=== PATIENT | male | born 1955 | race African-American/Black ===

== ENCOUNTER 2016-09-10 12:56 | Inpatient (IN) | payer OTHER ==
[2016-09-10 15:49] VITALS: BMI 24.3
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
[2016-09-10] MEDS ORDERED: MAGNESIUM HYDROX 2400MG/30ML ORAL SUSPENSION 30 ML CUP PO PRN (17:31)
[2016-09-10] MEDS ORDERED: P-EPHED 60MG/TRIPROLIDI 2.5MG TABLET PO PRN (17:31)
[2016-09-10] MEDS ORDERED: MAGNESIUM CITRATE 300 ML BOTTLE PO PRN (17:31)
[2016-09-10] MEDS ORDERED: NICOTINE POLACRILEX 2 MG GUM BC PRN (17:31)
[2016-09-10] MEDS ORDERED: guaiFENesin/D-METHORPHAN HB 10 ML UNIT-DOSE CUPS PO PRN (17:31)
[2016-09-10] MEDS ORDERED: chlordiazePOXIDE HCL 25 MG CAPSULE PO PRN (17:31)
[2016-09-10] MEDS ORDERED: ACETAMINOPHEN 325 MG TABLET (FP) PO PRN (17:31)
[2016-09-10] MEDS ORDERED: MAG HYDROX/AL HYDROX/SIMETH 30 ML UNIT-DOSE CUP PO PRN (17:31)
[2016-09-10] MEDS ORDERED: IBUPROFEN 400 MG TABLET (FP) PO PRN (17:31)
[2016-09-10] MEDS ORDERED: LOPERAMIDE HCL 2 MG CAPSULE PO PRN (17:31)
[2016-09-10] MEDS ORDERED: MENTHOL/PHENOL 1 EACH UD MM PRN (17:31)
[2016-09-10] MEDS ORDERED: hydrOXYzine PAMOATE 50 MG CAPSULE (FP) PO PRN (17:31)
[2016-09-10 21:16] LABS: URINE APPEARANCE CLEAR; URINE BILIRUBIN NEGATIVE (NEGATIVE); URINE BLOOD NEGATIVE (NEGATIVE); URINE COLOR LTYELLOW; URINE GLUCOSE (UA) NEGATIVE (NEGATIVE); URINE KETONE TRACE (NEGATIVE); URINE LEUK ESTERASE NEGATIVE (NEGATIVE); URINE NITRITE NEGATIVE (NEGATIVE); URINE PROTEIN NEGATIVE (NEGATIVE); URINE UROBILINOGEN NEGATIVE E.U./dl (0.2-1.0)
[2016-09-10] MEDS: diphenhydrAMINE HCL 50 MG CAPSULE PO PRN (22:41)
[2016-09-10] MEDS: LATANOPROST 0.005% OPHTH SOLN 2.5ML BOTTLE OD SCH (22:41)
[2016-09-10] MEDS: BRIMONIDINE TARTRATE 0.15% OPHTHALMIC 5 ML BOTTLE OD SCH (22:41)
[2016-09-10] MEDS: THIAMINE HCL 100 MG TABLET (FP) PO SCH (22:41)
[2016-09-10] MEDS: chlordiazePOXIDE HCL 25 MG CAPSULE PO SCH (22:41)
[2016-09-11] MEDS: chlordiazePOXIDE HCL 25 MG CAPSULE PO SCH ×4 (06:11→22:29)
[2016-09-11 10:09] LABS: MCHC 33.2 g/dl (32.0-35.9); MEAN CELL VOLUME 87.5 fl (80-96); MEAN PLT VOLUME 9.5 fl (7.5-11.1); PLATELET COUNT 185 K/MM3 (134-434); RDW 14.2 % (11.9-15.9)
--- NOTE | 2016-09-11 10:34 | CONSULT ---
[facility] Psychiatric Consult - Data Date of interview: 09/11/16 Admission source: [facility] Identifying data: Patient is approached at bedside,for psychiatric interview.He refuses." I have nothing to say to psychiatrists." Resting in bed.Back turned towards technical publications writer.Totally uncooperative and hostile.Staff is made aware.
[2016-09-11] MEDS: PRENATAL VITAMINS W/ FOLIC ACID TABLET (FP) PO SCH (10:41)
[2016-09-11] MEDS: NICOTINE 14 MG/24 HOURS TOPICAL PATCH TD SCH (10:42)
[2016-09-11] MEDS: BRIMONIDINE TARTRATE 0.15% OPHTHALMIC 5 ML BOTTLE OD SCH ×2 (10:42→22:29)
[2016-09-11 10:57] LABS: ALBUMIN 3.5 g/dl (3.4-5.0); ANION GAP 11 (8-16); CALCIUM 8.6 mg/dL (8.5-10.1); CO2 22 mmol/L (21-32); COCKROFT - GAULT 67.56; CREATININE 1.2 mg/dL (0.7-1.3); GLUCOSE,RANDOM 108 mg/dL (74-106); TOT PROT 7.5 g/dl (6.4-8.2)
[2016-09-11 10:58] LABS: ALK PHOS 71 U/L (45-117); BILIRUBIN,TOTAL 0.5 mg/dL (0.2-1.0); SGOT/AST 30 U/L (15-37); SGPT/ALT 20 U/L (12-78)
--- NOTE | 2016-09-11 11:45 | EKG ---
Test Reason : Blood Pressure : / mmHG Vent. Rate : 062 BPM Atrial Rate : 062 BPM P-R Int : 166 ms QRS Dur : 084 ms QT Int : 440 ms P-R-T Axes : 060 015 033 degrees QTc Int : 446 ms NORMAL SINUS RHYTHM NORMAL ECG NO PREVIOUS ECGS AVAILABLE Confirmed by SANDY ZARATE MD ([id number]) on 09/11/2016 11:44:57 AM Referred By: Confirmed By:SANDY ZARATE MD
--- NOTE | 2016-09-11 15:38 | PN ---
[facility] CIWA - CIWA Score Nausea/Vomitin-No Nausea/No Vomiting Muscle Tremors: 3 Anxiety: 4-Mod. Anxious/Guarded Agitation: 3 Paroxysmal Sweats: 3 Orientation: 0-Oriented Tacttile Disturbances: 1-Very Mild Itch/Numbness Auditory Disturbances: 0-None Visual Disturbances: 0-None Headache: 0-None Present CIWA-Ar Total Score: 14 BHS Progress Note (SOAP) Subjective: Anxiety,tremors,sweating,interrupted sleep,restless. Objective: 09/11/16 15:37 Vital Signs - 8 hr 09/11/16 09/11/16 09:38 13:40 Temperature 98.5 F 98.5 F Pulse Rate 64 69 Respiratory 18 18 Rate Blood Pressure 124/85 122/77 Laboratory Last Values WBC 4.0 K/mm3 (4.0-10.0) 09/11/16 06:00 RBC 4.60 M/mm3 (4.00-5.60) 09/11/16 06:00 Hgb 13.3 GM/dL (11.7-16.9) 09/11/16 06:00 Hct 40.2 % (35.4-49) 09/11/16 06:00 MCV 87.5 fl (80-96) 09/11/16 06:00 MCHC 33.2 g/dl (32.0-35.9) 09/11/16 06:00 RDW 14.2 % (11.9-15.9) 09/11/16 06:00 Plt Count 185 K/MM3 (134-434) D 09/11/16 06:00 MPV 9.5 fl (7.5-11.1) 09/11/16 06:00 Sodium 142 mmol/L (136-145) 09/11/16 06:00 Potassium 4.4 mmol/L (3.5-5.1) 09/11/16 06:00 Chloride 109 mmol/L (98-107) H 09/11/16 06:00 Carbon Dioxide 22 mmol/L (21-32) D 09/11/16 06:00 Anion Gap 11 (8-16) 09/11/16 06:00 BUN 18 mg/dL (7-18) 09/11/16 06:00 Creatinine 1.2 mg/dL (0.7-1.3) 09/11/16 06:00 Creat Clearance w eGFR > 60 (>60) 09/11/16 06:00 Random Glucose 108 mg/dL (74-106) H 09/11/16 06:00 Calcium 8.6 mg/dL (8.5-10.1) 09/11/16 06:00 Total Bilirubin 0.5 mg/dL (0.2-1.0) D 09/11/16 06:00 AST 30 U/L (15-37) D 09/11/16 06:00 ALT 20 U/L (12-78) 09/11/16 06:00 Alkaline Phosphatase 71 U/L (45-117) 09/11/16 06:00 Total Protein 7.5 g/dl (6.4-8.2) 09/11/16 06:00 Albumin 3.5 g/dl (3.4-5.0) 09/11/16 06:00 Urine Color Ltyellow 09/10/16 20:52 Urine Appearance Clear 09/10/16 20:52 Urine pH 5.0 (5.0-8.0) D 09/10/16 20:52 Ur Specific [place] 1.020 (1.005-1.025) 09/10/16 20:52 Urine Protein Negative (NEGATIVE) 09/10/16 20:52 Urine Glucose (UA) Negative (NEGATIVE) 09/10/16 20:52 Urine Ketones Trace (NEGATIVE) H 09/10/16 20:52 Urine Blood Negative (NEGATIVE) 09/10/16 20:52 Urine Nitrite Negative (NEGATIVE) 09/10/16 20:52 Urine Bilirubin Negative (NEGATIVE) 09/10/16 20:52 Urine Urobilinogen Negative E.U./dl (0.2-1.0) 09/10/16 20:52 Ur Leukocyte Esterase Negative (NEGATIVE) 09/10/16 20:52 RPR Titer Nonreactive (NONREACTIVE) 09/11/16 06:00 labs noted Assessment: 09/11/16 15:37 Withdrawal sx. Plan: Continue detox
[2016-09-11] MEDS: LATANOPROST 0.005% OPHTH SOLN 2.5ML BOTTLE OD SCH (22:28)
[2016-09-11] MEDS: THIAMINE HCL 100 MG TABLET (FP) PO SCH (22:28)
[2016-09-11] MEDS: diphenhydrAMINE HCL 50 MG CAPSULE PO PRN (22:29)
[2016-09-12] MEDS: chlordiazePOXIDE HCL 25 MG CAPSULE PO SCH ×3 (06:00→16:50)
[2016-09-12] MEDS: NICOTINE 14 MG/24 HOURS TOPICAL PATCH TD SCH (10:50)
[2016-09-12] MEDS: PRENATAL VITAMINS W/ FOLIC ACID TABLET (FP) PO SCH (10:50)
[2016-09-12] MEDS: BRIMONIDINE TARTRATE 0.15% OPHTHALMIC 5 ML BOTTLE OD SCH ×2 (10:50→22:12)
--- NOTE | 2016-09-12 11:37 | PN ---
[facility] CIWA - CIWA Score Nausea/Vomitin-No Nausea/No Vomiting Muscle Tremors: 4-Moderate,w/Arms Extend Anxiety: 4-Mod. Anxious/Guarded Agitation: 4-Moderately Restless Paroxysmal Sweats: 1-Minimal Palms Moist Orientation: 0-Oriented Tacttile Disturbances: 3-Moderate Itch/Numb/Burn Auditory Disturbances: 0-None Visual Disturbances: 0-None Headache: 0-None Present CIWA-Ar Total Score: 16 BHS Progress Note (SOAP) Subjective: SLIGHT ANXIETY,TREMORS,SWEATS. Objective: 09/12/16 11:37 Vital Signs Temperature 98.3 F 09/12/16 09:37 Pulse Rate 59 L 09/12/16 09:37 Respiratory Rate 18 09/12/16 09:37 Blood Pressure 137/88 09/12/16 09:37 O2 Sat by Pulse Oximetry (%) Laboratory Last Values WBC 4.0 K/mm3 (4.0-10.0) 09/11/16 06:00 RBC 4.60 M/mm3 (4.00-5.60) 09/11/16 06:00 Hgb 13.3 GM/dL (11.7-16.9) 09/11/16 06:00 Hct 40.2 % (35.4-49) 09/11/16 06:00 MCV 87.5 fl (80-96) 09/11/16 06:00 MCHC 33.2 g/dl (32.0-35.9) 09/11/16 06:00 RDW 14.2 % (11.9-15.9) 09/11/16 06:00 Plt Count 185 K/MM3 (134-434) D 09/11/16 06:00 MPV 9.5 fl (7.5-11.1) 09/11/16 06:00 Sodium 142 mmol/L (136-145) 09/11/16 06:00 Potassium 4.4 mmol/L (3.5-5.1) 09/11/16 06:00 Chloride 109 mmol/L (98-107) H 09/11/16 06:00 Carbon Dioxide 22 mmol/L (21-32) D 09/11/16 06:00 Anion Gap 11 (8-16) 09/11/16 06:00 BUN 18 mg/dL (7-18) 09/11/16 06:00 Creatinine 1.2 mg/dL (0.7-1.3) 09/11/16 06:00 Creat Clearance w eGFR > 60 (>60) 09/11/16 06:00 Random Glucose 108 mg/dL (74-106) H 09/11/16 06:00 Calcium 8.6 mg/dL (8.5-10.1) 09/11/16 06:00 Total Bilirubin 0.5 mg/dL (0.2-1.0) D 09/11/16 06:00 AST 30 U/L (15-37) D 09/11/16 06:00 ALT 20 U/L (12-78) 09/11/16 06:00 Alkaline Phosphatase 71 U/L (45-117) 09/11/16 06:00 Total Protein 7.5 g/dl (6.4-8.2) 09/11/16 06:00 Albumin 3.5 g/dl (3.4-5.0) 09/11/16 06:00 Urine Color Ltyellow 09/10/16 20:52 Urine Appearance Clear 09/10/16 20:52 Urine pH 5.0 (5.0-8.0) D 09/10/16 20:52 Ur Specific [place] 1.020 (1.005-1.025) 09/10/16 20:52 Urine Protein Negative (NEGATIVE) 09/10/16 20:52 Urine Glucose (UA) Negative (NEGATIVE) 09/10/16 20:52 Urine Ketones Trace (NEGATIVE) H 09/10/16 20:52 Urine Blood Negative (NEGATIVE) 09/10/16 20:52 Urine Nitrite Negative (NEGATIVE) 09/10/16 20:52 Urine Bilirubin Negative (NEGATIVE) 09/10/16 20:52 Urine Urobilinogen Negative E.U./dl (0.2-1.0) 09/10/16 20:52 Ur Leukocyte Esterase Negative (NEGATIVE) 09/10/16 20:52 RPR Titer Nonreactive (NONREACTIVE) 09/11/16 06:00 Assessment: 09/12/16 11:38 WITHDRAWAL SX Plan: CONTINUE DETOX
[2016-09-12] MEDS: chlordiazePOXIDE 5 MG CAPSULE PO SCH (22:12)
[2016-09-12] MEDS: THIAMINE HCL 100 MG TABLET (FP) PO SCH (22:12)
[2016-09-12] MEDS: LATANOPROST 0.005% OPHTH SOLN 2.5ML BOTTLE OD SCH (22:13)
[2016-09-12] MEDS: diphenhydrAMINE HCL 50 MG CAPSULE PO PRN (22:14)
[2016-09-13] MEDS: chlordiazePOXIDE 5 MG CAPSULE PO SCH ×3 (06:00→17:11)
[2016-09-13] MEDS: BRIMONIDINE TARTRATE 0.15% OPHTHALMIC 5 ML BOTTLE OD SCH ×2 (10:28→22:39)
[2016-09-13] MEDS: NICOTINE 14 MG/24 HOURS TOPICAL PATCH TD SCH (10:28)
[2016-09-13] MEDS: PRENATAL VITAMINS W/ FOLIC ACID TABLET (FP) PO SCH (10:28)
--- NOTE | 2016-09-13 11:05 | PN ---
BHS Progress Note (SOAP) Subjective: DECREASED ANXIETY. FATIGUE. Objective: 09/13/16 11:04 Vital Signs Temperature 97.2 F L 09/13/16 09:14 Pulse Rate 60 09/13/16 09:14 Respiratory Rate 18 09/13/16 09:14 Blood Pressure 124/81 09/13/16 09:14 O2 Sat by Pulse Oximetry (%) Assessment: 09/13/16 11:04 WITHDRAWAL SX Plan: CONTINUE DETOX
[2016-09-13] MEDS: THIAMINE HCL 100 MG TABLET (FP) PO SCH (22:38)
[2016-09-13] MEDS: diphenhydrAMINE HCL 50 MG CAPSULE PO PRN (22:39)
[2016-09-13] MEDS: chlordiazePOXIDE HCL 10 MG CAPSULE PO SCH (22:39)
[2016-09-13] MEDS: LATANOPROST 0.005% OPHTH SOLN 2.5ML BOTTLE OD SCH (22:40)
[2016-09-14] MEDS: chlordiazePOXIDE HCL 10 MG CAPSULE PO SCH (06:06)
[2016-09-14 08:57] VITALS: BP 112/76; PULSE 66; TEMP 99.8
--- NOTE | 2016-09-14 09:01 | DS ---
[facility] Detox Discharge Summary Admission Date: 09/10/16 Discharge Date: 09/14/16 - History Present History: Alcohol Dependence, Cocaine Dependence Additional Comments: DETOX COMPLETED.ALERT O X 3. NAD. Pertinent Past History: HX LEFT EYEBALL ENUCLEATION LEFT EYE BLINDNESS HEP C AIDS GLAUCOMA - Physical Exam Results Vital Signs: Vital Signs Temperature 99.8 F H 09/14/16 08:56 Pulse Rate 66 09/14/16 08:56 Respiratory Rate 18 09/14/16 08:56 Blood Pressure 112/76 09/14/16 08:56 O2 Sat by Pulse Oximetry (%) Pertinent Admission Physical Exam Findings: WITHDRAWAL SX - Treatment Hospital Course: Detox Protocol Followed, Detoxed Safely, Responded well, Discharged Condition Good - Medication Discharge Medications: Ambulatory Orders Brimonidine Tartrate [Alphagan 0.15% -] 1 drop OD TID #1 drops 09/15/14 Latanoprost 0.005% Eye Drops [Xalatan 0.005% Eye Drops -] 1 drop OD HS #1 drops 09/15/14 Quetiapine Fumarate [Seroquel -] 50 mg PO HS 09/10/16 Trazodone HCl [Desyrel -] 200 mg PO HS 09/10/16 - Diagnosis (1) Alcohol dependence with uncomplicated withdrawal Current Visit: Yes Status: Acute (2) Acquired immune deficiency syndrome (AIDS) Current Visit: Yes Status: Chronic (3) Blind left eye Current Visit: Yes Status: Chronic (4) Glaucoma Current Visit: Yes Status: Chronic Qualifiers: Glaucoma type: other Laterality: right Qualified Code(s): H40.89 - Other specified glaucoma (5) HEP-C Current Visit: Yes Status: Chronic (6) Nicotine dependence Current Visit: Yes Status: Acute Qualifiers: Nicotine product type: cigarettes Substance use status: in withdrawal Qualified Code(s): F17.213 - Nicotine dependence, cigarettes, with withdrawal - AMA Did Patient Leave Against Medical Advice: No
== END 2016-09-14 09:00 | disposition home or self-care (01) | DRG 775 ==
LOC: YASAS 12:56 → Y3N 19:06
PROVIDERS: ADMIT Internal Medicine; ATTEND Internal Medicine
PROC: HZ2ZZZZ Detoxification Services for Substance Abuse Treatment (ICD-10-PCS; principal; 2016-09-10)
DX: F10.230 Alcohol dependence with withdrawal, uncomplicated (principal); F17.213 Nicotine dependence, cigarettes, with withdrawal; F31.81 Bipolar II disorder; B20 Human immunodeficiency virus [HIV] disease; H54.42 Blindness, left eye, normal vision right eye; Z90.01 Acquired absence of eye; H40.89 Other specified glaucoma; B18.2 Chronic viral hepatitis C; Z87.898 Personal history of other specified conditions
CPT/HCPCS: 36415; 80053; 81003; 85027; 86593; 93005; 93010

== ENCOUNTER 2017-03-24 11:08 | Inpatient (IN) | payer OTHER ==
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
[2017-03-24] MEDS ORDERED: guaiFENesin/D-METHORPHAN HB 10 ML UNIT-DOSE CUPS PO PRN (14:17)
[2017-03-24] MEDS ORDERED: chlordiazePOXIDE HCL 25 MG CAPSULE PO ONE (14:17)
[2017-03-24] MEDS ORDERED: MAGNESIUM CITRATE 300 ML BOTTLE PO PRN (14:17)
[2017-03-24] MEDS ORDERED: MAG HYDROX/AL HYDROX/SIMETH 30 ML UNIT-DOSE CUP PO PRN (14:17)
[2017-03-24] MEDS ORDERED: chlordiazePOXIDE HCL 25 MG CAPSULE PO PRN (14:17)
[2017-03-24] MEDS ORDERED: NICOTINE POLACRILEX 2 MG GUM BC PRN (14:17)
[2017-03-24] MEDS ORDERED: MAGNESIUM HYDROX 2400MG/30ML ORAL SUSPENSION 30 ML CUP PO PRN (14:17)
[2017-03-24] MEDS ORDERED: MENTHOL/PHENOL 1 EACH UD MM PRN (14:17)
[2017-03-24] MEDS ORDERED: IBUPROFEN 400 MG TABLET (FP) PO PRN (14:17)
[2017-03-24] MEDS ORDERED: P-EPHED 60MG/TRIPROLIDI 2.5MG TABLET PO PRN (14:17)
[2017-03-24] MEDS ORDERED: ACETAMINOPHEN 325 MG TABLET (FP) PO PRN (14:17)
[2017-03-24] MEDS ORDERED: LOPERAMIDE HCL 2 MG CAPSULE PO PRN (14:17)
[2017-03-24] MEDS: NICOTINE 21 MG/24 HOURS TOPICAL PATCH TD SCH (15:07)
[2017-03-24 15:28] VITALS: BMI 25.1
[2017-03-24] MEDS: chlordiazePOXIDE HCL 25 MG CAPSULE PO SCH ×2 (16:58→22:28)
[2017-03-24] MEDS ORDERED: hydrOXYzine PAMOATE 50 MG CAPSULE (FP) PO PRN (18:06)
[2017-03-24 20:55] LABS: URINE APPEARANCE SLCLOUDY; URINE BILIRUBIN NEGATIVE (NEGATIVE); URINE BLOOD NEGATIVE (NEGATIVE); URINE COLOR YELLOW; URINE GLUCOSE (UA) NEGATIVE (NEGATIVE); URINE KETONE NEGATIVE (NEGATIVE); URINE NITRITE NEGATIVE (NEGATIVE); URINE PROTEIN NEGATIVE (NEGATIVE); URINE UROBILINOGEN NEGATIVE mg/dL (0.2-1.0)
[2017-03-24] MEDS: THIAMINE HCL 100 MG TABLET (FP) PO SCH (22:27)
[2017-03-24] MEDS: diphenhydrAMINE HCL 25 MG CAPSULE (FP) PO PRN (22:29)
[2017-03-24] MEDS: LATANOPROST 0.005% OPHTH SOLN 2.5ML BOTTLE OD SCH (22:30)
[2017-03-24] MEDS: BRIMONIDINE TARTRATE 0.15% OPHTHALMIC 5 ML BOTTLE OD SCH (22:30)
[2017-03-24 23:20] LABS: URINE LEUK ESTERASE Negative (NEGATIVE)
[2017-03-25] MEDS: BRIMONIDINE TARTRATE 0.15% OPHTHALMIC 5 ML BOTTLE OD SCH ×3 (05:43→22:12)
[2017-03-25] MEDS: chlordiazePOXIDE HCL 25 MG CAPSULE PO SCH ×4 (05:43→22:12)
--- NOTE | 2017-03-25 09:32 | PN ---
S CIWA - CIWA Score Nausea/Vomitin Muscle Tremors: 3 Anxiety: 3 Agitation: 3 Paroxysmal Sweats: 3 Orientation: 0-Oriented Tacttile Disturbances: 1-Very Mild Itch/Numbness Auditory Disturbances: 0-None Visual Disturbances: 0-None Headache: 1-Very Mild CIWA-Ar Total Score: 17 S Progress Note (SOAP) Subjective: nausea, sweats, interrupted sleep, anxiety, trmeors Objective: 03/25/17 09:31 Vital Signs - 8 hr 03/25/17 03/25/17 04:13 06:30 Temperature 97.4 F L Pulse Rate 48 L Respiratory 18 18 Rate Blood Pressure 115/75 Laboratory Tests 03/24/17 15:33 Urine Color Yellow Urine Appearance Slcloudy Urine pH 6.0 Ur Specific [place] 1.025 Urine Protein Negative Urine Glucose (UA) Negative Urine Ketones Negative Urine Blood Negative Urine Nitrite Negative Urine Bilirubin Negative Urine Urobilinogen Negative Ur Leukocyte Esterase Negative labs still pending Assessment: 03/25/17 09:31 withdrawal sx, cont detox, fluids, encourage ambulation
[2017-03-25 10:00] LABS: MCHC 32.8 g/dl (32.0-35.9); MEAN CELL VOLUME 88.3 fl (80-96); MEAN PLT VOLUME 8.9 fl (7.5-11.1); PLATELET COUNT 143 K/MM3 (134-434); RDW 14.6 % (11.9-15.9); WHITE BLOOD COUNT 3.4 K/mm3 (4.0-10.0)
[2017-03-25 10:22] LABS: ALBUMIN 3.1 g/dl (3.4-5.0); ANION GAP 3 (8-16); CALCIUM 8.5 mg/dL (8.5-10.1); CO2 32 mmol/L (21-32); CREATININE 1.1 mg/dL (0.7-1.3); GLUCOSE,RANDOM 91 mg/dL (74-106); SGOT/AST 25 U/L (15-37); SGPT/ALT 18 U/L (12-78)
[2017-03-25 10:24] LABS: ALK PHOS 84 U/L (45-117); BILIRUBIN,TOTAL 0.7 mg/dL (0.2-1.0)
[2017-03-25] MEDS: NICOTINE 21 MG/24 HOURS TOPICAL PATCH TD SCH (10:32)
[2017-03-25] MEDS: PRENATAL VITAMINS W/ FOLIC ACID TABLET (FP) PO SCH (10:32)
--- NOTE | 2017-03-25 11:10 | CONSULT ---
[facility] Psychiatric Consult - Data Date of interview: 03/25/17 Admission source: [facility] Identifying data: Readmission to [facility] for this 61 y/o AA male seeking detox treatment on for alcohol and cocaine (crack) dependence.Patient is single,a father of two,domiciled,unemployed and supported on welfare. Substance Abuse History: Confirmed by patient in this interview.See current [facility] report for details : Smoking Cessation. Smoking history: Current every day smoker. Have you smoked in the past 12 months: Yes. Aproximately how many cigarettes per day: 10. Cigars Per Day: 0. Hx Chewing Tobacco Use: No. Initiated information on smoking cessation: Yes. 'Breaking Loose' booklet given : 03/24/17. - Substance & Tx. History. Hx Alcohol Use: Yes. Hx Substance Use : Yes. Substance Use Type: Alcohol. Hx Substance Use Treatment: Yes (Detox 2015 [facility]). - Substances Abused. Alcohol. Route: Oral. Frequency: Daily. Amount used: Vodka 1 pint, beer- 2 six pack. Age of first use: 13. Date of Last Use: 03/23/17. Crack. Route: Smoking. Frequency: Daily. Amount used : 3 bags. Age of first use: 23. Date of Last Use: 03/23/17 Medical History: HIV infection since 1989,glaucoma (right eye),hepatitis C, history of enucleation of left eye (prosthesis since 1970) and right inguinal herniorraphy (2012). Psychiatric History: Patient is a marginally cooperative and unreliable historian.In this interview,he denies history of previous contacts with mental healthcare providers.A more accurate longitudinal history is extracted from previous records and summarized as follows : early onset of psychiatric disturbances.[facility] and institutionalized for many years.Suspicion of ADHD at the time.Involuntary committment to [facility] (1970) for serious suicidal ideation with intent to jump [place] of the [facility].Noted history of multiple psychiatric hospitalizations.Diagnosed with Schizoaffective Disorder at [place].Mr Crane used to be prescribed sertraline,risperidone,trazodone and he has been known for chronic non-adherence to OPD care + medications.Denies history of suicide attempts in this session. Physical/Sexual Abuse/Trauma History: Patient denies. Additional Comment: Urine Drug Screen Results: RADHAMES-Cocaine, BZO-Benzodiazepines , TCA-Tricyclic Antidepressant.Noted. Mental Status Exam - Mental Status Exam Alert and Oriented to: Time, Place, Person Cognitive Function: Good Patient Appearance: Disheveled Mood: Withdrawn, Irritable Affect: Mood Congruent Patient Behavior: Fatigued, Guarded, Cooperative (superficially cooperative) Speech Pattern: Clear Voice Loudness: Normal Thought Process: Goal Oriented Thought Disorder: Not Present Hallucinations: Denies Suicidal Ideation: Denies Homicidal Ideation: Denies Insight/Judgement: Poor Sleep: Well Appetite: Good Gait/Station: Normal Psychiatric Findings - Problem List ([place] 1, 2,3) (1) Alcohol dependence with uncomplicated withdrawal Current Visit: Yes Status: Acute (2) Cocaine dependence, uncomplicated Current Visit: Yes Status: Acute (3) Nicotine dependence Current Visit: Yes Status: Acute Qualifiers: Nicotine product type: cigarettes Substance use status: in withdrawal Qualified Code(s): F17.213 - Nicotine dependence, cigarettes, with withdrawal (4) Substance induced mood disorder Current Visit: Yes Status: Acute - Initial Treatment Plan Initial Treatment Plan: Psychoeducation.Detoxification.Patient denies psychiatric issues and declines to be on any psychotropic drugs other than medications necessary for detoxification purposes.Observation.
--- NOTE | 2017-03-25 13:33 | EKG ---
Test Reason : Blood Pressure : / mmHG Vent. Rate : 063 BPM Atrial Rate : 063 BPM P-R Int : 166 ms QRS Dur : 090 ms QT Int : 458 ms P-R-T Axes : 058 008 023 degrees QTc Int : 468 ms SINUS RHYTHM WITH PREMATURE ATRIAL COMPLEXES OTHERWISE NORMAL ECG WHEN COMPARED WITH ECG OF 10-SEP-2016 19:21, PREMATURE ATRIAL COMPLEXES ARE NOW PRESENT Confirmed by SANDY ZARATE MD ([id number]) on 03/25/2017 1:32:48 PM Referred By: Confirmed By:SANDY ZARATE MD
[2017-03-25] MEDS: diphenhydrAMINE HCL 25 MG CAPSULE (FP) PO PRN ×2 (17:08→22:31)
[2017-03-25] MEDS: LATANOPROST 0.005% OPHTH SOLN 2.5ML BOTTLE OD SCH (22:12)
[2017-03-25] MEDS: THIAMINE HCL 100 MG TABLET (FP) PO SCH (22:12)
[2017-03-26] MEDS: chlordiazePOXIDE HCL 25 MG CAPSULE PO SCH ×2 (05:29→10:21)
[2017-03-26] MEDS: BRIMONIDINE TARTRATE 0.15% OPHTHALMIC 5 ML BOTTLE OD SCH ×3 (05:30→22:17)
[2017-03-26] MEDS: PRENATAL VITAMINS W/ FOLIC ACID TABLET (FP) PO SCH (10:21)
[2017-03-26] MEDS: NICOTINE 21 MG/24 HOURS TOPICAL PATCH TD SCH (10:21)
--- NOTE | 2017-03-26 15:20 | PN ---
[facility] CIWA - CIWA Score Nausea/Vomitin-No Nausea/No Vomiting Muscle Tremors: 3 Anxiety: 5 Agitation: 3 Paroxysmal Sweats: 3 Orientation: 2-Disoriented Date<2 days Tacttile Disturbances: 1-Very Mild Itch/Numbness Auditory Disturbances: 0-None Visual Disturbances: 2-Mild Sensitivity Headache: 0-None Present CIWA-Ar Total Score: 19 BHS Progress Note (SOAP) Subjective: Sweating, Tremors, Fatigue, Anxious. Objective: PT. A & O X 2 (UNCERTAIN ABOUT DAY/ DATE). PT. OBSERVED AMBULATING ON UNIT. NO ACUTE DISTRESS. 03/26/17 15:20 Vital Signs Temperature 97.5 F L 03/26/17 13:43 Pulse Rate 80 03/26/17 13:43 Respiratory Rate 16 03/26/17 13:43 Blood Pressure 133/78 03/26/17 13:43 O2 Sat by Pulse Oximetry (%) Laboratory Tests 03/24/17 03/25/17 03/25/17 15:33 07:00 07:00 WBC 3.4 L RBC 4.67 Hgb 13.5 Hct 41.3 MCV 88.3 MCH 29.0 MCHC 32.8 RDW 14.6 Plt Count 143 D MPV 8.9 Sodium 142 Potassium 4.6 Chloride 107 Carbon Dioxide 32 D Anion Gap 3 L BUN 14 D Creatinine 1.1 Creat Clearance w eGFR > 60 Random Glucose 91 Calcium 8.5 Total Bilirubin 0.7 D AST 25 ALT 18 Alkaline Phosphatase 84 Total Protein 7.0 Albumin 3.1 L Urine Color Yellow Urine Appearance Slcloudy Urine pH 6.0 Ur Specific [place] 1.025 Urine Protein Negative Urine Glucose (UA) Negative Urine Ketones Negative Urine Blood Negative Urine Nitrite Negative Urine Bilirubin Negative Urine Urobilinogen Negative Ur Leukocyte Esterase Negative RPR Titer 03/25/17 07:00 WBC RBC Hgb Hct MCV MCH MCHC RDW Plt Count MPV Sodium Potassium Chloride Carbon Dioxide Anion Gap BUN Creatinine Creat Clearance w eGFR Random Glucose Calcium Total Bilirubin AST ALT Alkaline Phosphatase Total Protein Albumin Urine Color Urine Appearance Urine pH Ur Specific [place] Urine Protein Urine Glucose (UA) Urine Ketones Urine Blood Urine Nitrite Urine Bilirubin Urine Urobilinogen Ur Leukocyte Esterase RPR Titer Nonreactive LABS NOTED. Assessment: 03/26/17 15:21 WITHDRAWAL SYMPTOMS. Plan: CONTINUE DETOX. INCREASE DAILY PO FLUID INTAKE. ENCOURAGE AMBULATION.
[2017-03-26] MEDS: chlordiazePOXIDE 5 MG CAPSULE PO SCH ×2 (17:07→22:17)
[2017-03-26] MEDS: THIAMINE HCL 100 MG TABLET (FP) PO SCH (22:17)
[2017-03-26] MEDS: LATANOPROST 0.005% OPHTH SOLN 2.5ML BOTTLE OD SCH (22:17)
[2017-03-26] MEDS: diphenhydrAMINE HCL 25 MG CAPSULE (FP) PO PRN (22:18)
[2017-03-27] MEDS: BRIMONIDINE TARTRATE 0.15% OPHTHALMIC 5 ML BOTTLE OD SCH ×3 (05:36→22:15)
[2017-03-27] MEDS: chlordiazePOXIDE 5 MG CAPSULE PO SCH ×2 (05:36→10:32)
[2017-03-27] MEDS: PRENATAL VITAMINS W/ FOLIC ACID TABLET (FP) PO SCH (10:32)
[2017-03-27] MEDS: NICOTINE 21 MG/24 HOURS TOPICAL PATCH TD SCH (10:32)
--- NOTE | 2017-03-27 14:47 | PN ---
BHS Progress Note (SOAP) Subjective: Sweating, Anxious. Objective: PT. A 7O X 2 (UNCERTAIN ABOUT DAY/ DATE). PT. OBSERVED AMBULATING ON UNIT. NO ACUTE DISTRESS. 03/27/17 14:46 Vital Signs Temperature 98.9 F 03/27/17 13:07 Pulse Rate 69 03/27/17 13:07 Respiratory Rate 18 03/27/17 13:07 Blood Pressure 119/79 03/27/17 13:07 O2 Sat by Pulse Oximetry (%) Laboratory Tests 03/24/17 03/25/17 03/25/17 15:33 07:00 07:00 WBC 3.4 L RBC 4.67 Hgb 13.5 Hct 41.3 MCV 88.3 MCH 29.0 MCHC 32.8 RDW 14.6 Plt Count 143 D MPV 8.9 Sodium 142 Potassium 4.6 Chloride 107 Carbon Dioxide 32 D Anion Gap 3 L BUN 14 D Creatinine 1.1 Creat Clearance w eGFR > 60 Random Glucose 91 Calcium 8.5 Total Bilirubin 0.7 D AST 25 ALT 18 Alkaline Phosphatase 84 Total Protein 7.0 Albumin 3.1 L Urine Color Yellow Urine Appearance Slcloudy Urine pH 6.0 Ur Specific [place] 1.025 Urine Protein Negative Urine Glucose (UA) Negative Urine Ketones Negative Urine Blood Negative Urine Nitrite Negative Urine Bilirubin Negative Urine Urobilinogen Negative Ur Leukocyte Esterase Negative RPR Titer 03/25/17 07:00 WBC RBC Hgb Hct MCV MCH MCHC RDW Plt Count MPV Sodium Potassium Chloride Carbon Dioxide Anion Gap BUN Creatinine Creat Clearance w eGFR Random Glucose Calcium Total Bilirubin AST ALT Alkaline Phosphatase Total Protein Albumin Urine Color Urine Appearance Urine pH Ur Specific [place] Urine Protein Urine Glucose (UA) Urine Ketones Urine Blood Urine Nitrite Urine Bilirubin Urine Urobilinogen Ur Leukocyte Esterase RPR Titer Nonreactive LABS NOTED. Assessment: 03/27/17 14:47 WITHDRAWAL SYMPTOMS. Plan: CONTINUE DETOX.
[2017-03-27] MEDS: chlordiazePOXIDE HCL 10 MG CAPSULE PO SCH ×2 (17:33→22:14)
[2017-03-27] MEDS: THIAMINE HCL 100 MG TABLET (FP) PO SCH (22:14)
[2017-03-27] MEDS: diphenhydrAMINE HCL 25 MG CAPSULE (FP) PO PRN (22:15)
[2017-03-27] MEDS: LATANOPROST 0.005% OPHTH SOLN 2.5ML BOTTLE OD SCH (22:15)
[2017-03-28] MEDS: BRIMONIDINE TARTRATE 0.15% OPHTHALMIC 5 ML BOTTLE OD SCH (05:57)
[2017-03-28] MEDS: chlordiazePOXIDE HCL 10 MG CAPSULE PO SCH (05:57)
[2017-03-28 08:56] VITALS: BP 129/76; PULSE 72; TEMP 98.8
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
== END 2017-03-28 09:08 | disposition home or self-care (01) | DRG 774 ==
LOC: YASAS 11:08 → Y3N 12:25
PROVIDERS: ADMIT Internal Medicine; ATTEND Internal Medicine
PROC: HZ2ZZZZ Detoxification Services for Substance Abuse Treatment (ICD-10-PCS; principal; 2017-03-24)
DX: F10.230 Alcohol dependence with withdrawal, uncomplicated (principal); F14.20 Cocaine dependence, uncomplicated; F17.210 Nicotine dependence, cigarettes, uncomplicated; F19.24 Other psychoactive substance dependence with psychoactive substance-induced mood disorder; F32.9 Major depressive disorder, single episode, unspecified; B20 Human immunodeficiency virus [HIV] disease; B18.2 Chronic viral hepatitis C; H54.40 Blindness, one eye, unspecified eye
CPT/HCPCS: 36415; 80053; 81003; 85027; 86593; 93005; 93010

== ENCOUNTER 2017-10-13 09:07 | Inpatient (IN) | payer OTHER ==
[2017-10-13 09:22] VITALS: BMI 24.7
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
[2017-10-13] MEDS ORDERED: MAG HYDROX/AL HYDROX/SIMETH 30 ML UNIT-DOSE CUP PO PRN (12:48)
[2017-10-13] MEDS ORDERED: guaiFENesin/D-METHORPHAN HB 10 ML UNIT-DOSE CUPS PO PRN (12:48)
[2017-10-13] MEDS ORDERED: MAGNESIUM CITRATE 300 ML BOTTLE PO PRN (12:48)
[2017-10-13] MEDS ORDERED: NICOTINE POLACRILEX 2 MG GUM BC PRN (12:48)
[2017-10-13] MEDS ORDERED: MAGNESIUM HYDROX 2400MG/30ML ORAL SUSPENSION 30 ML CUP PO PRN (12:48)
[2017-10-13] MEDS ORDERED: hydrOXYzine PAMOATE 50 MG CAPSULE (FP) PO PRN (12:48)
[2017-10-13] MEDS ORDERED: LOPERAMIDE HCL 2 MG CAPSULE PO PRN (12:48)
[2017-10-13] MEDS ORDERED: chlordiazePOXIDE HCL 25 MG CAPSULE PO PRN (12:48)
[2017-10-13] MEDS ORDERED: MENTHOL/PHENOL 1 EACH UD MM PRN (12:48)
[2017-10-13] MEDS ORDERED: IBUPROFEN 400 MG TABLET (FP) PO PRN (12:48)
[2017-10-13] MEDS ORDERED: ACETAMINOPHEN 325 MG TABLET (FP) PO PRN (12:48)
[2017-10-13] MEDS ORDERED: P-EPHED 60MG/TRIPROLIDI 2.5MG TABLET PO PRN (12:48)
[2017-10-13] MEDS: chlordiazePOXIDE HCL 25 MG CAPSULE PO SCH ×2 (16:55→22:13)
[2017-10-13 18:59] LABS: URINE APPEARANCE CLEAR; URINE BILIRUBIN NEGATIVE (<2.0 mg/dL); URINE COLOR YELLOW; URINE GLUCOSE (UA) NEGATIVE (NEGATIVE); URINE KETONE NEGATIVE (NEGATIVE); URINE LEUK ESTERASE NEGATIVE (NEGATIVE); URINE NITRITE NEGATIVE (NEGATIVE); URINE PROTEIN NEGATIVE (NEGATIVE)
[2017-10-13] MEDS ORDERED: MELATONIN 5 MG TABLETS PO PRN (22:00)
[2017-10-13] MEDS: THIAMINE HCL 100 MG TABLET (FP) PO SCH (22:14)
[2017-10-14] MEDS: chlordiazePOXIDE HCL 25 MG CAPSULE PO SCH ×4 (05:12→22:14)
[2017-10-14 10:03] LABS: HEMATOCRIT 40.6 % (35.4-49); HEMOGLOBIN 14.1 GM/dL (11.7-16.9); MCH 31.3 pg (25.7-33.7); MCHC 34.7 g/dl (32.0-35.9); MEAN CELL VOLUME 90.2 fl (80-96); PLATELET COUNT 122 K/MM3 (134-434); RDW 13.5 % (11.9-15.9); WHITE BLOOD COUNT 2.9 K/mm3 (4.0-10.0)
[2017-10-14 10:18] LABS: ALBUMIN 3.3 g/dl (3.4-5.0); ALK PHOS 79 U/L (45-117); ANION GAP 7 (8-16); BILIRUBIN,TOTAL 0.8 mg/dL (0.2-1.0); BLOOD UREA NITROGEN 14 mg/dL (7-18); CALCIUM 8.6 mg/dL (8.5-10.1); CHLORIDE 106 mmol/L (98-107); CO2 28 mmol/L (21-32); CREATININE 1.1 mg/dL (0.7-1.3); GLUCOSE,RANDOM 90 mg/dL (74-106); POTASSIUM 4.1 mmol/L (3.5-5.1); SGOT/AST 26 U/L (15-37); SGPT/ALT 21 U/L (12-78); SODIUM 141 mmol/L (136-145); TOT PROT 7.1 g/dl (6.4-8.2)
[2017-10-14] MEDS: PRENATAL VITAMINS W/ FOLIC ACID TABLET (FP) PO SCH (10:22)
[2017-10-14] MEDS: NICOTINE 14 MG/24 HOURS TOPICAL PATCH TD SCH (10:23)
--- NOTE | 2017-10-14 11:10 | CONSULT ---
[facility] Psychiatric Consult - Data Date of interview: 10/14/17 Admission source: [facility] Identifying data: Stained Glass Glazier approached patient for psychiatric consultation. Pt. refused. Pt. stated, " i don't feel well. I don't want to speak to you today." Nursing staff informed.
--- NOTE | 2017-10-14 11:23 | PN ---
S CIWA - CIWA Score Nausea/Vomitin-No Nausea/No Vomiting Muscle Tremors: 4-Moderate,w/Arms Extend Anxiety: 4-Mod. Anxious/Guarded Agitation: 4-Moderately Restless Paroxysmal Sweats: 1-Minimal Palms Moist Orientation: 0-Oriented Tacttile Disturbances: 0-None Auditory Disturbances: 0-None Visual Disturbances: 0-None Headache: 0-None Present CIWA-Ar Total Score: 13 BHS Progress Note (SOAP) Subjective: ANXIETY,SWEATS,FATIGUE. Objective: 10/14/17 11:22 Vital Signs 10/14/17 10/14/17 10/14/17 03:30 06:13 09:10 Temperature 97.4 F L 96.5 F L Pulse Rate 49 L 57 L Respiratory 18 18 18 Rate Blood Pressure 141/77 147/78 Laboratory Tests 10/13/17 10/14/17 10/14/17 18:00 07:30 07:30 WBC 2.9 L RBC 4.50 Hgb 14.1 Hct 40.6 MCV 90.2 MCH 31.3 MCHC 34.7 RDW 13.5 Plt Count 122 L MPV 9.0 Sodium 141 Potassium 4.1 Chloride 106 Carbon Dioxide 28 Anion Gap 7 L BUN 14 Creatinine 1.1 Creat Clearance w eGFR > 60 Random Glucose 90 Calcium 8.6 Total Bilirubin 0.8 AST 26 ALT 21 Alkaline Phosphatase 79 Total Protein 7.1 Albumin 3.3 L Urine Color Yellow Urine Appearance Clear Urine pH 5.0 Ur Specific [place] 1.020 Urine Protein Negative Urine Glucose (UA) Negative Urine Ketones Negative Urine Blood Negative Urine Nitrite Negative Urine Bilirubin Negative Urine Urobilinogen 2.0 Ur Leukocyte Esterase Negative Assessment: 10/14/17 11:22 WITHDRAWAL SX Plan: CONTINUE DETOX
--- NOTE | 2017-10-14 22:12 | EKG ---
Test Reason : Blood Pressure : / mmHG Vent. Rate : 065 BPM Atrial Rate : 065 BPM P-R Int : 166 ms QRS Dur : 086 ms QT Int : 430 ms P-R-T Axes : 060 -06 020 degrees QTc Int : 447 ms NORMAL SINUS RHYTHM NORMAL ECG WHEN COMPARED WITH ECG OF 24-MAR-2017 16:12, PREMATURE ATRIAL COMPLEXES ARE NO LONGER PRESENT Confirmed by SANDY ZARATE MD ([id number]) on 10/14/2017 10:12:19 PM Referred By: Matthew Valdovinos Confirmed By:SANDY ZARATE MD
[2017-10-14] MEDS: THIAMINE HCL 100 MG TABLET (FP) PO SCH (22:14)
[2017-10-15] MEDS: chlordiazePOXIDE HCL 25 MG CAPSULE PO SCH ×2 (05:20→10:30)
[2017-10-15 09:16] VITALS: BP 136/83; PULSE 60; TEMP 97
[2017-10-15] MEDS: NICOTINE 14 MG/24 HOURS TOPICAL PATCH TD SCH (10:30)
[2017-10-15] MEDS: PRENATAL VITAMINS W/ FOLIC ACID TABLET (FP) PO SCH (10:30)
--- NOTE | 2017-10-15 11:17 | PN ---
S CIWA - CIWA Score Nausea/Vomitin-No Nausea/No Vomiting Muscle Tremors: 4-Moderate,w/Arms Extend Anxiety: 4-Mod. Anxious/Guarded Agitation: 4-Moderately Restless Paroxysmal Sweats: 1-Minimal Palms Moist Orientation: 0-Oriented Tacttile Disturbances: 0-None Auditory Disturbances: 0-None Visual Disturbances: 0-None Headache: 0-None Present CIWA-Ar Total Score: 13 S Progress Note (SOAP) Subjective: IANXIETY, SWEATS,TRMORS,FATIGUE. Objective: 10/15/17 11:16 Vital Signs 10/15/17 10/15/17 10/15/17 03:30 06:10 06:30 Temperature 97.6 F Pulse Rate 51 L Respiratory 18 18 18 Rate Blood Pressure 85/53 10/15/17 10/15/17 06:48 09:16 Temperature 97.5 F L 97.0 F L Pulse Rate 46 L 60 Respiratory 18 18 Rate Blood Pressure 137/80 136/83 Laboratory Tests 10/13/17 10/14/17 10/14/17 18:00 07:30 07:30 WBC 2.9 L RBC 4.50 Hgb 14.1 Hct 40.6 MCV 90.2 MCH 31.3 MCHC 34.7 RDW 13.5 Plt Count 122 L MPV 9.0 Sodium 141 Potassium 4.1 Chloride 106 Carbon Dioxide 28 Anion Gap 7 L BUN 14 Creatinine 1.1 Creat Clearance w eGFR > 60 Random Glucose 90 Calcium 8.6 Total Bilirubin 0.8 AST 26 ALT 21 Alkaline Phosphatase 79 Total Protein 7.1 Albumin 3.3 L Urine Color Yellow Urine Appearance Clear Urine pH 5.0 Ur Specific [place] 1.020 Urine Protein Negative Urine Glucose (UA) Negative Urine Ketones Negative Urine Blood Negative Urine Nitrite Negative Urine Bilirubin Negative Urine Urobilinogen 2.0 Ur Leukocyte Esterase Negative RPR Titer 10/14/17 07:30 WBC RBC Hgb Hct MCV MCH MCHC RDW Plt Count MPV Sodium Potassium Chloride Carbon Dioxide Anion Gap BUN Creatinine Creat Clearance w eGFR Random Glucose Calcium Total Bilirubin AST ALT Alkaline Phosphatase Total Protein Albumin Urine Color Urine Appearance Urine pH Ur Specific [place] Urine Protein Urine Glucose (UA) Urine Ketones Urine Blood Urine Nitrite Urine Bilirubin Urine Urobilinogen Ur Leukocyte Esterase RPR Titer Nonreactive Assessment: 10/15/17 11:17 WITHDRAWAL SX Plan: CONTINUE DETOX
--- NOTE | 2017-10-15 13:40 | DS ---
[facility] Detox Discharge Summary Admission Date: 10/13/17 Discharge Date: 10/15/17 - History Present History: Alcohol Dependence, Cocaine Dependence Additional Comments: PT SIGNED OUT AMA. PT WILL F/U WITH PRIMARY CARE AT [facility]. Pertinent Past History: PLEASE SEE DX BELOW - Physical Exam Results Vital Signs: Vital Signs Temperature 97.0 F L 10/15/17 09:16 Pulse Rate 60 10/15/17 09:16 Respiratory Rate 18 10/15/17 09:16 Blood Pressure 136/83 10/15/17 09:16 O2 Sat by Pulse Oximetry (%) Pertinent Admission Physical Exam Findings: WITHDRAWAL SX Laboratory Tests 10/13/17 10/14/17 10/14/17 18:00 07:30 07:30 WBC 2.9 L RBC 4.50 Hgb 14.1 Hct 40.6 MCV 90.2 MCH 31.3 MCHC 34.7 RDW 13.5 Plt Count 122 L MPV 9.0 Sodium 141 Potassium 4.1 Chloride 106 Carbon Dioxide 28 Anion Gap 7 L BUN 14 Creatinine 1.1 Creat Clearance w eGFR > 60 Random Glucose 90 Calcium 8.6 Total Bilirubin 0.8 AST 26 ALT 21 Alkaline Phosphatase 79 Total Protein 7.1 Albumin 3.3 L Urine Color Yellow Urine Appearance Clear Urine pH 5.0 Ur Specific [place] 1.020 Urine Protein Negative Urine Glucose (UA) Negative Urine Ketones Negative Urine Blood Negative Urine Nitrite Negative Urine Bilirubin Negative Urine Urobilinogen 2.0 Ur Leukocyte Esterase Negative RPR Titer 10/14/17 07:30 WBC RBC Hgb Hct MCV MCH MCHC RDW Plt Count MPV Sodium Potassium Chloride Carbon Dioxide Anion Gap BUN Creatinine Creat Clearance w eGFR Random Glucose Calcium Total Bilirubin AST ALT Alkaline Phosphatase Total Protein Albumin Urine Color Urine Appearance Urine pH Ur Specific [place] Urine Protein Urine Glucose (UA) Urine Ketones Urine Blood Urine Nitrite Urine Bilirubin Urine Urobilinogen Ur Leukocyte Esterase RPR Titer Nonreactive - Treatment Hospital Course: Discharged Condition Good - Medication Discharge Medications: Ambulatory Orders Trazodone HCl 100 mg PO HS 10/13/17 - Diagnosis (1) Alcohol dependence with uncomplicated withdrawal Current Visit: Yes Status: Acute (2) Nicotine dependence Current Visit: Yes Status: Acute Qualifiers: Nicotine product type: cigarettes Substance use status: in withdrawal Qualified Code(s): F17.213 - Nicotine dependence, cigarettes, with withdrawal (3) Acquired immune deficiency syndrome (AIDS) Current Visit: Yes Status: Chronic (4) Cocaine dependence, uncomplicated Current Visit: Yes Status: Acute (5) History of enucleation of left eyeball Current Visit: Yes Status: Chronic (6) Weight decreased Current Visit: Yes Status: Active - AMA Did Patient Leave Against Medical Advice: Yes ([facility])
[2017-10-15] MEDS ORDERED: chlordiazePOXIDE 5 MG CAPSULE PO SCH (17:00)
[2017-10-16] MEDS ORDERED: chlordiazePOXIDE HCL 10 MG CAPSULE PO SCH (17:00)
== END 2017-10-15 12:30 | disposition left against medical advice (07) | DRG 770 ==
LOC: YASAS 09:07 → Y3N 12:01
PROVIDERS: ADMIT Family Medicine Addiction Medicine; ATTEND Family Medicine Addiction Medicine
PROC: HZ2ZZZZ Detoxification Services for Substance Abuse Treatment (ICD-10-PCS; principal; 2017-10-13)
DX: F10.230 Alcohol dependence with withdrawal, uncomplicated (principal); F14.20 Cocaine dependence, uncomplicated; F17.210 Nicotine dependence, cigarettes, uncomplicated; F32.9 Major depressive disorder, single episode, unspecified; B20 Human immunodeficiency virus [HIV] disease; R63.4 Abnormal weight loss; Z68.24 Body mass index [BMI] 24.0-24.9, adult; F31.9 Bipolar disorder, unspecified; B18.2 Chronic viral hepatitis C; Z88.8 Allergy status to other drugs, medicaments and biological substances; Z91.018 Allergy to other foods
CPT/HCPCS: 36415; 80053; 81003; 85027; 86593; 93005; 93010

== ENCOUNTER 2017-11-19 12:57 | Inpatient (IN) | payer OTHER ==
[2017-11-19 14:47] VITALS: BMI 24.7
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
[2017-11-19] MEDS ORDERED: LOPERAMIDE HCL 2 MG CAPSULE PO PRN (17:43)
[2017-11-19] MEDS ORDERED: P-EPHED 60MG/TRIPROLIDI 2.5MG TABLET PO PRN (17:43)
[2017-11-19] MEDS ORDERED: MAG HYDROX/AL HYDROX/SIMETH 30 ML UNIT-DOSE CUP PO PRN (17:43)
[2017-11-19] MEDS ORDERED: ACETAMINOPHEN 325 MG TABLET (FP) PO PRN (17:43)
[2017-11-19] MEDS ORDERED: guaiFENesin/D-METHORPHAN HB 10 ML UNIT-DOSE CUPS PO PRN (17:43)
[2017-11-19] MEDS ORDERED: hydrOXYzine PAMOATE 50 MG CAPSULE (FP) PO PRN (17:43)
[2017-11-19] MEDS ORDERED: chlordiazePOXIDE HCL 25 MG CAPSULE PO PRN (17:43)
[2017-11-19] MEDS ORDERED: MAGNESIUM CITRATE 300 ML BOTTLE PO PRN (17:43)
[2017-11-19] MEDS ORDERED: NICOTINE POLACRILEX 2 MG GUM BC PRN (17:43)
[2017-11-19] MEDS ORDERED: MENTHOL/PHENOL 1 EACH UD MM PRN (17:43)
[2017-11-19] MEDS ORDERED: MAGNESIUM HYDROX 2400MG/30ML ORAL SUSPENSION 30 ML CUP PO PRN (17:43)
[2017-11-19] MEDS ORDERED: IBUPROFEN 400 MG TABLET (FP) PO PRN (17:43)
[2017-11-19] MEDS ORDERED: chlordiazePOXIDE HCL 25 MG CAPSULE PO ONE (18:00)
[2017-11-19] MEDS ORDERED: MELATONIN 5 MG TABLETS PO PRN (22:00)
[2017-11-19] MEDS: chlordiazePOXIDE HCL 25 MG CAPSULE PO SCH (22:41)
[2017-11-19] MEDS: THIAMINE HCL 100 MG TABLET (FP) PO SCH (22:41)
[2017-11-20] MEDS: chlordiazePOXIDE HCL 25 MG CAPSULE PO SCH ×4 (06:20→22:04)
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
[2017-11-20 10:11] LABS: CHLORIDE 107 mmol/L (98-107); HEMATOCRIT 41.8 % (35.4-49); HEMOGLOBIN 14.6 GM/dL (11.7-16.9); MCH 31.6 pg (25.7-33.7); MCHC 34.9 g/dl (32.0-35.9); MEAN CELL VOLUME 90.7 fl (80-96); MEAN PLT VOLUME 8.6 fl (7.5-11.1); PLATELET COUNT 177 K/MM3 (134-434); POTASSIUM 4.5 mmol/L (3.5-5.1); RBC 4.61 M/mm3 (4.00-5.60); RDW 13.7 % (11.9-15.9); SODIUM 142 mmol/L (136-145); WHITE BLOOD COUNT 4.3 K/mm3 (4.0-10.0)
[2017-11-20] MEDS: NICOTINE 14 MG/24 HOURS TOPICAL PATCH TD SCH (10:26)
[2017-11-20] MEDS: PRENATAL VITAMINS W/ FOLIC ACID TABLET (FP) PO SCH (10:26)
[2017-11-20 10:28] LABS: ALBUMIN 3.3 g/dl (3.4-5.0); ALK PHOS 70 U/L (45-117); ANION GAP 7 (8-16); BILIRUBIN,TOTAL 0.6 mg/dL (0.2-1.0); BLOOD UREA NITROGEN 13 mg/dL (7-18); CALCIUM 9.2 mg/dL (8.5-10.1); CO2 28 mmol/L (21-32); CREATININE 1.2 mg/dL (0.7-1.3); GLUCOSE,RANDOM 148 mg/dL (74-106); SGOT/AST 24 U/L (15-37); SGPT/ALT 20 U/L (12-78); TOT PROT 6.9 g/dl (6.4-8.2)
--- NOTE | 2017-11-20 10:47 | EKG ---
Test Reason : Blood Pressure : / mmHG Vent. Rate : 056 BPM Atrial Rate : 056 BPM P-R Int : 166 ms QRS Dur : 082 ms QT Int : 454 ms P-R-T Axes : 070 008 024 degrees QTc Int : 438 ms SINUS BRADYCARDIA OTHERWISE NORMAL ECG WHEN COMPARED WITH ECG OF 13-OCT-2017 12:59, NO SIGNIFICANT CHANGE WAS FOUND Confirmed by JAMIE SULLIVAN MD ([id number]) on 11/20/2017 10:46:45 AM Referred By: Confirmed By:JAMIE SULLIVAN MD
--- NOTE | 2017-11-20 11:14 | PN ---
S CIWA - CIWA Score Nausea/Vomitin Muscle Tremors: 3 Anxiety: 3 Agitation: 2 Paroxysmal Sweats: 1-Minimal Palms Moist Orientation: 0-Oriented Tacttile Disturbances: 1-Very Mild Itch/Numbness Auditory Disturbances: 1-Very Mild Visual Disturbances: 0-None Headache: 2-Mild CIWA-Ar Total Score: 16 BHS Progress Note (SOAP) Subjective: alert,irritable,anxious,interrupted sleep,tremor, Objective: 11/20/17 11:10 Vital Signs Temperature 97.2 F L 11/20/17 09:18 Pulse Rate 53 L 11/20/17 09:18 Respiratory Rate 18 11/20/17 09:18 Blood Pressure 114/68 11/20/17 09:18 O2 Sat by Pulse Oximetry (%) ekg sinus bradycardia 56/min qt/qtc 454/438 no chest pain,o sob,no dizziness Laboratory Last Values WBC 4.3 K/mm3 (4.0-10.0) 11/20/17 07:30 RBC 4.61 M/mm3 (4.00-5.60) 11/20/17 07:30 Hgb 14.6 GM/dL (11.7-16.9) 11/20/17 07:30 Hct 41.8 % (35.4-49) 11/20/17 07:30 MCV 90.7 fl (80-96) 11/20/17 07:30 MCH 31.6 pg (25.7-33.7) 11/20/17 07:30 MCHC 34.9 g/dl (32.0-35.9) 11/20/17 07:30 RDW 13.7 % (11.9-15.9) 11/20/17 07:30 Plt Count 177 K/MM3 (134-434) D 11/20/17 07:30 MPV 8.6 fl (7.5-11.1) 11/20/17 07:30 Sodium 142 mmol/L (136-145) 11/20/17 07:30 Potassium 4.5 mmol/L (3.5-5.1) 11/20/17 07:30 Chloride 107 mmol/L (98-107) 11/20/17 07:30 Carbon Dioxide 28 mmol/L (21-32) 11/20/17 07:30 Anion Gap 7 (8-16) L 11/20/17 07:30 BUN 13 mg/dL (7-18) 11/20/17 07:30 Creatinine 1.2 mg/dL (0.7-1.3) 11/20/17 07:30 Creat Clearance w eGFR > 60 (>60) 11/20/17 07:30 Random Glucose 148 mg/dL (74-106) H D 11/20/17 07:30 Calcium 9.2 mg/dL (8.5-10.1) 11/20/17 07:30 Total Bilirubin 0.6 mg/dL (0.2-1.0) 11/20/17 07:30 AST 24 U/L (15-37) 11/20/17 07:30 ALT 20 U/L (12-78) 11/20/17 07:30 Alkaline Phosphatase 70 U/L (45-117) 11/20/17 07:30 Total Protein 6.9 g/dl (6.4-8.2) 11/20/17 07:30 Albumin 3.3 g/dl (3.4-5.0) L 11/20/17 07:30 Assessment: 11/20/17 11:13 withdrawal symptom 11/20/17 11:13 continue detox,bgm monitoring,fasting glucose in am
[2017-11-20 18:18] LABS: URINE APPEARANCE TURBID; URINE BILIRUBIN NEGATIVE (<2.0 mg/dL); URINE COLOR AMBER; URINE GLUCOSE (UA) NEGATIVE (NEGATIVE); URINE KETONE TRACE (NEGATIVE); URINE LEUK ESTERASE NEGATIVE (NEGATIVE); URINE NITRITE NEGATIVE (NEGATIVE); URINE PROTEIN NEGATIVE (NEGATIVE); URINE UROBILINOGEN NEGATIVE mg/dL (0.2-1.0)
[2017-11-20] MEDS: traZODone HCL 100 MG TABLET (FP) PO SCH (22:03)
[2017-11-20] MEDS: THIAMINE HCL 100 MG TABLET (FP) PO SCH (22:03)
[2017-11-21] MEDS: chlordiazePOXIDE HCL 25 MG CAPSULE PO SCH ×3 (05:31→18:47)
--- NOTE | 2017-11-21 10:20 | PN ---
S CIWA - CIWA Score Nausea/Vomitin Muscle Tremors: 3 Anxiety: 2 Agitation: 2 Paroxysmal Sweats: 1-Minimal Palms Moist Orientation: 0-Oriented Tacttile Disturbances: 1-Very Mild Itch/Numbness Auditory Disturbances: 1-Very Mild Visual Disturbances: 0-None Headache: 2-Mild CIWA-Ar Total Score: 15 BHS Progress Note (SOAP) Subjective: alert,irritable,anxious,interrupted sleep,pain in the body Objective: 11/21/17 10:16 Vital Signs Temperature 97.5 F L 11/21/17 09:14 Pulse Rate 57 L 11/21/17 09:14 Respiratory Rate 18 11/21/17 09:14 Blood Pressure 114/75 11/21/17 09:14 O2 Sat by Pulse Oximetry (%) 11/21/17 10:17 bgm 119 fasting glucose pending Assessment: 11/21/17 10:17 withdrawal symptom Plan: continue detox,bgm monitoring
[2017-11-21] MEDS: NICOTINE 14 MG/24 HOURS TOPICAL PATCH TD SCH (10:35)
[2017-11-21] MEDS: PRENATAL VITAMINS W/ FOLIC ACID TABLET (FP) PO SCH (10:35)
[2017-11-21] MEDS: THIAMINE HCL 100 MG TABLET (FP) PO SCH (22:36)
[2017-11-21] MEDS: traZODone HCL 100 MG TABLET (FP) PO SCH (22:36)
[2017-11-21] MEDS: chlordiazePOXIDE 5 MG CAPSULE PO SCH (22:36)
[2017-11-22] MEDS: chlordiazePOXIDE 5 MG CAPSULE PO SCH ×3 (05:50→18:03)
--- NOTE | 2017-11-22 10:48 | PN ---
BHS Progress Note (SOAP) Subjective: alert,interrupted sleep,pain in the body Objective: 11/22/17 10:47 Vital Signs Temperature 98.2 F 11/22/17 09:44 Pulse Rate 73 11/22/17 09:44 Respiratory Rate 20 11/22/17 09:44 Blood Pressure 101/67 11/22/17 09:44 O2 Sat by Pulse Oximetry (%) Assessment: 11/22/17 10:47 withdrawal symptom Plan: continue detox,discharge in am
[2017-11-22] MEDS: PRENATAL VITAMINS W/ FOLIC ACID TABLET (FP) PO SCH (11:06)
[2017-11-22] MEDS: NICOTINE 14 MG/24 HOURS TOPICAL PATCH TD SCH (11:07)
--- NOTE | 2017-11-22 17:02 | PN ---
[facility]IN Progress Note Note: Called received from ANNA Mendoza patient with BGM 430 6 units stat of novolog ordered increase PO fluids continue to monitor
[2017-11-22] MEDS ORDERED: INSULIN (NOVOLOG) ASPART 100 UNITS/ML 10ML VIAL SQ ONE (17:30)
[2017-11-22] MEDS: traZODone HCL 100 MG TABLET (FP) PO SCH (22:08)
[2017-11-22] MEDS: THIAMINE HCL 100 MG TABLET (FP) PO SCH (22:08)
[2017-11-22] MEDS: chlordiazePOXIDE HCL 10 MG CAPSULE PO SCH (22:09)
[2017-11-23] MEDS: chlordiazePOXIDE HCL 10 MG CAPSULE PO SCH ×2 (06:30→10:30)
[2017-11-23 07:27] VITALS: PULSE 56
[2017-11-23 09:55] VITALS: BP 103/64; TEMP 97.9
--- NOTE | 2017-11-23 10:01 | PN ---
S Progress Note (SOAP) Subjective: alert,no complaint Objective: 11/23/17 10:00 Vital Signs Temperature 97.9 F 11/23/17 09:54 Pulse Rate 56 L 11/23/17 09:54 Respiratory Rate 16 11/23/17 09:54 Blood Pressure 103/64 11/23/17 09:54 O2 Sat by Pulse Oximetry (%) Assessment: 11/23/17 10:00 detox completed,no withdrawal symptom Plan: discharge today,follow up with after care program as arrangement
--- NOTE | 2017-11-23 10:07 | DS ---
[facility] Detox Discharge Summary Admission Date: 11/19/17 Discharge Date: 11/23/17 - History Present History: Alcohol Dependence, Cocaine Dependence Additional Comments: follow up with after care program as arrangement,advise diet modification, compliance issue with medication,patient will follow up with primary care provider at [facility] for medical problem and follow up Pertinent Past History: nicotine dependence weight loss aids glaucoma history of enucleation of left eye - Physical Exam Results Vital Signs: Vital Signs Temperature 97.9 F 11/23/17 09:54 Pulse Rate 56 L 11/23/17 09:54 Respiratory Rate 16 11/23/17 09:54 Blood Pressure 103/64 11/23/17 09:54 O2 Sat by Pulse Oximetry (%) Pertinent Admission Physical Exam Findings: withdrawal signs and symptom Vital Signs Temperature 97.9 F 11/23/17 09:54 Pulse Rate 56 L 11/23/17 09:54 Respiratory Rate 16 11/23/17 09:54 Blood Pressure 103/64 11/23/17 09:54 O2 Sat by Pulse Oximetry (%) Laboratory Last Values WBC 4.3 K/mm3 (4.0-10.0) 11/20/17 07:30 RBC 4.61 M/mm3 (4.00-5.60) 11/20/17 07:30 Hgb 14.6 GM/dL (11.7-16.9) 11/20/17 07:30 Hct 41.8 % (35.4-49) 11/20/17 07:30 MCV 90.7 fl (80-96) 11/20/17 07:30 MCH 31.6 pg (25.7-33.7) 11/20/17 07:30 MCHC 34.9 g/dl (32.0-35.9) 11/20/17 07:30 RDW 13.7 % (11.9-15.9) 11/20/17 07:30 Plt Count 177 K/MM3 (134-434) D 11/20/17 07:30 MPV 8.6 fl (7.5-11.1) 11/20/17 07:30 Sodium 142 mmol/L (136-145) 11/20/17 07:30 Potassium 4.5 mmol/L (3.5-5.1) 11/20/17 07:30 Chloride 107 mmol/L (98-107) 11/20/17 07:30 Carbon Dioxide 28 mmol/L (21-32) 11/20/17 07:30 Anion Gap 7 (8-16) L 11/20/17 07:30 BUN 13 mg/dL (7-18) 11/20/17 07:30 Creatinine 1.2 mg/dL (0.7-1.3) 11/20/17 07:30 Creat Clearance w eGFR > 60 (>60) 11/20/17 07:30 POC Glucometer 104 UNITS (80-120) 11/23/17 06:40 Random Glucose 148 mg/dL (74-106) H D 11/20/17 07:30 Fasting Glucose 108 mg/dL (70-105) H 11/21/17 07:30 Calcium 9.2 mg/dL (8.5-10.1) 11/20/17 07:30 Total Bilirubin 0.6 mg/dL (0.2-1.0) 11/20/17 07:30 AST 24 U/L (15-37) 11/20/17 07:30 ALT 20 U/L (12-78) 11/20/17 07:30 Alkaline Phosphatase 70 U/L (45-117) 11/20/17 07:30 Total Protein 6.9 g/dl (6.4-8.2) 11/20/17 07:30 Albumin 3.3 g/dl (3.4-5.0) L 11/20/17 07:30 Urine Color [place] 11/20/17 17:00 Urine Appearance Turbid 11/20/17 17:00 Urine pH 5.0 (5.0-8.0) 11/20/17 17:00 Ur Specific [place] 1.025 (1.001-1.035) 11/20/17 17:00 Urine Protein Negative (NEGATIVE) 11/20/17 17:00 Urine Glucose (UA) Negative (NEGATIVE) 11/20/17 17:00 Urine Ketones Trace (NEGATIVE) H 11/20/17 17:00 Urine Blood Negative (NEGATIVE) 11/20/17 17:00 Urine Nitrite Negative (NEGATIVE) 11/20/17 17:00 Urine Bilirubin Negative (<2.0 mg/dL) 11/20/17 17:00 Urine Urobilinogen Negative mg/dL (0.2-1.0) 11/20/17 17:00 Ur Leukocyte Esterase Negative (NEGATIVE) 11/20/17 17:00 RPR Titer Nonreactive (NONREACTIVE) 11/20/17 07:30 - Treatment Hospital Course: Detox Protocol Followed, Detoxed Safely, Responded well, Discharged Condition Good Patient has Accepted a Rehab Referral to: declined - Medication Discharge Medications: Ambulatory Orders Trazodone HCl 100 mg PO HS #30 tablet 11/20/17 - Diagnosis (1) Alcohol dependence with uncomplicated withdrawal Current Visit: Yes Status: Acute (2) Cocaine dependence, uncomplicated Current Visit: Yes Status: Acute (3) Nicotine dependence Current Visit: Yes Status: Acute Qualifiers: Nicotine product type: cigarettes Substance use status: in withdrawal Qualified Code(s): F17.213 - Nicotine dependence, cigarettes, with withdrawal (4) Acquired immune deficiency syndrome (AIDS) Current Visit: Yes Status: Chronic (5) Glaucoma Current Visit: Yes Status: Chronic Qualifiers: Glaucoma type: other Laterality: right Qualified Code(s): H40.89 - Other specified glaucoma (6) History of enucleation of left eyeball Current Visit: Yes Status: Chronic - AMA Did Patient Leave Against Medical Advice: No
[2017-11-23] MEDS: PRENATAL VITAMINS W/ FOLIC ACID TABLET (FP) PO SCH (10:19)
[2017-11-23] MEDS: NICOTINE 14 MG/24 HOURS TOPICAL PATCH TD SCH (10:19)
== END 2017-11-23 11:13 | disposition home or self-care (01) | DRG 775 ==
LOC: YASAS 12:57 → Y6N 17:16
PROVIDERS: ADMIT Surgery; ATTEND Surgery
PROC: HZ2ZZZZ Detoxification Services for Substance Abuse Treatment (ICD-10-PCS; principal; 2017-11-19)
DX: F10.230 Alcohol dependence with withdrawal, uncomplicated (principal); F31.81 Bipolar II disorder; F19.24 Other psychoactive substance dependence with psychoactive substance-induced mood disorder; B20 Human immunodeficiency virus [HIV] disease; H40.89 Other specified glaucoma; R00.1 Bradycardia, unspecified; R19.7 Diarrhea, unspecified; Z91.013 Allergy to seafood; Z90.01 Acquired absence of eye; Z87.898 Personal history of other specified conditions; Z91.048 Other nonmedicinal substance allergy status
CPT/HCPCS: 36415; 80053; 81003; 82947; 82962; 85027; 86593; 93005; 93010

== ENCOUNTER 2018-02-17 10:46 | Inpatient (IN) | payer OTHER ==
[2018-02-17 12:33] VITALS: BMI 25.1
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
[2018-02-17] MEDS ORDERED: MAGNESIUM HYDROX 2400MG/30ML ORAL SUSPENSION 30 ML CUP PO PRN (14:45)
[2018-02-17] MEDS ORDERED: guaiFENesin/D-METHORPHAN HB 10 ML UNIT-DOSE CUPS PO PRN (14:45)
[2018-02-17] MEDS ORDERED: ACETAMINOPHEN 325 MG TABLET (FP) PO PRN (14:45)
[2018-02-17] MEDS ORDERED: LOPERAMIDE HCL 2 MG CAPSULE PO PRN (14:45)
[2018-02-17] MEDS ORDERED: P-EPHED 60MG/TRIPROLIDI 2.5MG TABLET PO PRN (14:45)
[2018-02-17] MEDS ORDERED: MAG HYDROX/AL HYDROX/SIMETH 30 ML UNIT-DOSE CUP PO PRN (14:45)
[2018-02-17] MEDS ORDERED: MENTHOL/PHENOL 1 EACH UD MM PRN (14:45)
[2018-02-17] MEDS ORDERED: NICOTINE POLACRILEX 2 MG GUM BUC PRN (14:45)
[2018-02-17] MEDS ORDERED: MAGNESIUM CITRATE 300 ML BOTTLE PO PRN (14:45)
[2018-02-17] MEDS ORDERED: chlordiazePOXIDE HCL 25 MG CAPSULE PO PRN (14:45)
[2018-02-17] MEDS ORDERED: IBUPROFEN 400 MG TABLET (FP) PO PRN (14:45)
[2018-02-17] MEDS: chlordiazePOXIDE HCL 25 MG CAPSULE PO SCH ×2 (17:52→22:23)
[2018-02-17 20:41] LABS: URINE APPEARANCE CLEAR; URINE BILIRUBIN NEGATIVE (<2.0 mg/dL); URINE COLOR YELLOW; URINE GLUCOSE (UA) NEGATIVE (NEGATIVE); URINE KETONE NEGATIVE (NEGATIVE); URINE LEUK ESTERASE NEGATIVE (NEGATIVE); URINE NITRITE NEGATIVE (NEGATIVE); URINE PROTEIN NEGATIVE (NEGATIVE); URINE UROBILINOGEN 4.0 E.U/dl mg/dL (0.2-1.0)
[2018-02-17] MEDS: THIAMINE HCL 100 MG TABLET (FP) PO SCH (22:24)
[2018-02-17] MEDS: MELATONIN 5 MG TABLETS PO PRN (22:24)
[2018-02-18] MEDS: chlordiazePOXIDE HCL 25 MG CAPSULE PO SCH ×4 (05:27→22:07)
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
[2018-02-18 10:12] LABS: HEMOGLOBIN 15.3 GM/dL (11.7-16.9); MCH 29.8 pg (25.7-33.7); MCHC 32.6 g/dl (32.0-35.9); MEAN CELL VOLUME 91.6 fl (80-96); MEAN PLT VOLUME 11.1 fl (7.5-11.1); PLATELET COUNT 166 K/MM3 (134-434); RBC 5.13 M/mm3 (4.00-5.60); RDW 13.8 % (11.9-15.9); WHITE BLOOD COUNT 3.5 K/mm3 (4.0-10.0)
[2018-02-18] MEDS: PRENATAL VITAMINS W/ FOLIC ACID TABLET (FP) PO SCH (10:46)
[2018-02-18 10:47] LABS: ALBUMIN 3.7 g/dl (3.4-5.0); ALK PHOS 92 U/L (45-117); ANION GAP 10 MMOL/L (8-16); BLOOD UREA NITROGEN 11 mg/dL (7-18); CALCIUM 8.9 mg/dL (8.5-10.1); CHLORIDE 109 mmol/L (98-107); CO2 24 mmol/L (21-32); CREATININE 1.2 mg/dL (0.55-1.3); GLUCOSE,RANDOM 72 mg/dL (74-106); SGOT/AST 20 U/L (15-37); SGPT/ALT 16 U/L (13-61); SODIUM 143 mmol/L (136-145); TOT PROT 7.7 g/dl (6.4-8.2)
[2018-02-18] MEDS: NICOTINE 14 MG/24 HOURS TOPICAL PATCH TD SCH (10:48)
--- NOTE | 2018-02-18 12:48 | PN ---
S CIWA - CIWA Score Nausea/Vomitin Muscle Tremors: 4-Moderate,w/Arms Extend Anxiety: 4-Mod. Anxious/Guarded Agitation: 3 Paroxysmal Sweats: 3 Orientation: 0-Oriented Tacttile Disturbances: 0-None Auditory Disturbances: 0-None Visual Disturbances: 0-None Headache: 1-Very Mild CIWA-Ar Total Score: 17 BHS Progress Note (SOAP) Subjective: Anxious, agitation Objective: 02/18/18 12:44 Last Vital Signs Temp Pulse Resp BP Pulse Ox 96.8 F L 63 16 102/64 02/18/18 09:08 02/18/18 09:08 02/18/18 09:08 02/18/18 09:08 Laboratory Tests 02/17/18 02/18/18 02/18/18 19:30 05:45 05:45 WBC 3.5 L RBC 5.13 Hgb 15.3 Hct 47.0 MCV 91.6 MCH 29.8 MCHC 32.6 RDW 13.8 Plt Count 166 MPV 11.1 D Sodium 143 Potassium 5.0 Chloride 109 H Carbon Dioxide 24 Anion Gap 10 BUN 11 Creatinine 1.2 Creat Clearance w eGFR > 60 Random Glucose 72 L Calcium 8.9 Total Bilirubin 1.0 AST 20 ALT 16 Alkaline Phosphatase 92 Total Protein 7.7 Albumin 3.7 Urine Color Yellow Urine Appearance Clear Urine pH 6.0 Ur Specific [place] 1.023 Urine Protein Negative Urine Glucose (UA) Negative Urine Ketones Negative Urine Blood Negative Urine Nitrite Negative Urine Bilirubin Negative Urine Urobilinogen 4.0 e.u/dl Ur Leukocyte Esterase Negative RPR Titer 02/18/18 05:45 WBC RBC Hgb Hct MCV MCH MCHC RDW Plt Count MPV Sodium Potassium Chloride Carbon Dioxide Anion Gap BUN Creatinine Creat Clearance w eGFR Random Glucose Calcium Total Bilirubin AST ALT Alkaline Phosphatase Total Protein Albumin Urine Color Urine Appearance Urine pH Ur Specific [place] Urine Protein Urine Glucose (UA) Urine Ketones Urine Blood Urine Nitrite Urine Bilirubin Urine Urobilinogen Ur Leukocyte Esterase RPR Titer Nonreactive Labs reviewed Assessment: 02/18/18 12:45 Withdrawal symptoms Plan: Continue detox Encouraged PO water intake
--- NOTE | 2018-02-18 16:07 | EKG ---
Test Reason : Blood Pressure : / mmHG Vent. Rate : 053 BPM Atrial Rate : 053 BPM P-R Int : 174 ms QRS Dur : 084 ms QT Int : 456 ms P-R-T Axes : 063 017 037 degrees QTc Int : 427 ms SINUS BRADYCARDIA OTHERWISE NORMAL ECG WHEN COMPARED WITH ECG OF 19-NOV-2017 18:41, NO SIGNIFICANT CHANGE WAS FOUND Confirmed by MD JUSTINO, MARGARET ([id number]) on 02/18/2018 4:07:20 PM Referred By: Confirmed By:MARGARET BADILLO MD
[2018-02-18] MEDS: MELATONIN 5 MG TABLETS PO PRN (22:07)
[2018-02-18] MEDS: THIAMINE HCL 100 MG TABLET (FP) PO SCH (22:07)
[2018-02-19] MEDS: chlordiazePOXIDE HCL 25 MG CAPSULE PO SCH ×2 (05:31→10:24)
[2018-02-19] MEDS: PRENATAL VITAMINS W/ FOLIC ACID TABLET (FP) PO SCH (10:24)
[2018-02-19] MEDS: NICOTINE 14 MG/24 HOURS TOPICAL PATCH TD SCH (10:24)
--- NOTE | 2018-02-19 14:15 | PN ---
S CIWA - CIWA Score Nausea/Vomitin Muscle Tremors: 3 Anxiety: 3 Agitation: 3 Paroxysmal Sweats: 3 Orientation: 0-Oriented Tacttile Disturbances: 0-None Auditory Disturbances: 0-None Visual Disturbances: 0-None Headache: 0-None Present CIWA-Ar Total Score: 14 BHS Progress Note (SOAP) Subjective: Sweating, interrupted sleep, tremor Objective: 02/19/18 14:14 Last Vital Signs Temp Pulse Resp BP Pulse Ox 96.8 F L 72 18 116/73 02/19/18 13:39 02/19/18 13:39 02/19/18 13:39 02/19/18 13:39 Laboratory Tests 02/17/18 02/18/18 02/18/18 19:30 05:45 05:45 WBC 3.5 L RBC 5.13 Hgb 15.3 Hct 47.0 MCV 91.6 MCH 29.8 MCHC 32.6 RDW 13.8 Plt Count 166 MPV 11.1 D Sodium 143 Potassium 5.0 Chloride 109 H Carbon Dioxide 24 Anion Gap 10 BUN 11 Creatinine 1.2 Creat Clearance w eGFR > 60 Random Glucose 72 L Calcium 8.9 Total Bilirubin 1.0 AST 20 ALT 16 Alkaline Phosphatase 92 Total Protein 7.7 Albumin 3.7 Urine Color Yellow Urine Appearance Clear Urine pH 6.0 Ur Specific [place] 1.023 Urine Protein Negative Urine Glucose (UA) Negative Urine Ketones Negative Urine Blood Negative Urine Nitrite Negative Urine Bilirubin Negative Urine Urobilinogen 4.0 e.u/dl Ur Leukocyte Esterase Negative RPR Titer 02/18/18 05:45 WBC RBC Hgb Hct MCV MCH MCHC RDW Plt Count MPV Sodium Potassium Chloride Carbon Dioxide Anion Gap BUN Creatinine Creat Clearance w eGFR Random Glucose Calcium Total Bilirubin AST ALT Alkaline Phosphatase Total Protein Albumin Urine Color Urine Appearance Urine pH Ur Specific [place] Urine Protein Urine Glucose (UA) Urine Ketones Urine Blood Urine Nitrite Urine Bilirubin Urine Urobilinogen Ur Leukocyte Esterase RPR Titer Nonreactive Labs reviewed Assessment: 02/19/18 14:15 Withdrawal symptoms Plan: Continue detox Encouraged PO water intake
[2018-02-19] MEDS: chlordiazePOXIDE 5 MG CAPSULE PO SCH ×2 (17:39→22:12)
[2018-02-19] MEDS: THIAMINE HCL 100 MG TABLET (FP) PO SCH (22:11)
[2018-02-19] MEDS: MELATONIN 5 MG TABLETS PO PRN (22:14)
[2018-02-20] MEDS: chlordiazePOXIDE 5 MG CAPSULE PO SCH ×2 (06:11→10:30)
[2018-02-20] MEDS: NICOTINE 14 MG/24 HOURS TOPICAL PATCH TD SCH (10:29)
[2018-02-20] MEDS: PRENATAL VITAMINS W/ FOLIC ACID TABLET (FP) PO SCH (10:30)
--- NOTE | 2018-02-20 12:24 | PN ---
BHS Progress Note (SOAP) Subjective: Interrupted sleep Objective: 02/20/18 12:22 Last Vital Signs Temp Pulse Resp BP Pulse Ox 96.7 F L 64 18 123/75 02/20/18 09:28 02/20/18 09:28 02/20/18 09:28 02/20/18 09:28 Laboratory Tests 02/17/18 02/18/18 02/18/18 19:30 05:45 05:45 WBC 3.5 L RBC 5.13 Hgb 15.3 Hct 47.0 MCV 91.6 MCH 29.8 MCHC 32.6 RDW 13.8 Plt Count 166 MPV 11.1 D Sodium 143 Potassium 5.0 Chloride 109 H Carbon Dioxide 24 Anion Gap 10 BUN 11 Creatinine 1.2 Creat Clearance w eGFR > 60 Random Glucose 72 L Calcium 8.9 Total Bilirubin 1.0 AST 20 ALT 16 Alkaline Phosphatase 92 Total Protein 7.7 Albumin 3.7 Urine Color Yellow Urine Appearance Clear Urine pH 6.0 Ur Specific [place] 1.023 Urine Protein Negative Urine Glucose (UA) Negative Urine Ketones Negative Urine Blood Negative Urine Nitrite Negative Urine Bilirubin Negative Urine Urobilinogen 4.0 e.u/dl Ur Leukocyte Esterase Negative RPR Titer 02/18/18 05:45 WBC RBC Hgb Hct MCV MCH MCHC RDW Plt Count MPV Sodium Potassium Chloride Carbon Dioxide Anion Gap BUN Creatinine Creat Clearance w eGFR Random Glucose Calcium Total Bilirubin AST ALT Alkaline Phosphatase Total Protein Albumin Urine Color Urine Appearance Urine pH Ur Specific [place] Urine Protein Urine Glucose (UA) Urine Ketones Urine Blood Urine Nitrite Urine Bilirubin Urine Urobilinogen Ur Leukocyte Esterase RPR Titer Nonreactive Labs reviewed Assessment: 02/20/18 12:24 Withdrawal symptoms Plan: Continue detox Encouraged PO water intake
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
[2018-02-20] MEDS: chlordiazePOXIDE HCL 10 MG CAPSULE PO SCH ×2 (17:34→22:05)
[2018-02-20] MEDS ORDERED: traZODone HCL 50 MG TABLET (FP) PO SCH (22:00)
[2018-02-20] MEDS: THIAMINE HCL 100 MG TABLET (FP) PO SCH (22:05)
[2018-02-21 06:31] VITALS: BP 105/69; PULSE 55; TEMP 96.8
[2018-02-21] MEDS: chlordiazePOXIDE HCL 10 MG CAPSULE PO SCH ×2 (06:31→06:46)
--- NOTE | 2018-02-21 15:26 | DS ---
[facility] Detox Discharge Summary Admission Date: 02/17/18 Discharge Date: 02/21/18 - History Present History: Alcohol Dependence, Cocaine Dependence Pertinent Past History: Alcohol dependence Cocaine dependence Nicotine dependence HIV Hepatitis C - Physical Exam Results Vital Signs: Vital Signs Temperature 96.8 F L 02/21/18 06:31 Pulse Rate 55 L 02/21/18 06:31 Respiratory Rate 18 02/21/18 06:31 Blood Pressure 105/69 02/21/18 06:31 O2 Sat by Pulse Oximetry (%) Pertinent Admission Physical Exam Findings: Withdrawal symptoms Laboratory Tests 02/17/18 02/18/18 02/18/18 19:30 05:45 05:45 WBC 3.5 L RBC 5.13 Hgb 15.3 Hct 47.0 MCV 91.6 MCH 29.8 MCHC 32.6 RDW 13.8 Plt Count 166 MPV 11.1 D Sodium 143 Potassium 5.0 Chloride 109 H Carbon Dioxide 24 Anion Gap 10 BUN 11 Creatinine 1.2 Creat Clearance w eGFR > 60 Random Glucose 72 L Calcium 8.9 Total Bilirubin 1.0 AST 20 ALT 16 Alkaline Phosphatase 92 Total Protein 7.7 Albumin 3.7 Urine Color Yellow Urine Appearance Clear Urine pH 6.0 Ur Specific [place] 1.023 Urine Protein Negative Urine Glucose (UA) Negative Urine Ketones Negative Urine Blood Negative Urine Nitrite Negative Urine Bilirubin Negative Urine Urobilinogen 4.0 e.u/dl Ur Leukocyte Esterase Negative RPR Titer 02/18/18 05:45 WBC RBC Hgb Hct MCV MCH MCHC RDW Plt Count MPV Sodium Potassium Chloride Carbon Dioxide Anion Gap BUN Creatinine Creat Clearance w eGFR Random Glucose Calcium Total Bilirubin AST ALT Alkaline Phosphatase Total Protein Albumin Urine Color Urine Appearance Urine pH Ur Specific [place] Urine Protein Urine Glucose (UA) Urine Ketones Urine Blood Urine Nitrite Urine Bilirubin Urine Urobilinogen Ur Leukocyte Esterase RPR Titer Nonreactive Labs reviewed - Treatment Hospital Course: Detox Protocol Followed, Detoxed Safely, Responded well, Discharged Condition Good - Medication Discharge Medications: Ambulatory Orders traZODone HCL [Trazodone HCl] 100 mg PO HS #30 tablet 11/20/17 - Diagnosis (1) Alcohol dependence with uncomplicated withdrawal Status: Acute (2) Cocaine dependence, uncomplicated Status: Chronic (3) Nicotine dependence Status: Chronic Qualifiers: Nicotine product type: cigarettes Substance use status: in withdrawal Qualified Code(s): F17.213 - Nicotine dependence, cigarettes, with withdrawal (4) Substance induced mood disorder Status: Acute (5) Acquired immune deficiency syndrome (AIDS) Status: Chronic (6) HEP-C Status: Chronic - AMA Did Patient Leave Against Medical Advice: No (F/U with your PCP within 1-2 weeks )
== END 2018-02-21 09:29 | disposition home or self-care (01) | DRG 774 ==
LOC: YASAS 10:46 → Y3N 15:14
PROC: HZ2ZZZZ Detoxification Services for Substance Abuse Treatment (ICD-10-PCS; principal; 2018-02-17)
DX: F10.230 Alcohol dependence with withdrawal, uncomplicated (principal); F14.20 Cocaine dependence, uncomplicated; F17.213 Nicotine dependence, cigarettes, with withdrawal; F19.24 Other psychoactive substance dependence with psychoactive substance-induced mood disorder; F19.282 Other psychoactive substance dependence with psychoactive substance-induced sleep disorder; F31.9 Bipolar disorder, unspecified; F32.9 Major depressive disorder, single episode, unspecified; B20 Human immunodeficiency virus [HIV] disease; R19.8 Other specified symptoms and signs involving the digestive system and abdomen; Z90.01 Acquired absence of eye
CPT/HCPCS: 36415; 80053; 81003; 85027; 86593; 93005; 93010

== ENCOUNTER 2018-04-04 08:36 | Inpatient (IN) | payer OTHER ==
[2018-04-04 08:45] VITALS: BMI 26.2
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
[2018-04-04] MEDS ORDERED: guaiFENesin/D-METHORPHAN HB 10 ML UNIT-DOSE CUPS PO PRN (09:18)
[2018-04-04] MEDS ORDERED: IBUPROFEN 400 MG TABLET (FP) PO PRN (09:18)
[2018-04-04] MEDS ORDERED: chlordiazePOXIDE HCL 25 MG CAPSULE PO PRN (09:18)
[2018-04-04] MEDS ORDERED: P-EPHED 60MG/TRIPROLIDI 2.5MG TABLET PO PRN (09:18)
[2018-04-04] MEDS ORDERED: MAGNESIUM HYDROX 2400MG/30ML ORAL SUSPENSION 30 ML CUP PO PRN (09:18)
[2018-04-04] MEDS ORDERED: MAG HYDROX/AL HYDROX/SIMETH 30 ML UNIT-DOSE CUP PO PRN (09:18)
[2018-04-04] MEDS ORDERED: MAGNESIUM CITRATE 300 ML BOTTLE PO PRN (09:18)
[2018-04-04] MEDS ORDERED: ACETAMINOPHEN 325 MG TABLET (FP) PO PRN (09:18)
[2018-04-04] MEDS ORDERED: MENTHOL/PHENOL 1 EACH UD MM PRN (09:18)
[2018-04-04] MEDS: PRENATAL VITAMINS W/ FOLIC ACID TABLET (FP) PO SCH (13:44)
[2018-04-04] MEDS: chlordiazePOXIDE HCL 25 MG CAPSULE PO SCH ×2 (21:14→22:28)
[2018-04-04] MEDS ORDERED: MELATONIN 5 MG TABLETS PO PRN (22:00)
[2018-04-04] MEDS: THIAMINE HCL 100 MG TABLET (FP) PO SCH (22:27)
[2018-04-04] MEDS: traZODone HCL 50 MG TABLET (FP) PO SCH (22:28)
[2018-04-05] MEDS: chlordiazePOXIDE HCL 25 MG CAPSULE PO SCH ×4 (06:33→22:32)
[2018-04-05] MEDS: PRENATAL VITAMINS W/ FOLIC ACID TABLET (FP) PO SCH (10:29)
[2018-04-05 10:47] LABS: MCH 29.6 pg (25.7-33.7); WHITE BLOOD COUNT 3.1 K/mm3 (4.0-10.0)
[2018-04-05 10:53] LABS: HEMATOCRIT 45.3 % (35.4-49); HEMOGLOBIN 14.6 GM/dL (11.7-16.9); MCHC 32.3 g/dl (32.0-35.9); MEAN CELL VOLUME 91.9 fl (80-96); MEAN PLT VOLUME 11.2 fl (7.5-11.1); PLATELET COUNT 148 K/MM3 (134-434); RBC 4.93 M/mm3 (4.00-5.60); RDW 14.5 % (11.9-15.9)
[2018-04-05 10:58] LABS: ALBUMIN 3.7 g/dl (3.4-5.0); ALK PHOS 95 U/L (45-117); ANION GAP 6 MMOL/L (8-16); BILIRUBIN,TOTAL 0.8 mg/dL (0.2-1); BLOOD UREA NITROGEN 19 mg/dL (7-18); CALCIUM 8.8 mg/dL (8.5-10.1); CHLORIDE 106 mmol/L (98-107); CO2 28 mmol/L (21-32); CREATININE 1.2 mg/dL (0.55-1.3); GLUCOSE,RANDOM 82 mg/dL (74-106); SGOT/AST 81 U/L (15-37); SGPT/ALT 54 U/L (13-61); SODIUM 140 mmol/L (136-145); TOT PROT 7.7 g/dl (6.4-8.2)
--- NOTE | 2018-04-05 14:42 | PN ---
BHS CIWA - CIWA Score Nausea/Vomitin-Mild Nausea/No Vomiting Muscle Tremors: 1-None Visible, but [place] Anxiety: 1-Mildly Anxious Agitation: 1-Slight > Activity Paroxysmal Sweats: No Perspiration Orientation: 0-Oriented Tacttile Disturbances: 0-None Auditory Disturbances: 0-None Visual Disturbances: 0-None Headache: 0-None Present CIWA-Ar Total Score: 4 BHS Progress Note (SOAP) Subjective: Pt here for detox from alcohol- says he is feeling fine today on Librium O Vital Signs - 24 hr 04/04/18 04/04/18 04/05/18 18:40 22:14 00:30 Temperature 98.2 F 98.2 F Pulse Rate 83 85 Respiratory 18 18 18 Rate Blood Pressure 142/89 137/84 04/05/18 04/05/18 04/05/18 03:30 06:57 09:48 Temperature 97.9 F Pulse Rate 60 56 L Respiratory 18 18 18 Rate Blood Pressure 136/89 136/75 04/05/18 14:22 Temperature 98.4 F Pulse Rate 64 Respiratory 18 Rate Blood Pressure 140/77 Laboratory Tests 04/05/18 04/05/18 05:30 05:30 WBC 3.1 L RBC 4.93 Hgb 14.6 Hct 45.3 MCV 91.9 MCH 29.6 MCHC 32.3 RDW 14.5 Plt Count 148 MPV 11.2 H Sodium 140 Potassium 5.0 Chloride 106 Carbon Dioxide 28 Anion Gap 6 L BUN 19 H Creatinine 1.2 Creat Clearance w eGFR > 60 Random Glucose 82 Calcium 8.8 Total Bilirubin 0.8 AST 81 H ALT 54 Alkaline Phosphatase 95 Total Protein 7.7 Albumin 3.7 a/p: AUD- continue detox protocol, pt stable
[2018-04-05] MEDS: traZODone HCL 50 MG TABLET (FP) PO SCH (22:32)
[2018-04-05] MEDS: THIAMINE HCL 100 MG TABLET (FP) PO SCH (22:32)
[2018-04-06] MEDS: chlordiazePOXIDE HCL 25 MG CAPSULE PO SCH ×2 (06:10→10:20)
--- NOTE | 2018-04-06 10:00 | PN ---
S CIWA - CIWA Score Nausea/Vomitin-No Nausea/No Vomiting Muscle Tremors: 2 Anxiety: 1-Mildly Anxious Agitation: 1-Slight > Activity Paroxysmal Sweats: 1-Minimal Palms Moist Orientation: 0-Oriented Tacttile Disturbances: 0-None Auditory Disturbances: 0-None Visual Disturbances: 0-None Headache: 1-Very Mild CIWA-Ar Total Score: 6 BHS Progress Note (SOAP) Subjective: feeling ok felt tremor little sweat doing well in alcohol detox Objective: 04/06/18 10:02 Vital Signs Temperature 97.3 F L 04/06/18 04:00 Pulse Rate 53 L 04/06/18 04:00 Respiratory Rate 18 04/06/18 04:00 Blood Pressure 125/65 04/06/18 04:00 O2 Sat by Pulse Oximetry (%) Laboratory Last Values WBC 3.1 K/mm3 (4.0-10.0) L 04/05/18 05:30 RBC 4.93 M/mm3 (4.00-5.60) 04/05/18 05:30 Hgb 14.6 GM/dL (11.7-16.9) 04/05/18 05:30 Hct 45.3 % (35.4-49) 04/05/18 05:30 MCV 91.9 fl (80-96) 04/05/18 05:30 MCH 29.6 pg (25.7-33.7) 04/05/18 05:30 MCHC 32.3 g/dl (32.0-35.9) 04/05/18 05:30 RDW 14.5 % (11.9-15.9) 04/05/18 05:30 Plt Count 148 K/MM3 (134-434) 04/05/18 05:30 MPV 11.2 fl (7.5-11.1) H 04/05/18 05:30 Sodium 140 mmol/L (136-145) 04/05/18 05:30 Potassium 5.0 mmol/L (3.5-5.1) 04/05/18 05:30 Chloride 106 mmol/L (98-107) 04/05/18 05:30 Carbon Dioxide 28 mmol/L (21-32) 04/05/18 05:30 Anion Gap 6 MMOL/L (8-16) L 04/05/18 05:30 BUN 19 mg/dL (7-18) H 04/05/18 05:30 Creatinine 1.2 mg/dL (0.55-1.3) 04/05/18 05:30 Creat Clearance w eGFR > 60 (>60) 04/05/18 05:30 Random Glucose 82 mg/dL (74-106) 04/05/18 05:30 Calcium 8.8 mg/dL (8.5-10.1) 04/05/18 05:30 Total Bilirubin 0.8 mg/dL (0.2-1) 04/05/18 05:30 AST 81 U/L (15-37) H 04/05/18 05:30 ALT 54 U/L (13-61) 04/05/18 05:30 Alkaline Phosphatase 95 U/L (45-117) 04/05/18 05:30 Total Protein 7.7 g/dl (6.4-8.2) 04/05/18 05:30 Albumin 3.7 g/dl (3.4-5.0) 04/05/18 05:30 lab noted Assessment: 04/06/18 10:03 alcohol withdrawal sx HIV Plan: continue alcohol detox discuss the benefits of ART adherence
[2018-04-06] MEDS: PRENATAL VITAMINS W/ FOLIC ACID TABLET (FP) PO SCH (10:19)
[2018-04-06] MEDS: chlordiazePOXIDE 5 MG CAPSULE PO SCH ×2 (22:02→23:22)
[2018-04-06] MEDS: traZODone HCL 50 MG TABLET (FP) PO SCH (23:22)
[2018-04-06] MEDS: THIAMINE HCL 100 MG TABLET (FP) PO SCH (23:22)
[2018-04-07] MEDS: chlordiazePOXIDE 5 MG CAPSULE PO SCH ×2 (06:04→10:28)
[2018-04-07] MEDS: PRENATAL VITAMINS W/ FOLIC ACID TABLET (FP) PO SCH (10:28)
--- NOTE | 2018-04-07 10:45 | PN ---
BHS Progress Note Note: PATIENT CONTINUES WITH DETOX REGIMEN. PATIENT IRRITABLE AND C/O INTERRUPTED SLEEP. Vital Signs Temperature 98.1 F 04/07/18 09:03 Pulse Rate 61 04/07/18 09:03 Respiratory Rate 18 04/07/18 09:03 Blood Pressure 112/70 04/07/18 09:03 O2 Sat by Pulse Oximetry (%) Laboratory Tests 04/05/18 04/05/18 04/05/18 05:30 05:30 05:30 WBC 3.1 L RBC 4.93 Hgb 14.6 Hct 45.3 MCV 91.9 MCH 29.6 MCHC 32.3 RDW 14.5 Plt Count 148 MPV 11.2 H Sodium 140 Potassium 5.0 Chloride 106 Carbon Dioxide 28 Anion Gap 6 L BUN 19 H Creatinine 1.2 Creat Clearance w eGFR > 60 Random Glucose 82 Calcium 8.8 Total Bilirubin 0.8 AST 81 H ALT 54 Alkaline Phosphatase 95 Total Protein 7.7 Albumin 3.7 RPR Titer Nonreactive PE: ALERT AND ORIENTED X 3 SKIN WARM AND DRY EXT FULL ROM AMB AD BUSHRA IRRITABLE A/P WITHDRAWAL SX CONTINUE DETOX ENCOURAGE ORAL FLUIDS CONTINUE TO MONITOR
[2018-04-07] MEDS: chlordiazePOXIDE HCL 10 MG CAPSULE PO SCH ×2 (17:21→22:38)
[2018-04-07] MEDS: traZODone HCL 50 MG TABLET (FP) PO SCH (22:38)
[2018-04-07] MEDS: THIAMINE HCL 100 MG TABLET (FP) PO SCH (22:38)
[2018-04-08] MEDS: chlordiazePOXIDE HCL 10 MG CAPSULE PO SCH ×2 (05:30→10:35)
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
[2018-04-08 09:22] VITALS: BP 128/69; PULSE 71; TEMP 98.4
[2018-04-08] MEDS: PRENATAL VITAMINS W/ FOLIC ACID TABLET (FP) PO SCH (10:33)
== END 2018-04-08 12:50 | disposition other institution (70) | DRG 773 ==
LOC: YASAS 08:36 → Y6N 12:35
PROC: HZ2ZZZZ Detoxification Services for Substance Abuse Treatment (ICD-10-PCS; principal; 2018-04-04)
DX: F10.230 Alcohol dependence with withdrawal, uncomplicated (principal); F14.20 Cocaine dependence, uncomplicated; F11.11 Opioid abuse, in remission; F17.210 Nicotine dependence, cigarettes, uncomplicated; F31.81 Bipolar II disorder; F25.9 Schizoaffective disorder, unspecified; F19.24 Other psychoactive substance dependence with psychoactive substance-induced mood disorder; F19.282 Other psychoactive substance dependence with psychoactive substance-induced sleep disorder; F41.9 Anxiety disorder, unspecified; B20 Human immunodeficiency virus [HIV] disease; H54.40 Blindness, one eye, unspecified eye; H40.89 Other specified glaucoma; B18.2 Chronic viral hepatitis C; Z91.013 Allergy to seafood
CPT/HCPCS: 36415; 80053; 85027; 86593

== ENCOUNTER 2018-04-08 13:16 | Inpatient (IN) | payer OTHER ==
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
[2018-04-08] MEDS ORDERED: MAGNESIUM CITRATE 300 ML BOTTLE PO PRN (15:02)
[2018-04-08] MEDS ORDERED: LOPERAMIDE HCL 2 MG CAPSULE PO PRN (15:02)
[2018-04-08] MEDS ORDERED: IBUPROFEN 400 MG TABLET (FP) PO PRN (15:02)
[2018-04-08] MEDS ORDERED: guaiFENesin/D-METHORPHAN HB 10 ML UNIT-DOSE CUPS PO PRN (15:02)
[2018-04-08] MEDS ORDERED: MENTHOL/PHENOL 1 EACH UD MM PRN (15:02)
[2018-04-08] MEDS ORDERED: P-EPHED 60MG/TRIPROLIDI 2.5MG TABLET PO PRN (15:02)
[2018-04-08] MEDS ORDERED: MAG HYDROX/AL HYDROX/SIMETH 30 ML UNIT-DOSE CUP PO PRN (15:02)
[2018-04-08] MEDS ORDERED: MAGNESIUM HYDROX 2400MG/30ML ORAL SUSPENSION 30 ML CUP PO PRN (15:02)
[2018-04-08] MEDS ORDERED: NICOTINE POLACRILEX 4 MG GUM BUC PRN (15:02)
[2018-04-08] MEDS ORDERED: hydrOXYzine PAMOATE 50 MG CAPSULE (FP) PO PRN (15:02)
[2018-04-08] MEDS ORDERED: ACETAMINOPHEN 325 MG TABLET (FP) PO PRN (15:02)
--- NOTE | 2018-04-08 15:02 | HP ---
[facility] Rehab Assess/Revision - Admission History Admitted to Rehab from: [address] - Vital signs Vital Signs: Vital Signs Period Temp Pulse Resp BP Sys/Katz Pulse Ox Last 24 Hr 98.3 F 73 18 115/74 - Findings Detox History & Physical reviewed: Yes Concur with findings: Yes Inpatient Rehab Admission - Initial Determination Are CD services needed?: Yes Free of communicable disease: Yes Not in need of hospitalization: Yes - Rehab Admission Criteria Previous failed treatment: Yes Poor recovery environment: Yes Comorbidities: Yes
[2018-04-08] MEDS ORDERED: TUBERCULIN PPD 5 TU/0.1ML VIAL ID ONE (15:11)
[2018-04-08] MEDS: risperiDONE 1 MG TABLET (FP) PO SCH (21:58)
[2018-04-08] MEDS: MELATONIN 5 MG TABLETS PO PRN (21:58)
[2018-04-08] MEDS: THIAMINE HCL 100 MG TABLET (FP) PO SCH (21:58)
[2018-04-08] MEDS: traZODone HCL 50 MG TABLET (FP) PO SCH (21:58)
[2018-04-09] MEDS: risperiDONE 1 MG TABLET (FP) PO SCH ×2 (11:09→21:50)
[2018-04-09] MEDS: PRENATAL VITAMINS W/ FOLIC ACID TABLET (FP) PO SCH (11:09)
[2018-04-09] MEDS: NICOTINE 21 MG/24 HOURS TOPICAL PATCH TD SCH (11:09)
[2018-04-09] MEDS: traZODone HCL 50 MG TABLET (FP) PO SCH (21:50)
[2018-04-09] MEDS: THIAMINE HCL 100 MG TABLET (FP) PO SCH (21:50)
[2018-04-09] MEDS: MELATONIN 5 MG TABLETS PO PRN (21:51)
[2018-04-10] MEDS: NICOTINE 21 MG/24 HOURS TOPICAL PATCH TD SCH (10:51)
[2018-04-10] MEDS: risperiDONE 1 MG TABLET (FP) PO SCH ×2 (10:51→22:04)
[2018-04-10] MEDS: PRENATAL VITAMINS W/ FOLIC ACID TABLET (FP) PO SCH (10:51)
[2018-04-10] MEDS: THIAMINE HCL 100 MG TABLET (FP) PO SCH (22:04)
[2018-04-10] MEDS: traZODone HCL 50 MG TABLET (FP) PO SCH (22:04)
[2018-04-10] MEDS: MELATONIN 5 MG TABLETS PO PRN (22:05)
[2018-04-11] MEDS: risperiDONE 1 MG TABLET (FP) PO SCH ×2 (10:46→21:50)
[2018-04-11] MEDS: NICOTINE 21 MG/24 HOURS TOPICAL PATCH TD SCH (10:46)
[2018-04-11] MEDS: PRENATAL VITAMINS W/ FOLIC ACID TABLET (FP) PO SCH (10:46)
[2018-04-11] MEDS: THIAMINE HCL 100 MG TABLET (FP) PO SCH (21:50)
[2018-04-11] MEDS: traZODone HCL 50 MG TABLET (FP) PO SCH (21:50)
[2018-04-11] MEDS: MELATONIN 5 MG TABLETS PO PRN (21:51)
[2018-04-12] MEDS: PRENATAL VITAMINS W/ FOLIC ACID TABLET (FP) PO SCH (10:19)
[2018-04-12] MEDS: risperiDONE 1 MG TABLET (FP) PO SCH ×2 (10:19→21:41)
[2018-04-12] MEDS: NICOTINE 21 MG/24 HOURS TOPICAL PATCH TD SCH (10:19)
[2018-04-12] MEDS: traZODone HCL 50 MG TABLET (FP) PO SCH (21:41)
[2018-04-12] MEDS: THIAMINE HCL 100 MG TABLET (FP) PO SCH (21:41)
[2018-04-12] MEDS: MELATONIN 5 MG TABLETS PO PRN (21:41)
[2018-04-13] MEDS: NICOTINE 21 MG/24 HOURS TOPICAL PATCH TD SCH (10:32)
[2018-04-13] MEDS: risperiDONE 1 MG TABLET (FP) PO SCH ×2 (10:32→21:38)
[2018-04-13] MEDS: PRENATAL VITAMINS W/ FOLIC ACID TABLET (FP) PO SCH (10:32)
[2018-04-13] MEDS: MELATONIN 5 MG TABLETS PO PRN (21:38)
[2018-04-13] MEDS: THIAMINE HCL 100 MG TABLET (FP) PO SCH (21:38)
[2018-04-13] MEDS: traZODone HCL 50 MG TABLET (FP) PO SCH (21:38)
[2018-04-14] MEDS: risperiDONE 1 MG TABLET (FP) PO SCH ×2 (10:44→21:37)
[2018-04-14] MEDS: PRENATAL VITAMINS W/ FOLIC ACID TABLET (FP) PO SCH (10:44)
[2018-04-14] MEDS: NICOTINE 21 MG/24 HOURS TOPICAL PATCH TD SCH (10:45)
[2018-04-14] MEDS: MELATONIN 5 MG TABLETS PO PRN (21:37)
[2018-04-14] MEDS: THIAMINE HCL 100 MG TABLET (FP) PO SCH (21:37)
[2018-04-14] MEDS: traZODone HCL 50 MG TABLET (FP) PO SCH (21:38)
[2018-04-15] MEDS: NICOTINE 21 MG/24 HOURS TOPICAL PATCH TD SCH (10:28)
[2018-04-15] MEDS: risperiDONE 1 MG TABLET (FP) PO SCH ×2 (10:29→21:33)
[2018-04-15] MEDS: PRENATAL VITAMINS W/ FOLIC ACID TABLET (FP) PO SCH (10:29)
[2018-04-15] MEDS ORDERED: TUBERCULIN PPD 5 TU/0.1ML VIAL ID ONE (10:31)
[2018-04-15] MEDS: THIAMINE HCL 100 MG TABLET (FP) PO SCH (21:33)
[2018-04-15] MEDS: MELATONIN 5 MG TABLETS PO PRN (21:33)
[2018-04-15] MEDS: traZODone HCL 50 MG TABLET (FP) PO SCH (21:33)
[2018-04-16] MEDS: NICOTINE 21 MG/24 HOURS TOPICAL PATCH TD SCH (10:50)
[2018-04-16] MEDS: risperiDONE 1 MG TABLET (FP) PO SCH ×2 (10:50→21:46)
[2018-04-16] MEDS: PRENATAL VITAMINS W/ FOLIC ACID TABLET (FP) PO SCH (10:50)
[2018-04-16] MEDS: traZODone HCL 50 MG TABLET (FP) PO SCH (21:46)
[2018-04-16] MEDS: MELATONIN 5 MG TABLETS PO PRN (21:46)
[2018-04-16] MEDS: THIAMINE HCL 100 MG TABLET (FP) PO SCH (21:46)
[2018-04-17 06:51] VITALS: BP 122/74; PULSE 60; TEMP 98.1
[2018-04-17] MEDS: PRENATAL VITAMINS W/ FOLIC ACID TABLET (FP) PO SCH (10:38)
[2018-04-17] MEDS: risperiDONE 1 MG TABLET (FP) PO SCH (10:38)
[2018-04-17] MEDS: NICOTINE 21 MG/24 HOURS TOPICAL PATCH TD SCH (10:39)
--- NOTE | 2018-04-17 15:21 | PN ---
Psychiatric Progress Note Vital Signs: Vital Signs Period Temp Pulse Resp BP Sys/Katz Pulse Ox Last 24 Hr 98.1 F 60 18-18 122/74 Date of Session: 04/17/18 Chief Complaint:: "Discharge" HPI: Patient admitted to for alcohol and cocaine dependence co-morbid schizoaffective disorder. ROS: HIV infection since 1989,glaucoma (right eye),hepatitis C,history of enucleation of left eye (prosthesis since 1970) and right inguinal herniorraphy (2012). Current Medications: Active Medications Generic Name Dose Route Start Last Admin Trade Name Freq PRN Reason Stop Dose Admin Acetaminophen 650 mg 04/08/18 15:02 Tylenol - PO Q4H PRN FEVER Al Hydroxide/Mg Hydroxide 30 ml 04/08/18 15:02 Mylanta Oral Suspension - PO Q6H PRN DYSPEPSIA Eucalyptus/Menthol/Phenol/Sorbitol 1 each 04/08/18 15:02 Cepastat Lozenge - MM Q4H PRN SORE THROAT Guaifenesin 10 ml 04/08/18 15:02 Robitussin Dm - PO Q6H PRN COUGH Hydroxyzine Pamoate 50 mg 04/08/18 15:02 Vistaril - PO Q4H PRN AGITATION Ibuprofen 400 mg 04/08/18 15:02 04/16/18 06:13 Motrin - PO 400 mg Q6H PRN Administration Pain Level 4-6 Loperamide HCl 4 mg 04/08/18 15:02 Imodium - PO Q6H PRN DIARRHEA Magnesium Citrate 300 ml 04/08/18 15:02 Citroma - PO Q48H PRN CONSTIPATION Magnesium Hydroxide 30 ml 04/08/18 15:02 Milk Of Magnesia - PO DAILY PRN CONSTIPATION Melatonin 5 mg 04/08/18 22:00 04/16/18 21:46 Melatonin PO 5 mg HS PRN Administration INSOMNIA Nicotine 21 mg 04/09/18 10:00 04/17/18 10:39 Nicoderm Patch - TD Not Given DAILY LUZ MARIA Nicotine Polacrilex 4 mg 04/08/18 15:02 Nicorette Gum - BUC Q2H PRN NICOTINE REPLACEMENT RX Multivit/Folic Acid/Iron 1 tab 04/09/18 10:00 04/17/18 10:38 Vitamins (Sjr) - PO 1 tab DAILY LUZ MARIA Administration Pseudoephedrine/Triprolidine 1 combo 04/08/18 15:02 Actifed - PO TID PRN NASAL CONGESTION Risperidone 1 mg 04/08/18 22:00 04/17/18 10:38 Risperdal - PO 1 mg BID LUZ MARIA Administration Thiamine HCl 100 mg 04/08/18 22:00 04/16/18 21:46 Vitamin B1 - PO 100 mg HS LUZ MARIA Administration Trazodone HCl 50 mg 04/08/18 22:00 04/16/18 21:46 Desyrel - PO 50 mg HS LUZ MARIA Administration Medication(s) Change(s): No. Current Side Effect: No Lab tests ordered: No Lab tests reviewed: Yes Provider note:: Patient requesting early discharge today after spending 9 days on the inpatient rehabilitation unit. Patient currently resides at an [facility] ( single room occupancy) and states he needs to return to his residence or they will remove all of his clothing. During his short stay in rehab patient reports learning the importance making better choices and surrounding himself with individuals who are oppose to using illegal substances. Patient will continue to address additional isses at the [facility] outpatient program. A 30 day prescription of risperdal 1mg BID + trazodone 50mg HS will be electronically sent to [facility] at [address] [place] [address], [facility]. Patient is stable for discharge on 04/17/18. Total face to face time:: 35 Mental Status Exam - Mental Status Exam Alert and Oriented to: Time, Place, Person Cognitive Function: Good Patient Appearance: Well Groomed Mood: Euthymic Affect: Appropriate Patient Behavior: Appropriate, Cooperative Speech Pattern: Appropriate Voice Loudness: Normal Thought Process: Intact, Goal Oriented Thought Disorder: Not Present Hallucinations: Denies Suicidal Ideation: Denies Homicidal Ideation: Denies Insight/Judgement: Fair Sleep: Fair Appetite: Good Muscle strength/Tone: Normal Gait/Station: Normal Psychiatric Treatment Plan - Problem List (1) Alcohol dependence Current Visit: Yes (2) Cocaine dependence Current Visit: Yes (3) Schizoaffective disorder Current Visit: Yes (4) Nicotine dependence Current Visit: Yes Qualifiers: Nicotine product type: cigarettes
== END 2018-04-17 15:45 | disposition home or self-care (01) | DRG 772 ==
LOC: YASAS 13:16 → Y5N 13:17
PROVIDERS: ADMIT Psychiatry & Neurology Psychiatry; ATTEND Psychiatry & Neurology Psychiatry
PROC: HZ42ZZZ Group Counseling for Substance Abuse Treatment, Cognitive-Behavioral (ICD-10-PCS; principal; 2018-04-08)
DX: F10.20 Alcohol dependence, uncomplicated (principal); F14.20 Cocaine dependence, uncomplicated; F17.210 Nicotine dependence, cigarettes, uncomplicated; F25.9 Schizoaffective disorder, unspecified; B20 Human immunodeficiency virus [HIV] disease; B18.2 Chronic viral hepatitis C; Z91.013 Allergy to seafood
CPT/HCPCS: J2794

== ENCOUNTER 2018-06-02 16:52 | Inpatient (IN) | payer OTHER ==
[2018-06-02 17:44] VITALS: BMI 24.3
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
[2018-06-02] MEDS ORDERED: MAG HYDROX/AL HYDROX/SIMETH 30 ML UNIT-DOSE CUP PO PRN (21:42)
[2018-06-02] MEDS ORDERED: ACETAMINOPHEN 325 MG TABLET (FP) PO PRN (21:42)
[2018-06-02] MEDS ORDERED: chlordiazePOXIDE HCL 25 MG CAPSULE PO ONE (21:42)
[2018-06-02] MEDS ORDERED: hydrOXYzine PAMOATE 25 MG CAPSULE (FP) PO PRN (21:42)
[2018-06-02] MEDS ORDERED: LOPERAMIDE HCL 2 MG CAPSULE PO PRN (21:42)
[2018-06-02] MEDS ORDERED: IBUPROFEN 400 MG TABLET (FP) PO PRN (21:42)
[2018-06-02] MEDS ORDERED: guaiFENesin/D-METHORPHAN HB 10 ML UNIT-DOSE CUPS PO PRN (21:42)
[2018-06-02] MEDS ORDERED: P-EPHED 60MG/TRIPROLIDI 2.5MG TABLET PO PRN (21:42)
[2018-06-02] MEDS ORDERED: MAGNESIUM CITRATE 300 ML BOTTLE PO PRN (21:42)
[2018-06-02] MEDS ORDERED: MAGNESIUM HYDROX 2400MG/30ML ORAL SUSPENSION 30 ML CUP PO PRN (21:42)
[2018-06-02] MEDS ORDERED: MENTHOL/PHENOL 1 EACH UD MM PRN (21:42)
[2018-06-02] MEDS ORDERED: NICOTINE POLACRILEX 2 MG GUM BC PRN (21:42)
[2018-06-02] MEDS ORDERED: chlordiazePOXIDE HCL 25 MG CAPSULE PO PRN (21:42)
[2018-06-02] MEDS ORDERED: MELATONIN 5 MG TABLETS PO PRN (22:00)
[2018-06-03] MEDS ORDERED: chlordiazePOXIDE HCL 25 MG CAPSULE PO ONE (02:30)
[2018-06-03] MEDS: THIAMINE HCL 100 MG TABLET (FP) PO SCH ×2 (02:35→22:27)
[2018-06-03] MEDS: chlordiazePOXIDE HCL 25 MG CAPSULE PO SCH ×5 (02:38→22:27)
--- NOTE | 2018-06-03 09:30 | PN ---
S CIWA - CIWA Score Nausea/Vomitin-No Nausea/No Vomiting Muscle Tremors: 4-Moderate,w/Arms Extend Anxiety: 4-Mod. Anxious/Guarded Agitation: 4-Moderately Restless Paroxysmal Sweats: 3 Orientation: 0-Oriented Tacttile Disturbances: 0-None Auditory Disturbances: 0-None Visual Disturbances: 0-None Headache: 1-Very Mild CIWA-Ar Total Score: 16 BHS Progress Note (SOAP) Subjective: sweats shakes anxiety interrupted sleep body aches Objective: 06/03/18 09:30 Vital Signs Temperature 98.1 F 06/03/18 07:03 Pulse Rate 59 L 06/03/18 07:03 Respiratory Rate 18 06/03/18 07:03 Blood Pressure 133/75 06/03/18 07:03 O2 Sat by Pulse Oximetry (%) labs pending aaox3 ambulating no acute distress Assessment: 06/03/18 09:30 withdrawal sx Plan: continue detox increase fluids
[2018-06-03] MEDS: PRENATAL VITAMINS W/ FOLIC ACID TABLET (FP) PO SCH (10:07)
[2018-06-03] MEDS: NICOTINE 14 MG/24 HOURS TOPICAL PATCH TD SCH (10:07)
[2018-06-03 10:50] LABS: HEMATOCRIT 40.8 % (35.4-49); HEMOGLOBIN 14.3 GM/dL (11.7-16.9); MCH 30.6 pg (25.7-33.7); MCHC 34.9 g/dl (32.0-35.9); MEAN CELL VOLUME 87.6 fl (80-96); MEAN PLT VOLUME 9.2 fl (7.5-11.1); PLATELET COUNT 121 K/MM3 (134-434); RBC 4.66 M/mm3 (4.00-5.60); RDW 14.2 % (11.9-15.9); WHITE BLOOD COUNT 2.9 K/mm3 (4.0-10.0)
[2018-06-03 11:15] LABS: ALBUMIN 3.2 g/dl (3.4-5.0); ALK PHOS 95 U/L (45-117); ANION GAP 5 MMOL/L (8-16); BILIRUBIN,TOTAL 0.7 mg/dL (0.2-1); BLOOD UREA NITROGEN 13 mg/dL (7-18); CALCIUM 8.8 mg/dL (8.5-10.1); CHLORIDE 107 mmol/L (98-107); CO2 27 mmol/L (21-32); GLUCOSE,RANDOM 110 mg/dL (74-106); SGOT/AST 40 U/L (15-37); SGPT/ALT 26 U/L (13-61); SODIUM 138 mmol/L (136-145); TOT PROT 7.5 g/dl (6.4-8.2)
--- NOTE | 2018-06-03 11:44 | CONSULT ---
[facility] Psychiatric Consult - Data Date of interview: 06/10/18 Admission source: [facility] Identifying data: Patient is a 62 year old single male, without children, unemployed, domiciled, and is supported by [facility]. This is one of multiple admissions for patient. Patient admitted to for alcohol and cocaine. Substance Abuse History: Smoking Cessation. Smoking history: Current every day smoker. Have you smoked in the past 12 months: Yes. Aproximately how many cigarettes per day: 10. Cigars Per Day: 0. Hx Chewing Tobacco Use: No. Initiated information on smoking cessation: Yes. 'Breaking Loose' booklet given : 06/02/18. - Substance & Tx. History. Hx Alcohol Use: Yes. Hx Substance Use : Yes. Substance Use Type: Alcohol, Cocaine. Hx Substance Use Treatment: Yes. - Substances Abused. Alcohol. Route: Oral. Frequency: Daily. Amount used: VODKA. Age of first use: 13. Date of Last Use: 06/01/18. Crack. Route: Smoking. Frequency: Daily. Amount used: $10/D. Age of first use: 33. Date of Last Use: 06/01/18 Medical History: Hep C, HIV, Glaucome on right eye Psychiatric History: Patient is an unreliable historian. Patient seen by investment underwriter while he was in rehab in March of 2018. Information extracted from previous admission. Patient reports one psychiatric hospitalization in the s for "drinking to much and acting crazy." He reports receiving trazodone from [facility] outpatient clinic several months ago. States he was prescribed trazodone for depression but denies any current symptoms of depression at this time. He denies h/o suicide attempt. As per previous entries, patient's psychiatric treatment started as a child due to behavioral issues. He was instituationalized for many years and treated with thorazine and other antipsychotic medications. Patient was treated at [facility] after endorsing suicidal ideation of jumping off the [employer] many years ago. Patient with a past diagnosis of schizoaffective disorder. Patient with a h/o chronic nonadherence to medications and outpatient treatment. At present, patient reports feeling "ok". States he has not heard voices in a long time but as per previous admission he last endorsed auditory hallucinations in February-March of 2018. Patient denies current urges or thoughts to hurt himself. Physical/Sexual Abuse/Trauma History: denies. Mental Status Exam - Mental Status Exam Alert and Oriented to: Time, Place, Person Cognitive Function: Fair Patient Appearance: Unkempt Mood: Sad, Withdrawn Affect: Mood Congruent Speech Pattern: Delayed Voice Loudness: Moderately Soft/Quiet Thought Process: Goal Oriented Hallucinations: Denies Suicidal Ideation: Denies Homicidal Ideation: Denies Insight/Judgement: Poor Sleep: Fair Appetite: Fair Muscle strength/Tone: Normal Gait/Station: Normal Psychiatric Findings - Problem List (Streeter 1, 2,3) (1) Cocaine dependence Current Visit: No Status: Chronic (2) Schizoaffective disorder Current Visit: Yes Status: Suspected (3) Nicotine dependence Current Visit: No Status: Chronic Qualifiers: Nicotine product type: cigarettes (4) Alcohol dependence with uncomplicated withdrawal Current Visit: Yes Status: Acute - Initial Treatment Plan Initial Treatment Plan: Psychoeducation provided. Detoxification in progress. Will order Risperdal 1mg qhs + trazodone 50mg qhs. Benefits and side effects discussed. Verbal consent given.
[2018-06-03] MEDS: traZODone HCL 50 MG TABLET (FP) PO SCH (22:27)
[2018-06-03] MEDS: risperiDONE 1 MG TABLET (FP) PO SCH (22:27)
[2018-06-04] MEDS: chlordiazePOXIDE HCL 25 MG CAPSULE PO SCH ×3 (06:36→16:48)
[2018-06-04] MEDS: NICOTINE 14 MG/24 HOURS TOPICAL PATCH TD SCH (10:35)
[2018-06-04] MEDS: PRENATAL VITAMINS W/ FOLIC ACID TABLET (FP) PO SCH (10:35)
[2018-06-04] MEDS: chlordiazePOXIDE 5 MG CAPSULE PO SCH (22:45)
[2018-06-04] MEDS: traZODone HCL 50 MG TABLET (FP) PO SCH (22:45)
[2018-06-04] MEDS: risperiDONE 1 MG TABLET (FP) PO SCH (22:46)
[2018-06-04] MEDS: THIAMINE HCL 100 MG TABLET (FP) PO SCH (22:46)
[2018-06-05] MEDS: chlordiazePOXIDE 5 MG CAPSULE PO SCH ×3 (05:56→18:05)
--- NOTE | 2018-06-05 10:13 | PN ---
S CIWA - CIWA Score Nausea/Vomitin-No Nausea/No Vomiting Muscle Tremors: 3 Anxiety: 2 Agitation: 2 Paroxysmal Sweats: 1-Minimal Palms Moist Orientation: 0-Oriented Tacttile Disturbances: 0-None Auditory Disturbances: 0-None Visual Disturbances: 0-None Headache: 0-None Present CIWA-Ar Total Score: 8 BHS Progress Note (SOAP) Subjective: sweats tired feeling much better Objective: 06/05/18 10:12 Vital Signs Temperature 97.9 F 06/05/18 09:41 Pulse Rate 74 06/05/18 09:41 Respiratory Rate 18 06/05/18 09:41 Blood Pressure 112/84 06/05/18 09:41 O2 Sat by Pulse Oximetry (%) aaox3 ambulating no acute distress Assessment: 06/05/18 10:12 mild withdrawal sx Plan: continue detox increase fluids d/c in am
[2018-06-05] MEDS: NICOTINE 14 MG/24 HOURS TOPICAL PATCH TD SCH (11:16)
[2018-06-05] MEDS: PRENATAL VITAMINS W/ FOLIC ACID TABLET (FP) PO SCH (11:16)
[2018-06-05] MEDS: risperiDONE 1 MG TABLET (FP) PO SCH (22:06)
[2018-06-05] MEDS: THIAMINE HCL 100 MG TABLET (FP) PO SCH (22:06)
[2018-06-05] MEDS: traZODone HCL 50 MG TABLET (FP) PO SCH (22:06)
[2018-06-05] MEDS: chlordiazePOXIDE HCL 10 MG CAPSULE PO SCH (22:06)
[2018-06-06] MEDS: chlordiazePOXIDE HCL 10 MG CAPSULE PO SCH (06:09)
[2018-06-06 09:27] VITALS: BP 134/73; PULSE 73; TEMP 97.8
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
== END 2018-06-06 09:35 | disposition home or self-care (01) | DRG 773 ==
LOC: YASAS 16:52 → Y6N 23:15
PROVIDERS: ADMIT Surgery; ATTEND Surgery
PROC: HZ2ZZZZ Detoxification Services for Substance Abuse Treatment (ICD-10-PCS; principal; 2018-06-02)
DX: F11.23 Opioid dependence with withdrawal (principal); F10.230 Alcohol dependence with withdrawal, uncomplicated; F14.20 Cocaine dependence, uncomplicated; F17.210 Nicotine dependence, cigarettes, uncomplicated; F31.89 Other bipolar disorder; F31.81 Bipolar II disorder; F25.9 Schizoaffective disorder, unspecified; F19.24 Other psychoactive substance dependence with psychoactive substance-induced mood disorder; F19.282 Other psychoactive substance dependence with psychoactive substance-induced sleep disorder; B20 Human immunodeficiency virus [HIV] disease; B18.2 Chronic viral hepatitis C; H40.9 Unspecified glaucoma; H54.62 Unqualified visual loss, left eye, normal vision right eye; R63.4 Abnormal weight loss; Z68.24 Body mass index [BMI] 24.0-24.9, adult; Z91.013 Allergy to seafood
CPT/HCPCS: 36415; 80053; 85027; 86593; J2794

== ENCOUNTER 2018-06-30 08:26 | Inpatient (IN) | payer OTHER ==
[2018-06-30 08:48] VITALS: BMI 25.1
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
[2018-06-30] MEDS ORDERED: MAGNESIUM HYDROX 2400MG/30ML ORAL SUSPENSION 30 ML CUP PO PRN (09:17)
[2018-06-30] MEDS ORDERED: BISMUTH SUBSALICYLATE 524 MG/30 ML UD PO PRN (09:17)
[2018-06-30] MEDS ORDERED: MAG HYDROX/AL HYDROX/SIMETH 30 ML UNIT-DOSE CUP PO PRN (09:17)
[2018-06-30] MEDS ORDERED: MAGNESIUM CITRATE 300 ML BOTTLE PO PRN (09:17)
[2018-06-30] MEDS ORDERED: ACETAMINOPHEN 325 MG TABLET (FP) PO PRN ×2 (09:17)
[2018-06-30] MEDS ORDERED: METHOCARBAMOL 500 MG TABLET PO PRN (09:17)
[2018-06-30] MEDS ORDERED: hydrOXYzine PAMOATE 25 MG CAPSULE (FP) PO PRN (09:17)
[2018-06-30] MEDS ORDERED: chlordiazePOXIDE HCL 10 MG CAPSULE PO PRN (09:17)
[2018-06-30] MEDS ORDERED: IBUPROFEN 400 MG TABLET (FP) PO PRN (09:17)
[2018-06-30] MEDS ORDERED: MENTHOL/PHENOL 1 EACH UD MM PRN (09:17)
[2018-06-30] MEDS: NICOTINE 21 MG/24 HOURS TOPICAL PATCH TD SCH (14:05)
[2018-06-30] MEDS: chlordiazePOXIDE HCL 25 MG CAPSULE PO SCH ×3 (14:07→22:11)
[2018-06-30] MEDS: PRENATAL VITAMINS W/ FOLIC ACID TABLET (FP) PO SCH (14:08)
[2018-06-30] MEDS: THIAMINE HCL 100 MG TABLET (FP) PO SCH (22:11)
[2018-06-30] MEDS: MELATONIN 5 MG TABLETS PO PRN (22:11)
[2018-07-01] MEDS: chlordiazePOXIDE 5 MG CAPSULE PO SCH ×3 (05:29→22:09)
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
[2018-07-01] MEDS: NICOTINE 21 MG/24 HOURS TOPICAL PATCH TD SCH (10:26)
[2018-07-01] MEDS: PRENATAL VITAMINS W/ FOLIC ACID TABLET (FP) PO SCH (10:26)
[2018-07-01 10:27] LABS: HEMATOCRIT 41.2 % (35.4-49); HEMOGLOBIN 14.2 GM/dL (11.7-16.9); MCH 30.9 pg (25.7-33.7); MCHC 34.3 g/dl (32.0-35.9); MEAN PLT VOLUME 10.5 fl (7.5-11.1); PLATELET COUNT 113 K/MM3 (134-434); RBC 4.58 M/mm3 (4.00-5.60); RDW 15.1 % (11.9-15.9); WHITE BLOOD COUNT 3.7 K/mm3 (4.0-10.0)
[2018-07-01 10:34] LABS: ALBUMIN 3.5 g/dl (3.4-5.0); ALK PHOS 76 U/L (45-117); ANION GAP 3 MMOL/L (8-16); BILIRUBIN,TOTAL 0.8 mg/dL (0.2-1); BLOOD UREA NITROGEN 19 mg/dL (7-18); CALCIUM 8.4 mg/dL (8.5-10.1); CHLORIDE 108 mmol/L (98-107); CO2 28 mmol/L (21-32); CREATININE 1.2 mg/dL (0.55-1.3); GLUCOSE,RANDOM 80 mg/dL (74-106); POTASSIUM 4.8 mmol/L (3.5-5.1); SGOT/AST 54 U/L (15-37); SGPT/ALT 32 U/L (13-61); SODIUM 139 mmol/L (136-145); TOT PROT 8.7 g/dl (6.4-8.2)
--- NOTE | 2018-07-01 11:35 | PN ---
S CIWA - CIWA Score Nausea/Vomitin-No Nausea/No Vomiting Muscle Tremors: 2 Anxiety: 1-Mildly Anxious Agitation: 2 Paroxysmal Sweats: 1-Minimal Palms Moist Orientation: 2-Disoriented Date<2 days Tacttile Disturbances: 0-None Auditory Disturbances: 0-None Visual Disturbances: 0-None Headache: 2-Mild CIWA-Ar Total Score: 10 S Progress Note (SOAP) Subjective: tremor sweating sleep better last night well rested Objective: 07/01/18 11:35 Vital Signs Temperature 97.3 F L 07/01/18 09:38 Pulse Rate 78 07/01/18 09:38 Respiratory Rate 18 07/01/18 09:38 Blood Pressure 128/79 07/01/18 09:38 O2 Sat by Pulse Oximetry (%) Laboratory Last Values WBC 3.7 K/mm3 (4.0-10.0) L 07/01/18 06:00 RBC 4.58 M/mm3 (4.00-5.60) 07/01/18 06:00 Hgb 14.2 GM/dL (11.7-16.9) 07/01/18 06:00 Hct 41.2 % (35.4-49) 07/01/18 06:00 MCV 90.0 fl (80-96) 07/01/18 06:00 MCH 30.9 pg (25.7-33.7) 07/01/18 06:00 MCHC 34.3 g/dl (32.0-35.9) 07/01/18 06:00 RDW 15.1 % (11.9-15.9) 07/01/18 06:00 Plt Count 113 K/MM3 (134-434) L 07/01/18 06:00 MPV 10.5 fl (7.5-11.1) D 07/01/18 06:00 Sodium 139 mmol/L (136-145) 07/01/18 06:00 Potassium 4.8 mmol/L (3.5-5.1) 07/01/18 06:00 Chloride 108 mmol/L (98-107) H 07/01/18 06:00 Carbon Dioxide 28 mmol/L (21-32) 07/01/18 06:00 Anion Gap 3 MMOL/L (8-16) L 07/01/18 06:00 BUN 19 mg/dL (7-18) H 07/01/18 06:00 Creatinine 1.2 mg/dL (0.55-1.3) 07/01/18 06:00 Creat Clearance w eGFR > 60 (>60) 07/01/18 06:00 Random Glucose 80 mg/dL (74-106) 07/01/18 06:00 Calcium 8.4 mg/dL (8.5-10.1) L 07/01/18 06:00 Total Bilirubin 0.8 mg/dL (0.2-1) 07/01/18 06:00 AST 54 U/L (15-37) H 07/01/18 06:00 ALT 32 U/L (13-61) 07/01/18 06:00 Alkaline Phosphatase 76 U/L (45-117) 07/01/18 06:00 Total Protein 8.7 g/dl (6.4-8.2) H 07/01/18 06:00 Albumin 3.5 g/dl (3.4-5.0) 07/01/18 06:00 lab noted Assessment: 07/01/18 11:35 alcohol withdrawal sx Plan: continue detox
[2018-07-01] MEDS: traZODone HCL 100 MG TABLET (FP) PO SCH (22:09)
[2018-07-01] MEDS: THIAMINE HCL 100 MG TABLET (FP) PO SCH (22:09)
[2018-07-01] MEDS: MELATONIN 5 MG TABLETS PO PRN (22:10)
[2018-07-02] MEDS ORDERED: chlordiazePOXIDE HCL 10 MG CAPSULE PO PRN (05:00)
[2018-07-02] MEDS: chlordiazePOXIDE HCL 10 MG CAPSULE PO SCH ×3 (05:16→22:13)
[2018-07-02] MEDS: PRENATAL VITAMINS W/ FOLIC ACID TABLET (FP) PO SCH (10:18)
[2018-07-02] MEDS: NICOTINE 21 MG/24 HOURS TOPICAL PATCH TD SCH (10:18)
--- NOTE | 2018-07-02 11:06 | PN ---
[facility] CIWA - CIWA Score Nausea/Vomitin-No Nausea/No Vomiting Muscle Tremors: 1-None Visible, but [place] Anxiety: 1-Mildly Anxious Agitation: 1-Slight > Activity Paroxysmal Sweats: 1-Minimal Palms Moist Orientation: 0-Oriented Tacttile Disturbances: 0-None Auditory Disturbances: 0-None Visual Disturbances: 0-None Headache: 1-Very Mild CIWA-Ar Total Score: 5 BHS Progress Note (SOAP) Subjective: tremor sweating mild headaches today Objective: 07/02/18 11:06 Vital Signs Temperature 98.2 F 07/02/18 09:06 Pulse Rate 73 07/02/18 09:06 Respiratory Rate 16 07/02/18 09:06 Blood Pressure 123/80 07/02/18 09:06 O2 Sat by Pulse Oximetry (%) Laboratory Last Values WBC 3.7 K/mm3 (4.0-10.0) L 07/01/18 06:00 RBC 4.58 M/mm3 (4.00-5.60) 07/01/18 06:00 Hgb 14.2 GM/dL (11.7-16.9) 07/01/18 06:00 Hct 41.2 % (35.4-49) 07/01/18 06:00 MCV 90.0 fl (80-96) 07/01/18 06:00 MCH 30.9 pg (25.7-33.7) 07/01/18 06:00 MCHC 34.3 g/dl (32.0-35.9) 07/01/18 06:00 RDW 15.1 % (11.9-15.9) 07/01/18 06:00 Plt Count 113 K/MM3 (134-434) L 07/01/18 06:00 MPV 10.5 fl (7.5-11.1) D 07/01/18 06:00 Sodium 139 mmol/L (136-145) 07/01/18 06:00 Potassium 4.8 mmol/L (3.5-5.1) 07/01/18 06:00 Chloride 108 mmol/L (98-107) H 07/01/18 06:00 Carbon Dioxide 28 mmol/L (21-32) 07/01/18 06:00 Anion Gap 3 MMOL/L (8-16) L 07/01/18 06:00 BUN 19 mg/dL (7-18) H 07/01/18 06:00 Creatinine 1.2 mg/dL (0.55-1.3) 07/01/18 06:00 Creat Clearance w eGFR > 60 (>60) 07/01/18 06:00 Random Glucose 80 mg/dL (74-106) 07/01/18 06:00 Calcium 8.4 mg/dL (8.5-10.1) L 07/01/18 06:00 Total Bilirubin 0.8 mg/dL (0.2-1) 07/01/18 06:00 AST 54 U/L (15-37) H 07/01/18 06:00 ALT 32 U/L (13-61) 07/01/18 06:00 Alkaline Phosphatase 76 U/L (45-117) 07/01/18 06:00 Total Protein 8.7 g/dl (6.4-8.2) H 07/01/18 06:00 Albumin 3.5 g/dl (3.4-5.0) 07/01/18 06:00 RPR Titer Nonreactive (NONREACTIVE) 07/01/18 06:00 lab noted Assessment: 07/02/18 11:06 withdrawal sx Plan: continue detox
[2018-07-02] MEDS: THIAMINE HCL 100 MG TABLET (FP) PO SCH (22:13)
[2018-07-02] MEDS: traZODone HCL 100 MG TABLET (FP) PO SCH (22:13)
[2018-07-02] MEDS: MELATONIN 5 MG TABLETS PO PRN (22:13)
[2018-07-03] MEDS: chlordiazePOXIDE HCL 10 MG CAPSULE PO SCH (05:17)
[2018-07-03 09:44] VITALS: BP 119/73; PULSE 82; TEMP 97.6
[2018-07-03] MEDS: PRENATAL VITAMINS W/ FOLIC ACID TABLET (FP) PO SCH (10:06)
[2018-07-03] MEDS: NICOTINE 21 MG/24 HOURS TOPICAL PATCH TD SCH (10:06)
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
== END 2018-07-03 12:25 | disposition other institution (70) | DRG 774 ==
LOC: YASAS 08:26 → Y3N 11:02
PROVIDERS: ADMIT Surgery; ATTEND Surgery
PROC: HZ2ZZZZ Detoxification Services for Substance Abuse Treatment (ICD-10-PCS; principal; 2018-06-30)
DX: F10.230 Alcohol dependence with withdrawal, uncomplicated (principal); F14.20 Cocaine dependence, uncomplicated; F17.210 Nicotine dependence, cigarettes, uncomplicated; F19.24 Other psychoactive substance dependence with psychoactive substance-induced mood disorder; F19.282 Other psychoactive substance dependence with psychoactive substance-induced sleep disorder; F25.9 Schizoaffective disorder, unspecified; B20 Human immunodeficiency virus [HIV] disease; H40.9 Unspecified glaucoma; B18.2 Chronic viral hepatitis C; H54.40 Blindness, one eye, unspecified eye; Z87.828 Personal history of other (healed) physical injury and trauma; Z90.01 Acquired absence of eye; Z91.013 Allergy to seafood; R63.4 Abnormal weight loss; Z68.25 Body mass index [BMI] 25.0-25.9, adult
CPT/HCPCS: 36415; 80053; 85027; 86593

== ENCOUNTER 2018-07-03 12:32 | Inpatient (IN) | payer OTHER ==
[2018-07-03] MEDS ORDERED: IBUPROFEN 400 MG TABLET (FP) PO PRN (13:10)
[2018-07-03] MEDS ORDERED: P-EPHED 60MG/TRIPROLIDI 2.5MG TABLET PO PRN (13:10)
[2018-07-03] MEDS ORDERED: MAGNESIUM CITRATE 300 ML BOTTLE PO PRN (13:10)
[2018-07-03] MEDS ORDERED: ACETAMINOPHEN 325 MG TABLET (FP) PO PRN (13:10)
[2018-07-03] MEDS ORDERED: MAG HYDROX/AL HYDROX/SIMETH 30 ML UNIT-DOSE CUP PO PRN (13:10)
[2018-07-03] MEDS ORDERED: MENTHOL/PHENOL 1 EACH UD MM PRN (13:10)
[2018-07-03] MEDS ORDERED: guaiFENesin 200 MG/10 ML 10 ML UNIT-DOSE CUPS PO PRN (13:10)
[2018-07-03] MEDS ORDERED: MAGNESIUM HYDROX 2400MG/30ML ORAL SUSPENSION 30 ML CUP PO PRN (13:10)
[2018-07-03] MEDS ORDERED: LOPERAMIDE HCL 2 MG CAPSULE PO PRN (13:10)
--- NOTE | 2018-07-03 13:17 | HP ---
[facility] Rehab Assess/Revision - Admission History Admitted to Rehab from: [facility] Date of Admission to Rehab: 07/03/2018 - Vital signs Vital Signs: Vital Signs Period Temp Pulse Resp BP Sys/Katz Pulse Ox Last 24 Hr 98.6 F 74 18 126/81 - Findings Detox History & Physical reviewed: Yes Concur with findings: Yes Comments/Additional Findings: PATIENT'S MEDICAL / MEDICATION HISTORY REVIEWED PRIOR TO DISCHARGE FROM DETOX UNIT. PATIENT WAS DISCHARGED FROM DETOX UNIT TO BE TAKEN TO REHAB UNIT IN STABLE MEDICAL CONDITION. Inpatient Rehab Admission - Rehab Decision to Admit Inpatient rehab admission?: Yes - Initial Determination Are CD services needed?: Yes Free of communicable disease: Yes Not in need of hospitalization: Yes - Rehab Admission Criteria Previous failed treatment: Yes Poor recovery environment: Yes Comorbidities: Yes Lacks judgement: No Patient is meeting Inpatient Rehab admission criteria:: Yes
[2018-07-03] MEDS: traZODone HCL 100 MG TABLET (FP) PO SCH (21:33)
[2018-07-03] MEDS: THIAMINE HCL 100 MG TABLET (FP) PO SCH (21:33)
[2018-07-03] MEDS: MELATONIN 5 MG TABLETS PO PRN (21:34)
[2018-07-04] MEDS: NICOTINE 21 MG/24 HOURS TOPICAL PATCH TD SCH (10:52)
[2018-07-04] MEDS: PRENATAL VITAMINS W/ FOLIC ACID TABLET (FP) PO SCH (10:52)
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
[2018-07-04] MEDS: risperiDONE 1 MG TABLET (FP) PO SCH ×2 (15:08→22:13)
[2018-07-04] MEDS ORDERED: traZODone HCL 100 MG TABLET (FP) PO SCH (22:00)
[2018-07-04] MEDS: THIAMINE HCL 100 MG TABLET (FP) PO SCH (22:13)
[2018-07-04] MEDS: traZODone HCL 100 MG TABLET (FP) PO SCH (22:13)
[2018-07-04] MEDS: MELATONIN 5 MG TABLETS PO PRN (22:13)
[2018-07-04] MEDS: LATANOPROST 0.005% OPHTH SOLN 2.5ML BOTTLE OD SCH (23:09)
[2018-07-05] MEDS: risperiDONE 1 MG TABLET (FP) PO SCH ×2 (10:41→21:52)
[2018-07-05] MEDS: PRENATAL VITAMINS W/ FOLIC ACID TABLET (FP) PO SCH (10:41)
[2018-07-05] MEDS: NICOTINE 21 MG/24 HOURS TOPICAL PATCH TD SCH (10:41)
[2018-07-05] MEDS: hydrOXYzine PAMOATE 50 MG CAPSULE (FP) PO PRN ×2 (18:02→21:53)
[2018-07-05] MEDS: MELATONIN 5 MG TABLETS PO PRN (21:52)
[2018-07-05] MEDS: traZODone HCL 100 MG TABLET (FP) PO SCH (21:52)
[2018-07-05] MEDS: THIAMINE HCL 100 MG TABLET (FP) PO SCH (21:52)
[2018-07-05] MEDS: LATANOPROST 0.005% OPHTH SOLN 2.5ML BOTTLE OD SCH (21:53)
[2018-07-06 07:00] VITALS: BP 114/69; PULSE 71; TEMP 97.6
[2018-07-06] MEDS: PRENATAL VITAMINS W/ FOLIC ACID TABLET (FP) PO SCH (10:55)
[2018-07-06] MEDS: NICOTINE 21 MG/24 HOURS TOPICAL PATCH TD SCH (10:55)
[2018-07-06] MEDS: hydrOXYzine PAMOATE 50 MG CAPSULE (FP) PO PRN (10:55)
[2018-07-06] MEDS: risperiDONE 1 MG TABLET (FP) PO SCH (10:55)
--- NOTE | 2018-07-06 12:23 | PN ---
Diane Progress Note Note: patient did not want to complete treatment,all attempts to convince patient to stay with no avail,seen by counselor, risks of relapsing is high,patient understood,advise to go to nearest emergency room if any emergency problem Vital Signs Temperature 97.6 F 07/06/18 06:59 Pulse Rate 71 07/06/18 06:59 Respiratory Rate 18 07/06/18 06:59 Blood Pressure 114/69 07/06/18 06:59 O2 Sat by Pulse Oximetry (%) left the unit in stable condition
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
== END 2018-07-06 11:45 | disposition left against medical advice (07) | DRG 770 ==
LOC: YASAS 12:32 → Y5N 12:33
PROVIDERS: ADMIT Neuromusculoskeletal Medicine & OMM; ATTEND Neuromusculoskeletal Medicine & OMM
PROC: HZ42ZZZ Group Counseling for Substance Abuse Treatment, Cognitive-Behavioral (ICD-10-PCS; principal; 2018-07-03)
DX: F10.20 Alcohol dependence, uncomplicated (principal); F17.210 Nicotine dependence, cigarettes, uncomplicated; F19.282 Other psychoactive substance dependence with psychoactive substance-induced sleep disorder; F25.9 Schizoaffective disorder, unspecified; B20 Human immunodeficiency virus [HIV] disease; B18.2 Chronic viral hepatitis C; H40.9 Unspecified glaucoma; G62.9 Polyneuropathy, unspecified; Z90.01 Acquired absence of eye
CPT/HCPCS: J2794

== ENCOUNTER 2018-08-27 17:20 | Inpatient (IN) | payer OTHER ==
[2018-08-27 19:50] VITALS: BMI 23.6
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
[2018-08-27] MEDS ORDERED: MENTHOL/PHENOL 1 EACH UD MM PRN (20:34)
[2018-08-27] MEDS ORDERED: MAGNESIUM CITRATE 300 ML BOTTLE PO PRN (20:34)
[2018-08-27] MEDS ORDERED: LOPERAMIDE HCL 2 MG CAPSULE PO PRN (20:34)
[2018-08-27] MEDS ORDERED: MAGNESIUM HYDROX 2400MG/30ML ORAL SUSPENSION 30 ML CUP PO PRN (20:34)
[2018-08-27] MEDS ORDERED: P-EPHED 60MG/TRIPROLIDI 2.5MG TABLET PO PRN (20:34)
[2018-08-27] MEDS ORDERED: guaiFENesin 200 MG/10 ML 10 ML UNIT-DOSE CUPS PO PRN (20:34)
[2018-08-27] MEDS ORDERED: MAG HYDROX/AL HYDROX/SIMETH 30 ML UNIT-DOSE CUP PO PRN (20:34)
[2018-08-27] MEDS ORDERED: ACETAMINOPHEN 325 MG TABLET (FP) PO PRN (20:34)
[2018-08-27] MEDS ORDERED: NICOTINE POLACRILEX 2 MG GUM BUC PRN (20:34)
[2018-08-27] MEDS: THIAMINE HCL 100 MG TABLET (FP) PO SCH (22:55)
[2018-08-27] MEDS: LATANOPROST 0.005% OPHTH SOLN 2.5ML BOTTLE OD SCH (22:55)
[2018-08-28] MEDS: PRENATAL VITAMINS W/ FOLIC ACID TABLET (FP) PO SCH (10:24)
[2018-08-28] MEDS: NICOTINE 21 MG/24 HOURS TOPICAL PATCH TD SCH (10:24)
[2018-08-28] MEDS: THIAMINE HCL 100 MG TABLET (FP) PO SCH (21:44)
[2018-08-28] MEDS: MELATONIN 5 MG TABLETS PO PRN (21:44)
[2018-08-28] MEDS: LATANOPROST 0.005% OPHTH SOLN 2.5ML BOTTLE OD SCH (21:45)
[2018-08-29] MEDS: PRENATAL VITAMINS W/ FOLIC ACID TABLET (FP) PO SCH (10:33)
[2018-08-29] MEDS: NICOTINE 21 MG/24 HOURS TOPICAL PATCH TD SCH (10:33)
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
[2018-08-29] MEDS: THIAMINE HCL 100 MG TABLET (FP) PO SCH (22:10)
[2018-08-29] MEDS: MELATONIN 5 MG TABLETS PO PRN (22:10)
[2018-08-29] MEDS: LATANOPROST 0.005% OPHTH SOLN 2.5ML BOTTLE OD SCH (22:11)
[2018-08-30] MEDS: NICOTINE 21 MG/24 HOURS TOPICAL PATCH TD SCH (09:48)
[2018-08-30] MEDS: PRENATAL VITAMINS W/ FOLIC ACID TABLET (FP) PO SCH (09:48)
[2018-08-30] MEDS: THIAMINE HCL 100 MG TABLET (FP) PO SCH (21:31)
[2018-08-30] MEDS: LATANOPROST 0.005% OPHTH SOLN 2.5ML BOTTLE OD SCH (21:32)
[2018-08-30] MEDS: MELATONIN 5 MG TABLETS PO PRN (21:32)
[2018-08-31] MEDS: NICOTINE 21 MG/24 HOURS TOPICAL PATCH TD SCH (10:03)
[2018-08-31] MEDS: PRENATAL VITAMINS W/ FOLIC ACID TABLET (FP) PO SCH (10:03)
[2018-08-31] MEDS: LATANOPROST 0.005% OPHTH SOLN 2.5ML BOTTLE OD SCH (21:34)
[2018-08-31] MEDS: MELATONIN 5 MG TABLETS PO PRN (21:34)
[2018-08-31] MEDS: THIAMINE HCL 100 MG TABLET (FP) PO SCH (21:34)
[2018-09-01] MEDS: PRENATAL VITAMINS W/ FOLIC ACID TABLET (FP) PO SCH (10:43)
[2018-09-01] MEDS: NICOTINE 21 MG/24 HOURS TOPICAL PATCH TD SCH (10:43)
[2018-09-01] MEDS: MELATONIN 5 MG TABLETS PO PRN (21:10)
[2018-09-01] MEDS: THIAMINE HCL 100 MG TABLET (FP) PO SCH (21:10)
[2018-09-01] MEDS: LATANOPROST 0.005% OPHTH SOLN 2.5ML BOTTLE OD SCH (21:43)
[2018-09-02] MEDS: PRENATAL VITAMINS W/ FOLIC ACID TABLET (FP) PO SCH (10:41)
[2018-09-02] MEDS: NICOTINE 21 MG/24 HOURS TOPICAL PATCH TD SCH (10:42)
[2018-09-02 12:32] LABS: HEMATOCRIT 42.5 % (35.4-49); HEMOGLOBIN 14.3 GM/dL (11.7-16.9); MCH 30.8 pg (25.7-33.7); MCHC 33.8 g/dl (32.0-35.9); MEAN CELL VOLUME 91.2 fl (80-96); MEAN PLT VOLUME 9.5 fl (7.5-11.1); PLATELET COUNT 114 K/MM3 (134-434); RBC 4.66 M/mm3 (4.00-5.60); RDW 14.9 % (11.9-15.9); WHITE BLOOD COUNT 3.3 K/mm3 (4.0-10.0)
[2018-09-02 12:40] LABS: ALBUMIN 3.2 g/dl (3.4-5.0); BILIRUBIN,TOTAL 0.7 mg/dL (0.2-1); CALCIUM 8.7 mg/dL (8.5-10.1); CREATININE 1.1 mg/dL (0.55-1.3); POTASSIUM 4.4 mmol/L (3.5-5.1); TOT PROT 7.6 g/dl (6.4-8.2)
[2018-09-02 15:56] LABS: URINE APPEARANCE CLEAR; URINE BILIRUBIN NEGATIVE (NEGATIVE); URINE COLOR YELLOW; URINE GLUCOSE (UA) NEGATIVE (NEGATIVE); URINE KETONE NEGATIVE (NEGATIVE); URINE LEUK ESTERASE NEGATIVE (NEGATIVE); URINE NITRITE NEGATIVE (NEGATIVE); URINE PROTEIN NEGATIVE (NEGATIVE); URINE UROBILINOGEN 0.2 mg/dL (0.2-1.0)
[2018-09-02] MEDS: THIAMINE HCL 100 MG TABLET (FP) PO SCH (22:05)
[2018-09-02] MEDS: MELATONIN 5 MG TABLETS PO PRN (22:05)
[2018-09-02] MEDS: LATANOPROST 0.005% OPHTH SOLN 2.5ML BOTTLE OD SCH (22:54)
[2018-09-03] MEDS: PRENATAL VITAMINS W/ FOLIC ACID TABLET (FP) PO SCH (10:32)
[2018-09-03] MEDS: NICOTINE 21 MG/24 HOURS TOPICAL PATCH TD SCH (10:33)
--- NOTE | 2018-09-03 10:49 | PN ---
[facility] Progress Note Note: ADMISSION LAB RESULTS REVIEW: Vital Signs - 24 hr 09/03/18 09/03/18 09/03/18 00:30 03:30 07:05 Temperature 97.5 F L Pulse Rate 55 L Respiratory 20 18 16 Rate Blood Pressure 132/65 Laboratory Tests 09/02/18 09/02/18 09/02/18 07:30 07:30 07:30 WBC 3.3 L RBC 4.66 Hgb 14.3 Hct 42.5 MCV 91.2 MCH 30.8 MCHC 33.8 RDW 14.9 Plt Count 114 L MPV 9.5 Sodium 136 Potassium 4.4 Chloride 104 Carbon Dioxide 28 Anion Gap 4 L BUN 15 Creatinine 1.1 Est GFR (CKD-EPI)AfAm 81.79 Est GFR (CKD-EPI)NonAf 70.57 Random Glucose 149 H Calcium 8.7 Total Bilirubin 0.7 AST 25 ALT 24 Alkaline Phosphatase 79 Total Protein 7.6 Albumin 3.2 L Urine Color Urine Appearance Urine pH Ur Specific [place] Urine Protein Urine Glucose (UA) Urine Ketones Urine Blood Urine Nitrite Urine Bilirubin Urine Urobilinogen Ur Leukocyte Esterase RPR Titer Nonreactive 09/02/18 12:20 WBC RBC Hgb Hct MCV MCH MCHC RDW Plt Count MPV Sodium Potassium Chloride Carbon Dioxide Anion Gap BUN Creatinine Est GFR (CKD-EPI)AfAm Est GFR (CKD-EPI)NonAf Random Glucose Calcium Total Bilirubin AST ALT Alkaline Phosphatase Total Protein Albumin Urine Color Yellow Urine Appearance Clear Urine pH 6.0 Ur Specific [place] 1.019 Urine Protein Negative Urine Glucose (UA) Negative Urine Ketones Negative Urine Blood Negative Urine Nitrite Negative Urine Bilirubin Negative Urine Urobilinogen 0.2 Ur Leukocyte Esterase Negative RPR Titer ELEVATED GLC DENIES PAST HX OF DM BUT STATES FATHER WITH HX OF DM. PLAN:BGM X 3 DAYS R/O HYPERGLYCEMIA. D/W PT NO SWEETS AFTER 12 MIDNIGHT AND PLAN FOR BGM DIRECTED.
[2018-09-03] MEDS: THIAMINE HCL 100 MG TABLET (FP) PO SCH (21:26)
[2018-09-03] MEDS: MELATONIN 5 MG TABLETS PO PRN (21:26)
[2018-09-03] MEDS: LATANOPROST 0.005% OPHTH SOLN 2.5ML BOTTLE OD SCH (21:27)
[2018-09-04] MEDS: hydrOXYzine PAMOATE 25 MG CAPSULE (FP) PO PRN (07:03)
[2018-09-04] MEDS: IBUPROFEN 400 MG TABLET (FP) PO PRN (07:03)
[2018-09-04] MEDS: PRENATAL VITAMINS W/ FOLIC ACID TABLET (FP) PO SCH (10:41)
[2018-09-04] MEDS: NICOTINE 21 MG/24 HOURS TOPICAL PATCH TD SCH (10:41)
[2018-09-04] MEDS: LATANOPROST 0.005% OPHTH SOLN 2.5ML BOTTLE OD SCH (21:12)
[2018-09-04] MEDS: THIAMINE HCL 100 MG TABLET (FP) PO SCH (21:12)
[2018-09-04] MEDS: MELATONIN 5 MG TABLETS PO PRN (21:12)
[2018-09-05] MEDS: PRENATAL VITAMINS W/ FOLIC ACID TABLET (FP) PO SCH (10:08)
[2018-09-05] MEDS: NICOTINE 21 MG/24 HOURS TOPICAL PATCH TD SCH (10:08)
[2018-09-05] MEDS: LATANOPROST 0.005% OPHTH SOLN 2.5ML BOTTLE OD SCH (22:00)
[2018-09-05] MEDS: THIAMINE HCL 100 MG TABLET (FP) PO SCH (22:00)
[2018-09-05] MEDS: MELATONIN 5 MG TABLETS PO PRN (22:01)
[2018-09-05] MEDS: hydrOXYzine PAMOATE 25 MG CAPSULE (FP) PO PRN (22:02)
[2018-09-06] MEDS: NICOTINE 21 MG/24 HOURS TOPICAL PATCH TD SCH (10:31)
[2018-09-06] MEDS: PRENATAL VITAMINS W/ FOLIC ACID TABLET (FP) PO SCH (10:31)
[2018-09-06] MEDS: THIAMINE HCL 100 MG TABLET (FP) PO SCH (21:55)
[2018-09-06] MEDS: MELATONIN 5 MG TABLETS PO PRN (21:56)
[2018-09-06] MEDS: LATANOPROST 0.005% OPHTH SOLN 2.5ML BOTTLE OD SCH (21:56)
[2018-09-07] MEDS: NICOTINE 21 MG/24 HOURS TOPICAL PATCH TD SCH (10:32)
[2018-09-07] MEDS: PRENATAL VITAMINS W/ FOLIC ACID TABLET (FP) PO SCH (10:32)
[2018-09-07] MEDS: THIAMINE HCL 100 MG TABLET (FP) PO SCH (21:40)
[2018-09-07] MEDS: LATANOPROST 0.005% OPHTH SOLN 2.5ML BOTTLE OD SCH (21:40)
[2018-09-07] MEDS: MELATONIN 5 MG TABLETS PO PRN (21:40)
[2018-09-08] MEDS: IBUPROFEN 400 MG TABLET (FP) PO PRN (06:56)
[2018-09-08] MEDS: hydrOXYzine PAMOATE 25 MG CAPSULE (FP) PO PRN (06:57)
[2018-09-08] MEDS: NICOTINE 21 MG/24 HOURS TOPICAL PATCH TD SCH (10:58)
[2018-09-08] MEDS: PRENATAL VITAMINS W/ FOLIC ACID TABLET (FP) PO SCH (10:58)
[2018-09-08] MEDS: THIAMINE HCL 100 MG TABLET (FP) PO SCH (21:26)
[2018-09-08] MEDS: MELATONIN 5 MG TABLETS PO PRN (21:26)
[2018-09-08] MEDS: LATANOPROST 0.005% OPHTH SOLN 2.5ML BOTTLE OD SCH (21:27)
[2018-09-09] MEDS: hydrOXYzine PAMOATE 25 MG CAPSULE (FP) PO PRN (06:46)
[2018-09-09] MEDS: IBUPROFEN 400 MG TABLET (FP) PO PRN (06:46)
[2018-09-09 07:04] VITALS: BP 127/71; PULSE 70; TEMP 97.4
[2018-09-09] MEDS: NICOTINE 21 MG/24 HOURS TOPICAL PATCH TD SCH (10:02)
[2018-09-09] MEDS: PRENATAL VITAMINS W/ FOLIC ACID TABLET (FP) PO SCH (10:02)
--- NOTE | 2018-09-09 10:31 | PN ---
[facility] Progress Note Note: PT COMPLETED REHAB AND DISCHARGED TODAY. PT WAS SEEN BY HIS COUNSELOR, MS JI HORAN AND HAS BEEN REFERRED TO [facility] ON [phone] FOR CD AFTERCARE. PT REPORTS PRIMARY CARE WITH DR. NELSON AT [place], [place]. PT IS ALERT O X 3. DENIES S/H/I. Home Medications Medication Instructions Recorded Risperidone [Risperdal -] 1 mg PO BID #60 tablet 04/17/18 traZODone HCL [Trazodone HCl] 100 mg PO HS 06/03/18 Latanoprost 0.005% Eye Drops 1 drop OD HS 07/04/18 [Xalatan 0.005% Eye Drops -] Vital Signs - 24 hr 09/09/18 09/09/18 09/09/18 00:30 03:30 07:03 Temperature 97.4 F L Pulse Rate 70 Respiratory 18 18 16 Rate Blood Pressure 127/71 Laboratory Tests 09/02/18 09/02/18 09/02/18 07:30 07:30 07:30 WBC 3.3 L RBC 4.66 Hgb 14.3 Hct 42.5 MCV 91.2 MCH 30.8 MCHC 33.8 RDW 14.9 Plt Count 114 L MPV 9.5 Sodium 136 Potassium 4.4 Chloride 104 Carbon Dioxide 28 Anion Gap 4 L BUN 15 Creatinine 1.1 Est GFR (CKD-EPI)AfAm 81.79 Est GFR (CKD-EPI)NonAf 70.57 POC Glucometer Random Glucose 149 H Hemoglobin A1c % Calcium 8.7 Total Bilirubin 0.7 AST 25 ALT 24 Alkaline Phosphatase 79 Total Protein 7.6 Albumin 3.2 L Urine Color Urine Appearance Urine pH Ur Specific [place] Urine Protein Urine Glucose (UA) Urine Ketones Urine Blood Urine Nitrite Urine Bilirubin Urine Urobilinogen Ur Leukocyte Esterase RPR Titer Nonreactive 09/02/18 09/04/18 09/05/18 12:20 07:00 08:04 WBC RBC Hgb Hct MCV MCH MCHC RDW Plt Count MPV Sodium Potassium Chloride Carbon Dioxide Anion Gap BUN Creatinine Est GFR (CKD-EPI)AfAm Est GFR (CKD-EPI)NonAf POC Glucometer 128 Random Glucose Hemoglobin A1c % 5.5 Calcium Total Bilirubin AST ALT Alkaline Phosphatase Total Protein Albumin Urine Color Yellow Urine Appearance Clear Urine pH 6.0 Ur Specific [place] 1.019 Urine Protein Negative Urine Glucose (UA) Negative Urine Ketones Negative Urine Blood Negative Urine Nitrite Negative Urine Bilirubin Negative Urine Urobilinogen 0.2 Ur Leukocyte Esterase Negative RPR Titer 09/07/18 09/08/18 09/09/18 06:36 06:54 06:43 WBC RBC Hgb Hct MCV MCH MCHC RDW Plt Count MPV Sodium Potassium Chloride Carbon Dioxide Anion Gap BUN Creatinine Est GFR (CKD-EPI)AfAm Est GFR (CKD-EPI)NonAf POC Glucometer 107 120 126 Random Glucose Hemoglobin A1c % Calcium Total Bilirubin AST ALT Alkaline Phosphatase Total Protein Albumin Urine Color Urine Appearance Urine pH Ur Specific [place] Urine Protein Urine Glucose (UA) Urine Ketones Urine Blood Urine Nitrite Urine Bilirubin Urine Urobilinogen Ur Leukocyte Esterase RPR Titer NAD MEDICALLY STABLE PLAN:FOLLOW UP WITH CD AFTERCARE RECOMMENDED AT [facility] ON AT 12 P.M. FOLLOW UP WITH MEDICAL MANAGEMENT WITHIN 1-2 WEEKS AFTER DISCHARGE WITH PCP AT [facility].
== END 2018-09-09 11:25 | disposition home or self-care (01) | DRG 772 ==
LOC: YASAS 17:20 → Y5N 21:19
PROVIDERS: ADMIT Neuromusculoskeletal Medicine & OMM; ATTEND Neuromusculoskeletal Medicine & OMM
PROC: HZ42ZZZ Group Counseling for Substance Abuse Treatment, Cognitive-Behavioral (ICD-10-PCS; principal; 2018-08-27)
DX: F10.20 Alcohol dependence, uncomplicated (principal); F14.20 Cocaine dependence, uncomplicated; F17.210 Nicotine dependence, cigarettes, uncomplicated; F41.9 Anxiety disorder, unspecified; F31.81 Bipolar II disorder; B20 Human immunodeficiency virus [HIV] disease; H40.9 Unspecified glaucoma; B18.2 Chronic viral hepatitis C; R73.03 Prediabetes; H54.40 Blindness, one eye, unspecified eye; Z91.013 Allergy to seafood; Z91.19 Patient's noncompliance with other medical treatment and regimen
CPT/HCPCS: 36415; 80053; 81003; 82962; 83036; 85027; 86593

== ENCOUNTER 2018-09-25 11:39 | Inpatient (IN) | payer OTHER ==
[2018-09-25 12:49] VITALS: BMI 23.1
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
[2018-09-25] MEDS ORDERED: MENTHOL/PHENOL 1 EACH UD MM PRN (18:27)
[2018-09-25] MEDS ORDERED: LOPERAMIDE HCL 2 MG CAPSULE PO PRN (18:27)
[2018-09-25] MEDS ORDERED: MAGNESIUM HYDROX 2400MG/30ML ORAL SUSPENSION 30 ML CUP PO PRN (18:27)
[2018-09-25] MEDS ORDERED: guaiFENesin 200 MG/10 ML 10 ML UNIT-DOSE CUPS PO PRN (18:27)
[2018-09-25] MEDS ORDERED: ACETAMINOPHEN 325 MG TABLET (FP) PO PRN (18:27)
[2018-09-25] MEDS ORDERED: P-EPHED 60MG/TRIPROLIDI 2.5MG TABLET PO PRN (18:27)
[2018-09-25] MEDS ORDERED: MAGNESIUM CITRATE 300 ML BOTTLE PO PRN (18:27)
[2018-09-25] MEDS ORDERED: IBUPROFEN 400 MG TABLET (FP) PO PRN (18:27)
[2018-09-25] MEDS ORDERED: MAG HYDROX/AL HYDROX/SIMETH 30 ML UNIT-DOSE CUP PO PRN (18:27)
[2018-09-25] MEDS: THIAMINE HCL 100 MG TABLET (FP) PO SCH (21:55)
[2018-09-25] MEDS: MELATONIN 5 MG TABLETS PO PRN (21:55)
[2018-09-25] MEDS: GABAPENTIN 100 MG CAPSULE (FP) PO SCH (21:55)
[2018-09-25] MEDS: LATANOPROST 0.005% OPHTH SOLN 2.5ML BOTTLE OD SCH (21:56)
[2018-09-26 01:01] LABS: URINE APPEARANCE CLEAR; URINE BILIRUBIN NEGATIVE (NEGATIVE); URINE COLOR YELLOW; URINE GLUCOSE (UA) NEGATIVE (NEGATIVE); URINE KETONE TRACE (NEGATIVE); URINE LEUK ESTERASE NEGATIVE (NEGATIVE); URINE NITRITE NEGATIVE (NEGATIVE); URINE PROTEIN TRACE (NEGATIVE); URINE UROBILINOGEN 0.2 mg/dL (0.2-1.0)
[2018-09-26] MEDS: GABAPENTIN 100 MG CAPSULE (FP) PO SCH ×3 (06:42→21:44)
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
[2018-09-26 10:05] LABS: HEMATOCRIT 41.3 % (35.4-49); HEMOGLOBIN 14.1 GM/dL (11.7-16.9); MCH 30.6 pg (25.7-33.7); MCHC 34.1 g/dl (32.0-35.9); MEAN CELL VOLUME 89.7 fl (80-96); PLATELET COUNT 129 K/MM3 (134-434); RBC 4.61 M/mm3 (4.00-5.60); RDW 13.6 % (11.9-15.9); WHITE BLOOD COUNT 2.8 K/mm3 (4.0-10.0)
[2018-09-26] MEDS: PRENATAL VITAMINS W/ FOLIC ACID TABLET (FP) PO SCH (10:20)
[2018-09-26 10:22] LABS: ALBUMIN 3.3 g/dl (3.4-5.0); CALCIUM 8.7 mg/dL (8.5-10.1); CREATININE 1.1 mg/dL (0.55-1.3); POTASSIUM 4.2 mmol/L (3.5-5.1); TOT PROT 8.1 g/dl (6.4-8.2)
[2018-09-26] MEDS: risperiDONE 1 MG TABLET (FP) PO SCH ×2 (12:43→21:44)
[2018-09-26] MEDS: THIAMINE HCL 100 MG TABLET (FP) PO SCH (21:44)
[2018-09-26] MEDS: traZODone HCL 100 MG TABLET (FP) PO SCH (21:44)
[2018-09-26] MEDS: LATANOPROST 0.005% OPHTH SOLN 2.5ML BOTTLE OD SCH (21:45)
[2018-09-27] MEDS: GABAPENTIN 100 MG CAPSULE (FP) PO SCH ×3 (06:50→21:57)
[2018-09-27] MEDS: PRENATAL VITAMINS W/ FOLIC ACID TABLET (FP) PO SCH (10:17)
[2018-09-27] MEDS: risperiDONE 1 MG TABLET (FP) PO SCH ×2 (10:17→21:57)
[2018-09-27] MEDS: LATANOPROST 0.005% OPHTH SOLN 2.5ML BOTTLE OD SCH (21:57)
[2018-09-27] MEDS: THIAMINE HCL 100 MG TABLET (FP) PO SCH (21:57)
[2018-09-27] MEDS: traZODone HCL 100 MG TABLET (FP) PO SCH (21:57)
[2018-09-27] MEDS: MELATONIN 5 MG TABLETS PO PRN (21:57)
[2018-09-28] MEDS: GABAPENTIN 100 MG CAPSULE (FP) PO SCH ×3 (06:13→21:49)
[2018-09-28] MEDS: risperiDONE 1 MG TABLET (FP) PO SCH ×2 (10:11→21:49)
[2018-09-28] MEDS: PRENATAL VITAMINS W/ FOLIC ACID TABLET (FP) PO SCH (10:11)
[2018-09-28] MEDS: traZODone HCL 100 MG TABLET (FP) PO SCH (21:49)
[2018-09-28] MEDS: LATANOPROST 0.005% OPHTH SOLN 2.5ML BOTTLE OD SCH (21:49)
[2018-09-28] MEDS: THIAMINE HCL 100 MG TABLET (FP) PO SCH (21:49)
[2018-09-29] MEDS: GABAPENTIN 100 MG CAPSULE (FP) PO SCH ×3 (06:01→21:38)
[2018-09-29] MEDS: risperiDONE 1 MG TABLET (FP) PO SCH ×2 (10:47→21:38)
[2018-09-29] MEDS: PRENATAL VITAMINS W/ FOLIC ACID TABLET (FP) PO SCH (10:47)
[2018-09-29] MEDS: traZODone HCL 100 MG TABLET (FP) PO SCH (21:38)
[2018-09-29] MEDS: LATANOPROST 0.005% OPHTH SOLN 2.5ML BOTTLE OD SCH (21:38)
[2018-09-29] MEDS: MELATONIN 5 MG TABLETS PO PRN (21:38)
[2018-09-29] MEDS: THIAMINE HCL 100 MG TABLET (FP) PO SCH (21:38)
[2018-09-30] MEDS: GABAPENTIN 100 MG CAPSULE (FP) PO SCH ×3 (06:17→21:51)
[2018-09-30] MEDS: risperiDONE 1 MG TABLET (FP) PO SCH ×2 (10:52→21:51)
[2018-09-30] MEDS: PRENATAL VITAMINS W/ FOLIC ACID TABLET (FP) PO SCH (10:52)
[2018-09-30] MEDS: traZODone HCL 100 MG TABLET (FP) PO SCH (21:51)
[2018-09-30] MEDS: THIAMINE HCL 100 MG TABLET (FP) PO SCH (21:51)
[2018-09-30] MEDS: LATANOPROST 0.005% OPHTH SOLN 2.5ML BOTTLE OD SCH (21:52)
[2018-10-01 06:47] VITALS: BP 112/75; PULSE 80; TEMP 97.8
[2018-10-01] MEDS: GABAPENTIN 100 MG CAPSULE (FP) PO SCH ×2 (07:10→14:21)
[2018-10-01] MEDS: risperiDONE 1 MG TABLET (FP) PO SCH (10:20)
[2018-10-01] MEDS: PRENATAL VITAMINS W/ FOLIC ACID TABLET (FP) PO SCH (10:20)
--- NOTE | 2018-10-01 13:59 | PN ---
S Progress Note Note: Asked by nursing staff to electronically transmit script for 30 days supply of medicaions(Risperdal 1 mg/bid, Trazadone 100 mg/hs)to [facility] for patient leaving AMA
--- NOTE | 2018-10-01 15:37 | PN ---
[facility] Progress Note (SOAP) Subjective: PT DECLINED TO CONTINUE REHAB FOR PERSONAL REASONS. PT UNABLE TO SAY WHY HE WANTS TO LEAVE AND SAID "I JUST WANT TO LEAVE". PT WAS INSTRUCTED TO MEET WITH HIS COUNSELOR AND PT STATES HE DOES NOT NEED TO AND JUST WANTS TO LEAVE. HOWEVER , PT WAS SEEN BY HIS COUNSELOR AND REFERRAL PACKAGE TO [facility] FOR AFTERCARE GIVEN TO PT AND ENCOURAGED TO FOLLOW UP. PT REPORTS HE HAS A PCP DR LARKIN AT [facility] ON [phone] [place], [place] FOR MEDICAL MANAGEMENT. PT IS ALERT O X 3. DENIES S/H/I. Objective: 10/01/18 15:36 Vital Signs - 24 hr 10/01/18 10/01/18 10/01/18 00:30 03:30 06:45 Temperature 97.8 F Pulse Rate 80 Respiratory 18 18 16 Rate Blood Pressure 112/75 Laboratory Tests 09/25/18 09/26/18 09/26/18 21:30 07:25 07:25 WBC RBC Hgb Hct MCV MCH MCHC RDW Plt Count MPV Sodium 139 Potassium 4.2 Chloride 105 Carbon Dioxide 30 Anion Gap 5 L BUN 11 Creatinine 1.1 Est GFR (CKD-EPI)AfAm 81.79 Est GFR (CKD-EPI)NonAf 70.57 Random Glucose 137 H Calcium 8.7 Total Bilirubin 1.0 AST 45 H ALT 38 Alkaline Phosphatase 72 Total Protein 8.1 Albumin 3.3 L Urine Color Yellow Urine Appearance Clear Urine pH 5.0 Ur Specific [place] 1.029 Urine Protein Trace Urine Glucose (UA) Negative Urine Ketones Trace H Urine Blood Negative Urine Nitrite Negative Urine Bilirubin Negative Urine Urobilinogen 0.2 Ur Leukocyte Esterase Negative RPR Titer Nonreactive 09/26/18 07:40 WBC 2.8 L RBC 4.61 Hgb 14.1 Hct 41.3 MCV 89.7 MCH 30.6 MCHC 34.1 RDW 13.6 Plt Count 129 L MPV 9.0 Sodium Potassium Chloride Carbon Dioxide Anion Gap BUN Creatinine Est GFR (CKD-EPI)AfAm Est GFR (CKD-EPI)NonAf Random Glucose Calcium Total Bilirubin AST ALT Alkaline Phosphatase Total Protein Albumin Urine Color Urine Appearance Urine pH Ur Specific [place] Urine Protein Urine Glucose (UA) Urine Ketones Urine Blood Urine Nitrite Urine Bilirubin Urine Urobilinogen Ur Leukocyte Esterase RPR Titer Home Medications Medication Instructions Recorded traZODone HCL [Trazodone HCl] 100 mg PO HS 06/03/18 Latanoprost 0.005% Eye Drops 1 drop OD HS 07/04/18 [Xalatan 0.005% Eye Drops -] Risperidone [Risperdal -] 1 mg PO BID #60 tablet 10/01/18 traZODone HCL [Desyrel -] 100 mg PO HS #30 tablet 10/01/18 Assessment: 10/01/18 15:37 NAD Plan: PT SIGNED OUT AMA FOLLOW UP WITH [facility] AFTERCARE RECOMMENDATIONS. FOLLOW UP WITH PCP AT [facility] WITHIN 1 WEEK AFTER DISCHARGE.
== END 2018-10-01 13:35 | disposition left against medical advice (07) | DRG 770 ==
LOC: YASAS 11:39 → Y5N 19:10
PROVIDERS: ADMIT Neuromusculoskeletal Medicine & OMM; ATTEND Neuromusculoskeletal Medicine & OMM
PROC: HZ42ZZZ Group Counseling for Substance Abuse Treatment, Cognitive-Behavioral (ICD-10-PCS; principal; 2018-09-25)
DX: F10.20 Alcohol dependence, uncomplicated (principal); F14.20 Cocaine dependence, uncomplicated; F17.210 Nicotine dependence, cigarettes, uncomplicated; F25.9 Schizoaffective disorder, unspecified; F31.9 Bipolar disorder, unspecified; F41.9 Anxiety disorder, unspecified; B20 Human immunodeficiency virus [HIV] disease; H54.62 Unqualified visual loss, left eye, normal vision right eye; H40.9 Unspecified glaucoma; B18.2 Chronic viral hepatitis C; R63.4 Abnormal weight loss; Z68.23 Body mass index [BMI] 23.0-23.9, adult; S05.72XS Avulsion of left eye, sequela; W34.00XS Accidental discharge from unspecified firearms or gun, sequela; Z91.013 Allergy to seafood
CPT/HCPCS: 36415; 80053; 81003; 85027; 86593; J2794

== ENCOUNTER 2018-12-01 09:12 | Inpatient (IN) | payer OTHER | END 2018-12-04 12:04 | disposition home or self-care (01) | LOC: YASAS 09:12 → Y6N 13:56 ==

== ENCOUNTER 2018-12-25 08:14 | Inpatient (IN) | payer OTHER ==
[2018-12-25 08:38] VITALS: BMI 27.1
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
[2018-12-25] MEDS ORDERED: MENTHOL/PHENOL 1 EACH UD MM PRN (09:38)
[2018-12-25] MEDS ORDERED: MAGNESIUM CITRATE 300 ML BOTTLE PO PRN (09:38)
[2018-12-25] MEDS ORDERED: MAG HYDROX/AL HYDROX/SIMETH 30 ML UNIT-DOSE CUP PO PRN (09:38)
[2018-12-25] MEDS ORDERED: MAGNESIUM HYDROX 2400MG/30ML ORAL SUSPENSION 30 ML CUP PO PRN (09:38)
[2018-12-25] MEDS ORDERED: ACETAMINOPHEN 325 MG TABLET (FP) PO PRN ×2 (09:38)
[2018-12-25] MEDS ORDERED: IBUPROFEN 400 MG TABLET (FP) PO PRN (09:38)
[2018-12-25] MEDS ORDERED: BISMUTH SUBSALICYLATE 262 MG/15 ML BTL PO PRN (09:38)
[2018-12-25] MEDS ORDERED: hydrOXYzine PAMOATE 25 MG CAPSULE (FP) PO PRN (09:38)
[2018-12-25] MEDS ORDERED: METHOCARBAMOL 500 MG TABLET PO PRN (09:38)
[2018-12-25] MEDS: PRENATAL VITAMINS W/ FOLIC ACID TABLET (FP) PO SCH (11:07)
[2018-12-25] MEDS: diazePAM 5 MG TABLET PO PRN (11:07)
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
[2018-12-25] MEDS: diazePAM 5 MG TABLET PO SCH ×2 (14:56→22:21)
[2018-12-25] MEDS: THIAMINE HCL 100 MG TABLET (FP) PO SCH (22:21)
[2018-12-25] MEDS: LATANOPROST 0.005% OPHTH SOLN 2.5ML BOTTLE OD SCH (22:21)
[2018-12-25] MEDS: traZODone HCL 100 MG TABLET (FP) PO SCH (22:21)
[2018-12-25] MEDS: risperiDONE 1 MG TABLET (FP) PO SCH (22:21)
[2018-12-25] MEDS: MELATONIN 5 MG TABLETS PO PRN (22:22)
[2018-12-25] MEDS: NICOTINE POLACRILEX 2 MG GUM BUC PRN (22:23)
[2018-12-26] MEDS: diazePAM 5 MG TABLET PO SCH ×3 (05:43→21:59)
[2018-12-26] MEDS: risperiDONE 1 MG TABLET (FP) PO SCH ×2 (10:22→21:59)
[2018-12-26] MEDS: PRENATAL VITAMINS W/ FOLIC ACID TABLET (FP) PO SCH (10:22)
[2018-12-26] MEDS: NICOTINE POLACRILEX 2 MG GUM BUC PRN (10:23)
--- NOTE | 2018-12-26 13:46 | PN ---
[facility] CIWA - CIWA Score Nausea/Vomitin-No Nausea/No Vomiting Muscle Tremors: 3 Anxiety: 3 Agitation: 0-Normal Activity Paroxysmal Sweats: No Perspiration Orientation: 2-Disoriented Date<2 days Tacttile Disturbances: 1-Very Mild Itch/Numbness Auditory Disturbances: 0-None Visual Disturbances: 2-Mild Sensitivity Headache: 0-None Present CIWA-Ar Total Score: 11 [facility] Progress Note (SOAP) Subjective: Tremors, Fatigue, Anxious, Diarrhea. Objective: PATIENT A & O X 2 (UNCERTAIN ABOUT CURRENT DAY / DATE). PATIENT OBSERVED AMBULATING ON UNIT UNASSISTED. IN NO ACUTE DISTRESS. 12/26/18 13:42 Vital Signs Temperature 97.3 F L 12/26/18 13:36 Pulse Rate 55 L 12/26/18 13:36 Respiratory Rate 18 12/26/18 13:36 Blood Pressure 127/80 12/26/18 13:36 O2 Sat by Pulse Oximetry (%) RESULTS OF LABS FROM 12/01/2018 NOTED. 12/26/18 13:44 Assessment: 12/26/18 13:45 WITHDRAWAL SYMPTOMS. Plan: CONTINUE DETOX. INCREASE DAILY PO WATER INTAKE. PRN PEPTO-BISMOL PO FOR DIARRHEA.
[2018-12-26] MEDS: THIAMINE HCL 100 MG TABLET (FP) PO SCH (21:59)
[2018-12-26] MEDS: LATANOPROST 0.005% OPHTH SOLN 2.5ML BOTTLE OD SCH (21:59)
[2018-12-26] MEDS: traZODone HCL 100 MG TABLET (FP) PO SCH (21:59)
[2018-12-27] MEDS: diazePAM 5 MG TABLET PO PRN (03:47)
[2018-12-27] MEDS: diazePAM 5 MG TABLET PO SCH ×2 (05:58→18:21)
[2018-12-27] MEDS: PRENATAL VITAMINS W/ FOLIC ACID TABLET (FP) PO SCH (10:20)
[2018-12-27] MEDS: risperiDONE 1 MG TABLET (FP) PO SCH ×2 (10:20→22:12)
[2018-12-27] MEDS: NICOTINE POLACRILEX 2 MG GUM BUC PRN (10:21)
--- NOTE | 2018-12-27 14:56 | PN ---
S CIWA - CIWA Score Nausea/Vomitin-No Nausea/No Vomiting Muscle Tremors: 3 Anxiety: 3 Agitation: 2 Paroxysmal Sweats: No Perspiration Orientation: 0-Oriented Tacttile Disturbances: 0-None Auditory Disturbances: 0-None Visual Disturbances: 2-Mild Sensitivity Headache: 0-None Present CIWA-Ar Total Score: 10 S Progress Note (SOAP) Subjective: Tremors, Fatigue, Anxious. Objective: PATIENT A & O X 3, OBSERVED AMBULATING ON DETOX UNIT UNASSISTED. IN NO ACUTE DISTRESS. 12/27/18 14:55 Vital Signs Temperature 97.6 F 12/27/18 13:27 Pulse Rate 55 L 12/27/18 13:27 Respiratory Rate 18 12/27/18 13:27 Blood Pressure 142/79 12/27/18 13:27 O2 Sat by Pulse Oximetry (%) RESULTS OF LABS FROM 12/01/2018 NOTED. 12/27/18 14:56 Assessment: 12/27/18 14:56 WITHDRAWAL SYMPTOMS. Plan: CONTINUE DETOX. PATIENT SCHEDULED FOR D/C FROM DETOX UNIT TOMORROW.
[2018-12-27] MEDS: MELATONIN 5 MG TABLETS PO PRN (22:12)
[2018-12-27] MEDS: LATANOPROST 0.005% OPHTH SOLN 2.5ML BOTTLE OD SCH (22:12)
[2018-12-27] MEDS: traZODone HCL 100 MG TABLET (FP) PO SCH (22:12)
[2018-12-27] MEDS: THIAMINE HCL 100 MG TABLET (FP) PO SCH (22:12)
[2018-12-28] MEDS ORDERED: diazePAM 5 MG TABLET PO ONE (06:00)
[2018-12-28 09:51] VITALS: BP 133/82; PULSE 72; TEMP 97.5
--- NOTE | 2018-12-28 13:19 | DS ---
[facility] Detox Discharge Summary Admission Date: 12/25/18 Discharge Date: 12/28/18 - History Present History: Alcohol Dependence Additional Comments: 63 years old male multiple patient [facility], [place], operated by [facility] admission since 2013 was admitted on 12/25/18 for alcohol withdrawal sx management doing well with libirum detox regimen no complication through out the detox stay alert oriented x 3 S1S2 regular rate rhythm clear lung bilaterally on auscultation abdomen soft no rebound tenderness - Physical Exam Results Vital Signs: Vital Signs Temperature 97.5 F L 12/28/18 09:51 Pulse Rate 72 12/28/18 09:51 Respiratory Rate 18 12/28/18 09:51 Blood Pressure 133/82 12/28/18 09:51 O2 Sat by Pulse Oximetry (%) Pertinent Admission Physical Exam Findings: alcohol withdrawal sx lab see 12/01/2018 lab result - Treatment Hospital Course: Detox Protocol Followed, Detoxed Safely, Responded well, Discharged Condition Good, Rehab Referral Accepted Patient has Accepted a Rehab Referral to: [facility] - Medication Discharge Medications: Ambulatory Orders traZODone HCL [Trazodone HCl] 150 mg PO HS 06/03/18 Latanoprost 0.005% Eye Drops [Xalatan 0.005% Eye Drops -] 1 drop OD HS 07/04/18 Risperidone [Risperdal -] 1 mg PO BID #60 tablet 10/01/18 - Diagnosis (1) Alcohol dependence with uncomplicated withdrawal Status: Acute (2) Substance induced mood disorder Status: Suspected (3) Acquired immune deficiency syndrome (AIDS) Status: Chronic (4) Glaucoma, right eye Status: Chronic Qualifiers: Glaucoma type: unspecified Qualified Code(s): H40.9 - Unspecified glaucoma (5) HEP-C Status: Chronic (6) Nicotine dependence Status: Acute Qualifiers: Nicotine product type: cigarettes Substance use status: in withdrawal Qualified Code(s): F17.213 - Nicotine dependence, cigarettes, with withdrawal - AMA Did Patient Leave Against Medical Advice: No CIWA Score - CIWA Score Nausea/Vomitin-No Nausea/No Vomiting Muscle Tremors: 2 Anxiety: 2 Agitation: 1-Slight > Activity Paroxysmal Sweats: No Perspiration Orientation: 0-Oriented Tacttile Disturbances: 0-None Auditory Disturbances: 0-None Visual Disturbances: 1-Very Mild Sensitivity Headache: 0-None Present CIWA-Ar Total Score: 6
== END 2018-12-28 09:29 | disposition home or self-care (01) | DRG 774 ==
LOC: YASAS 08:14 → Y3N 10:02
PROVIDERS: ADMIT Surgery; ATTEND Surgery
PROC: HZ2ZZZZ Detoxification Services for Substance Abuse Treatment (ICD-10-PCS; principal; 2018-12-25)
DX: F10.230 Alcohol dependence with withdrawal, uncomplicated (principal); F10.220 Alcohol dependence with intoxication, uncomplicated; F14.20 Cocaine dependence, uncomplicated; F17.210 Nicotine dependence, cigarettes, uncomplicated; F19.24 Other psychoactive substance dependence with psychoactive substance-induced mood disorder; B20 Human immunodeficiency virus [HIV] disease; H40.9 Unspecified glaucoma; B18.2 Chronic viral hepatitis C; G62.9 Polyneuropathy, unspecified; Z91.013 Allergy to seafood
CPT/HCPCS: J2794

== ENCOUNTER 2019-01-12 10:06 | Inpatient (IN) | payer OTHER ==
[2019-01-12 11:02] VITALS: BMI 27.7
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
[2019-01-12] MEDS ORDERED: hydrOXYzine PAMOATE 25 MG CAPSULE (FP) PO PRN (12:39)
[2019-01-12] MEDS ORDERED: MAGNESIUM HYDROX 2400MG/30ML ORAL SUSPENSION 30 ML CUP PO PRN (12:39)
[2019-01-12] MEDS ORDERED: MAGNESIUM CITRATE 300 ML BOTTLE PO PRN (12:39)
[2019-01-12] MEDS ORDERED: MENTHOL/PHENOL 1 EACH UD MM PRN (12:39)
[2019-01-12] MEDS ORDERED: chlordiazePOXIDE HCL 25 MG CAPSULE PO PRN (12:39)
[2019-01-12] MEDS ORDERED: MELATONIN 5 MG TABLETS PO PRN (12:39)
[2019-01-12] MEDS ORDERED: IBUPROFEN 400 MG TABLET (FP) PO PRN (12:39)
[2019-01-12] MEDS ORDERED: MAG HYDROX/AL HYDROX/SIMETH 30 ML UNIT-DOSE CUP PO PRN (12:39)
[2019-01-12] MEDS ORDERED: ACETAMINOPHEN 325 MG TABLET (FP) PO PRN ×2 (12:39)
[2019-01-12] MEDS ORDERED: BISMUTH SUBSALICYLATE 262 MG/15 ML BTL PO PRN (12:39)
[2019-01-12] MEDS ORDERED: METHOCARBAMOL 500 MG TABLET PO PRN (12:39)
[2019-01-12] MEDS ORDERED: traZODone HCL 50 MG TABLET (FP) PO ONE ×2 (14:00→22:00)
[2019-01-12] MEDS ORDERED: risperiDONE 1 MG TABLET (FP) PO ONE (14:00)
[2019-01-12] MEDS ORDERED: traZODone HCL 100 MG TABLET (FP) PO ONE (14:00)
[2019-01-12 14:54] LABS: HEMOGLOBIN 14.7 GM/dL (11.7-16.9); MCH 29.6 pg (25.7-33.7); MCHC 34.1 g/dl (32.0-35.9); MEAN CELL VOLUME 86.6 fl (80-96); MEAN PLT VOLUME 8.9 fl (7.5-11.1); PLATELET COUNT 142 K/MM3 (134-434); RBC 4.96 M/mm3 (4.00-5.60); RDW 15.2 % (11.9-15.9)
[2019-01-12] MEDS: NICOTINE 14 MG/24 HOURS TOPICAL PATCH TD SCH (14:55)
[2019-01-12 15:06] LABS: ALBUMIN 3.9 g/dl (3.4-5.0); BILIRUBIN,TOTAL 1.3 mg/dL (0.2-1); CALCIUM 9.6 mg/dL (8.5-10.1); CREATININE 1.2 mg/dL (0.55-1.3); POTASSIUM 4.2 mmol/L (3.5-5.1)
[2019-01-12] MEDS: chlordiazePOXIDE HCL 25 MG CAPSULE PO SCH ×2 (18:57→23:15)
[2019-01-12] MEDS: LATANOPROST 0.005% OPHTH SOLN 2.5ML BOTTLE OD SCH (22:13)
[2019-01-12] MEDS: THIAMINE HCL 100 MG TABLET (FP) PO SCH (22:13)
[2019-01-13] MEDS: chlordiazePOXIDE HCL 25 MG CAPSULE PO SCH ×4 (07:27→22:09)
--- NOTE | 2019-01-13 09:00 | CONSULT ---
[facility] Psychiatric Consult - Data Date of interview: 01/13/19 Psychiatric History: Patient approached at bedside. He declined to be seen
[2019-01-13] MEDS: NICOTINE 14 MG/24 HOURS TOPICAL PATCH TD SCH (10:04)
[2019-01-13] MEDS: PRENATAL VITAMINS W/ FOLIC ACID TABLET (FP) PO SCH (10:04)
--- NOTE | 2019-01-13 10:26 | PN ---
[facility] CIWA - CIWA Score Nausea/Vomitin-No Nausea/No Vomiting Muscle Tremors: 3 Anxiety: 3 Agitation: 3 Paroxysmal Sweats: 2 Orientation: 0-Oriented Tacttile Disturbances: 0-None Auditory Disturbances: 0-None Visual Disturbances: 0-None Headache: 0-None Present CIWA-Ar Total Score: 11 S Progress Note (SOAP) Subjective: irritable agitation tired interrupted sleep Objective: 01/13/19 10:25 Vital Signs Temperature 97.7 F 01/13/19 09:57 Pulse Rate 69 01/13/19 09:57 Respiratory Rate 18 01/13/19 09:57 Blood Pressure 121/66 01/13/19 09:57 O2 Sat by Pulse Oximetry (%) Laboratory Tests 01/12/19 01/12/19 01/12/19 12:50 12:50 12:50 WBC 4.0 RBC 4.96 Hgb 14.7 Hct 43.0 MCV 86.6 MCH 29.6 MCHC 34.1 RDW 15.2 Plt Count 142 MPV 8.9 Sodium 134 L Potassium 4.2 Chloride 99 Carbon Dioxide 27 Anion Gap 8 BUN 27.0 H Creatinine 1.2 Est GFR (CKD-EPI)AfAm 73.11 Est GFR (CKD-EPI)NonAf 63.08 Random Glucose 109 H Calcium 9.6 Total Bilirubin 1.3 H AST 49 H ALT 35 Alkaline Phosphatase 55 Total Protein 9.0 H Albumin 3.9 RPR Titer Nonreactive labs noted aaox3 ambulating no acute distress Assessment: 01/13/19 10:25 withdrawals sx Plan: continue detox increase fluids
[2019-01-13] MEDS: THIAMINE HCL 100 MG TABLET (FP) PO SCH (22:09)
[2019-01-13] MEDS: LATANOPROST 0.005% OPHTH SOLN 2.5ML BOTTLE OD SCH (22:10)
[2019-01-14] MEDS: chlordiazePOXIDE HCL 25 MG CAPSULE PO SCH ×3 (06:10→18:05)
[2019-01-14] MEDS: PRENATAL VITAMINS W/ FOLIC ACID TABLET (FP) PO SCH (10:44)
[2019-01-14] MEDS: NICOTINE 14 MG/24 HOURS TOPICAL PATCH TD SCH (10:44)
--- NOTE | 2019-01-14 13:35 | PN ---
S CIWA - CIWA Score Nausea/Vomitin-No Nausea/No Vomiting Muscle Tremors: 3 Anxiety: 2 Agitation: 2 Paroxysmal Sweats: 1-Minimal Palms Moist Orientation: 0-Oriented Tacttile Disturbances: 0-None Auditory Disturbances: 0-None Visual Disturbances: 0-None Headache: 0-None Present CIWA-Ar Total Score: 8 S Progress Note (SOAP) Subjective: irritable tired body aches Objective: 01/14/19 13:30 Vital Signs Temperature 97.7 F 01/14/19 12:51 Pulse Rate 80 01/14/19 12:51 Respiratory Rate 18 01/14/19 12:51 Blood Pressure 124/92 01/14/19 12:51 O2 Sat by Pulse Oximetry (%) Laboratory Tests 01/12/19 01/12/19 01/12/19 12:50 12:50 12:50 WBC 4.0 RBC 4.96 Hgb 14.7 Hct 43.0 MCV 86.6 MCH 29.6 MCHC 34.1 RDW 15.2 Plt Count 142 MPV 8.9 Sodium 134 L Potassium 4.2 Chloride 99 Carbon Dioxide 27 Anion Gap 8 BUN 27.0 H Creatinine 1.2 Est GFR (CKD-EPI)AfAm 73.11 Est GFR (CKD-EPI)NonAf 63.08 Random Glucose 109 H Calcium 9.6 Total Bilirubin 1.3 H AST 49 H ALT 35 Alkaline Phosphatase 55 Total Protein 9.0 H Albumin 3.9 RPR Titer Nonreactive labs noted aaox3 ambulating no acute distress Assessment: 01/14/19 13:35 withdrawals sx Plan: continue detox increase fluids
[2019-01-14 17:24] VITALS: BP 148/95; PULSE 87; TEMP 97.6
--- NOTE | 2019-01-14 18:52 | DS ---
[facility] Detox Discharge Summary Admission Date: 01/12/19 Discharge Date: 01/14/19 - History Present History: Alcohol Dependence Additional Comments: Patient admitted w/alcohol withdrawal symptoms. 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 Laboratory Last Values WBC 4.0 K/mm3 (4.0-10.0) 01/12/19 12:50 RBC 4.96 M/mm3 (4.00-5.60) 01/12/19 12:50 Hgb 14.7 GM/dL (11.7-16.9) 01/12/19 12:50 Hct 43.0 % (35.4-49) 01/12/19 12:50 MCV 86.6 fl (80-96) 01/12/19 12:50 MCH 29.6 pg (25.7-33.7) 01/12/19 12:50 MCHC 34.1 g/dl (32.0-35.9) 01/12/19 12:50 RDW 15.2 % (11.9-15.9) 01/12/19 12:50 Plt Count 142 K/MM3 (134-434) 01/12/19 12:50 MPV 8.9 fl (7.5-11.1) 01/12/19 12:50 Sodium 134 mmol/L (136-145) L 01/12/19 12:50 Potassium 4.2 mmol/L (3.5-5.1) 01/12/19 12:50 Chloride 99 mmol/L (98-107) 01/12/19 12:50 Carbon Dioxide 27 mmol/L (21-32) 01/12/19 12:50 Anion Gap 8 MMOL/L (8-16) 01/12/19 12:50 BUN 27.0 mg/dL (7-18) H 01/12/19 12:50 Creatinine 1.2 mg/dL (0.55-1.3) 01/12/19 12:50 Est GFR (CKD-EPI)AfAm 73.11 01/12/19 12:50 Est GFR (CKD-EPI)NonAf 63.08 01/12/19 12:50 Random Glucose 109 mg/dL (74-106) H 01/12/19 12:50 Calcium 9.6 mg/dL (8.5-10.1) 01/12/19 12:50 Total Bilirubin 1.3 mg/dL (0.2-1) H 01/12/19 12:50 AST 49 U/L (15-37) H 01/12/19 12:50 ALT 35 U/L (13-61) 01/12/19 12:50 Alkaline Phosphatase 55 U/L (45-117) 01/12/19 12:50 Total Protein 9.0 g/dl (6.4-8.2) H 01/12/19 12:50 Albumin 3.9 g/dl (3.4-5.0) 01/12/19 12:50 RPR Titer Nonreactive (NONREACTIVE) 01/12/19 12:50 Labs reviewed. - Treatment Hospital Course: Detox Protocol Followed, Detoxed Safely, Responded well, Discharged Condition Good (States feeling much better. States no nausea. Tolerating diet. Alert and oriented. Gait steady. Abd S/NT/BS+. No tremors. Patient declined NRT.) - Medication Discharge Medications: Ambulatory Orders traZODone HCL [Trazodone HCl] 150 mg PO HS 06/03/18 Latanoprost 0.005% Eye Drops [Xalatan 0.005% Eye Drops -] 1 drop OD HS 07/04/18 Risperidone [Risperdal -] 1 mg PO BID #60 tablet 10/01/18 - AMA Did Patient Leave Against Medical Advice: No
--- NOTE | 2019-01-14 18:52 | PN ---
[facility] Progress Note Note: States feeling much better. States no nausea. Tolerating diet. Requesting early release. Alert and oriented. Gait steady. Abd S/NT/BS+ No tremors. Declined NRT. States not ready to stop smoking at this time.
[2019-01-15] MEDS ORDERED: chlordiazePOXIDE HCL 10 MG CAPSULE PO PRN
[2019-01-15] MEDS ORDERED: chlordiazePOXIDE HCL 10 MG CAPSULE PO SCH (05:00)
[2019-01-16] MEDS ORDERED: chlordiazePOXIDE HCL 10 MG CAPSULE PO SCH (05:00)
[2019-01-17] MEDS ORDERED: chlordiazePOXIDE HCL 10 MG CAPSULE PO ONE (05:00)
== END 2019-01-14 19:07 | disposition home or self-care (01) | DRG 775 ==
LOC: YASAS 10:06 → Y6N 13:25
PROVIDERS: ADMIT Surgery; ATTEND Surgery
PROC: HZ2ZZZZ Detoxification Services for Substance Abuse Treatment (ICD-10-PCS; principal; 2019-01-12)
DX: F10.230 Alcohol dependence with withdrawal, uncomplicated (principal); B20 Human immunodeficiency virus [HIV] disease; G62.9 Polyneuropathy, unspecified; H40.9 Unspecified glaucoma; B18.2 Chronic viral hepatitis C; Z91.013 Allergy to seafood; Z91.048 Other nonmedicinal substance allergy status
CPT/HCPCS: 36415; 80053; 85027; 86593; J2794

== ENCOUNTER 2019-01-30 14:27 | Inpatient (IN) | payer OTHER ==
[2019-01-30 18:24] VITALS: BMI 26.4
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
[2019-01-30] MEDS ORDERED: PROCHLORPERAZINE MALEATE 5 MG TABLET PO PRN (19:41)
[2019-01-30] MEDS ORDERED: chlordiazePOXIDE HCL 10 MG CAPSULE PO PRN (19:41)
[2019-01-30] MEDS ORDERED: BISMUTH SUBSALICYLATE 524 MG/30 ML UD PO PRN (19:41)
[2019-01-30] MEDS ORDERED: METHOCARBAMOL 500 MG TABLET PO PRN (19:41)
[2019-01-30] MEDS ORDERED: MENTHOL/PHENOL 1 EACH UD MM PRN (19:41)
[2019-01-30] MEDS ORDERED: ACETAMINOPHEN 325 MG TABLET (FP) PO PRN ×2 (19:41)
[2019-01-30] MEDS ORDERED: MAG HYDROX/AL HYDROX/SIMETH 30 ML UNIT-DOSE CUP PO PRN (19:41)
[2019-01-30] MEDS ORDERED: MAGNESIUM HYDROX 2400MG/30ML ORAL SUSPENSION 30 ML CUP PO PRN (19:41)
[2019-01-30] MEDS ORDERED: NICOTINE POLACRILEX 2 MG GUM BUC PRN (19:41)
[2019-01-30] MEDS ORDERED: IBUPROFEN 400 MG TABLET (FP) PO PRN (19:41)
[2019-01-30] MEDS ORDERED: MAGNESIUM CITRATE 300 ML BOTTLE PO PRN (19:41)
[2019-01-30] MEDS ORDERED: traZODone HCL 50 MG TABLET (FP) PO ONE (19:48)
[2019-01-30] MEDS: chlordiazePOXIDE HCL 25 MG CAPSULE PO SCH (21:00)
[2019-01-30] MEDS ORDERED: risperiDONE 1 MG TABLET (FP) PO ONE (22:00)
[2019-01-30] MEDS: THIAMINE HCL 100 MG TABLET (FP) PO SCH (22:32)
[2019-01-30] MEDS: LATANOPROST 0.005% OPHTH SOLN 2.5ML BOTTLE OD SCH (23:45)
[2019-01-31] MEDS: chlordiazePOXIDE HCL 25 MG CAPSULE PO SCH ×3 (06:19→21:23)
[2019-01-31 10:19] LABS: BILIRUBIN,TOTAL 0.8 mg/dL (0.2-1); BLOOD UREA NITROGEN 10.4 mg/dL (7-18); HEMATOCRIT 38.6 % (35.4-49); HEMOGLOBIN 13.2 GM/dL (11.7-16.9); MCH 29.7 pg (25.7-33.7); MCHC 34.3 g/dl (32.0-35.9); MEAN CELL VOLUME 86.8 fl (80-96); MEAN PLT VOLUME 9.3 fl (7.5-11.1); PLATELET COUNT 104 K/MM3 (134-434); POTASSIUM 3.9 mmol/L (3.5-5.1); RBC 4.45 M/mm3 (4.00-5.60); TOT PROT 7.5 g/dl (6.4-8.2)
[2019-01-31] MEDS: PRENATAL VITAMINS W/ FOLIC ACID TABLET (FP) PO SCH (10:26)
[2019-01-31] MEDS: NICOTINE 14 MG/24 HOURS TOPICAL PATCH TD SCH (10:26)
--- NOTE | 2019-01-31 12:06 | PN ---
S CIWA - CIWA Score Nausea/Vomitin-No Nausea/No Vomiting Muscle Tremors: 2 Anxiety: 1-Mildly Anxious Agitation: 1-Slight > Activity Paroxysmal Sweats: 2 Orientation: 0-Oriented Tacttile Disturbances: 0-None Auditory Disturbances: 0-None Visual Disturbances: 0-None Headache: 0-None Present CIWA-Ar Total Score: 6 [facility] Progress Note (SOAP) Subjective: tired sleepy agitation sweats Objective: 01/31/19 12:05 Vital Signs Temperature 97.9 F 01/31/19 09:03 Pulse Rate 57 L 01/31/19 09:03 Respiratory Rate 18 01/31/19 09:03 Blood Pressure 150/80 01/31/19 09:03 O2 Sat by Pulse Oximetry (%) Laboratory Tests 01/31/19 01/31/19 08:00 08:00 WBC 3.0 L RBC 4.45 Hgb 13.2 Hct 38.6 MCV 86.8 MCH 29.7 MCHC 34.3 RDW 15.0 Plt Count 104 L D MPV 9.3 Sodium 139 Potassium 3.9 Chloride 108 H Carbon Dioxide 26 Anion Gap 5 L BUN 10.4 Creatinine 1.0 Est GFR (CKD-EPI)AfAm 91.13 Est GFR (CKD-EPI)NonAf 78.63 Random Glucose 110 H Calcium 9.0 Total Bilirubin 0.8 AST 26 ALT 19 Alkaline Phosphatase 53 Total Protein 7.5 Albumin 3.0 L labs noted aaox3 ambulating no acute distress Assessment: 01/31/19 12:05 mild withdrawals Plan: continue detox increase fluids
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
[2019-01-31] MEDS: THIAMINE HCL 100 MG TABLET (FP) PO SCH (21:24)
[2019-01-31] MEDS: LATANOPROST 0.005% OPHTH SOLN 2.5ML BOTTLE OD SCH (23:22)
[2019-02-01] MEDS: chlordiazePOXIDE 5 MG CAPSULE PO SCH ×3 (05:47→22:16)
[2019-02-01] MEDS: PRENATAL VITAMINS W/ FOLIC ACID TABLET (FP) PO SCH (10:14)
[2019-02-01] MEDS: NICOTINE 14 MG/24 HOURS TOPICAL PATCH TD SCH (10:14)
[2019-02-01] MEDS ORDERED: cloNIDine HCL 0.1 MG TABLET PO PRN (13:13)
--- NOTE | 2019-02-01 13:14 | PN ---
S CIWA - CIWA Score Nausea/Vomitin-Mild Nausea/No Vomiting Muscle Tremors: 2 Anxiety: 2 Agitation: 2 Paroxysmal Sweats: 2 Orientation: 0-Oriented Tacttile Disturbances: 0-None Auditory Disturbances: 0-None Visual Disturbances: 0-None Headache: 0-None Present CIWA-Ar Total Score: 9 BHS Progress Note (SOAP) Subjective: Tremor, interrupted sleep Objective: 02/01/19 13:12 Last Vital Signs Temp Pulse Resp BP Pulse Ox 96.8 F L 63 18 142/75 02/01/19 09:13 02/01/19 09:13 02/01/19 09:13 02/01/19 09:13 Elevated b/p: denies, htn; started on clonidine prn Laboratory Tests 01/31/19 01/31/19 08:00 08:00 WBC 3.0 L RBC 4.45 Hgb 13.2 Hct 38.6 MCV 86.8 MCH 29.7 MCHC 34.3 RDW 15.0 Plt Count 104 L D MPV 9.3 Sodium 139 Potassium 3.9 Chloride 108 H Carbon Dioxide 26 Anion Gap 5 L BUN 10.4 Creatinine 1.0 Est GFR (CKD-EPI)AfAm 91.13 Est GFR (CKD-EPI)NonAf 78.63 Random Glucose 110 H Calcium 9.0 Total Bilirubin 0.8 AST 26 ALT 19 Alkaline Phosphatase 53 Total Protein 7.5 Albumin 3.0 L Labs reviewed: plt 104 Assessment: 02/01/19 13:15 Withdrawal sxs Noted with thrombocytopenia Plan: Continue detox Encouraged PO water intake Elevated B/P: secondary to withdrawal: start clonidine 0.1mg PO q8hr prn if b/p => 140/90 Thrombocytopenia: most likely r/t alcohol use, encouraged abstinence, follow up with PCP for monitoring
[2019-02-01] MEDS: THIAMINE HCL 100 MG TABLET (FP) PO SCH (22:16)
[2019-02-01] MEDS: LATANOPROST 0.005% OPHTH SOLN 2.5ML BOTTLE OD SCH (22:19)
[2019-02-02] MEDS ORDERED: chlordiazePOXIDE HCL 10 MG CAPSULE PO PRN
[2019-02-02] MEDS: MELATONIN 5 MG TABLETS PO PRN ×2 (01:13→22:12)
[2019-02-02] MEDS: chlordiazePOXIDE HCL 10 MG CAPSULE PO SCH ×3 (05:37→22:12)
[2019-02-02] MEDS: PRENATAL VITAMINS W/ FOLIC ACID TABLET (FP) PO SCH (10:46)
[2019-02-02] MEDS: NICOTINE 14 MG/24 HOURS TOPICAL PATCH TD SCH (10:47)
--- NOTE | 2019-02-02 12:36 | PN ---
S CIWA - CIWA Score Nausea/Vomitin-No Nausea/No Vomiting Muscle Tremors: 2 Anxiety: 0-No Anxiety, at Ease Agitation: 1-Slight > Activity Paroxysmal Sweats: No Perspiration Orientation: 0-Oriented Tacttile Disturbances: 0-None Auditory Disturbances: 0-None Visual Disturbances: 0-None Headache: 0-None Present CIWA-Ar Total Score: 3 BHS Progress Note (SOAP) Subjective: anxiety Objective: 02/02/19 12:35 Vital Signs Temperature 97.7 F 02/02/19 09:18 Pulse Rate 57 L 02/02/19 09:18 Respiratory Rate 18 02/02/19 09:18 Blood Pressure 130/84 02/02/19 09:18 O2 Sat by Pulse Oximetry (%) aaox3 ambulating no acute distress Assessment: 02/02/19 12:36 mild withdrawals sx Plan: d/c in am
[2019-02-02] MEDS: THIAMINE HCL 100 MG TABLET (FP) PO SCH (22:12)
[2019-02-02] MEDS: LATANOPROST 0.005% OPHTH SOLN 2.5ML BOTTLE OD SCH ×2 (22:13→22:14)
[2019-02-03] MEDS ORDERED: chlordiazePOXIDE HCL 10 MG CAPSULE PO ONE (05:00)
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
[2019-02-03 09:14] VITALS: BP 131/85; PULSE 63; TEMP 97.2
[2019-02-03] MEDS: NICOTINE 14 MG/24 HOURS TOPICAL PATCH TD SCH (09:44)
[2019-02-03] MEDS: PRENATAL VITAMINS W/ FOLIC ACID TABLET (FP) PO SCH (09:44)
== END 2019-02-03 12:21 | disposition other institution (70) | DRG 774 ==
LOC: YASAS 14:27 → Y6N 19:56
PROVIDERS: ADMIT Allergy & Immunology; ATTEND Allergy & Immunology
PROC: HZ2ZZZZ Detoxification Services for Substance Abuse Treatment (ICD-10-PCS; principal; 2019-01-30)
DX: F10.230 Alcohol dependence with withdrawal, uncomplicated (principal); F14.20 Cocaine dependence, uncomplicated; F17.210 Nicotine dependence, cigarettes, uncomplicated; F19.282 Other psychoactive substance dependence with psychoactive substance-induced sleep disorder; F19.24 Other psychoactive substance dependence with psychoactive substance-induced mood disorder; F25.9 Schizoaffective disorder, unspecified; F31.81 Bipolar II disorder; F41.9 Anxiety disorder, unspecified; B20 Human immunodeficiency virus [HIV] disease; E86.0 Dehydration; H40.9 Unspecified glaucoma; H54.62 Unqualified visual loss, left eye, normal vision right eye; B18.2 Chronic viral hepatitis C; R07.89 Other chest pain; R63.4 Abnormal weight loss; Z68.26 Body mass index [BMI] 26.0-26.9, adult; Z91.013 Allergy to seafood; Z91.19 Patient's noncompliance with other medical treatment and regimen; Z88.8 Allergy status to other drugs, medicaments and biological substances; S05.72XS Avulsion of left eye, sequela; Z87.828 Personal history of other (healed) physical injury and trauma; Z91.09 Other allergy status, other than to drugs and biological substances; W34.00XS Accidental discharge from unspecified firearms or gun, sequela
CPT/HCPCS: 36415; 80053; 85027; J2794

== ENCOUNTER 2019-02-03 12:25 | Inpatient (IN) | payer OTHER ==
[2019-02-03] MEDS ORDERED: P-EPHED 60MG/TRIPROLIDI 2.5MG TABLET PO PRN (14:53)
[2019-02-03] MEDS ORDERED: NICOTINE POLACRILEX 4 MG GUM BUC PRN (14:53)
[2019-02-03] MEDS ORDERED: hydrOXYzine PAMOATE 50 MG CAPSULE (FP) PO PRN (14:53)
[2019-02-03] MEDS ORDERED: MAGNESIUM CITRATE 300 ML BOTTLE PO PRN (14:53)
[2019-02-03] MEDS ORDERED: MAG HYDROX/AL HYDROX/SIMETH 30 ML UNIT-DOSE CUP PO PRN (14:53)
[2019-02-03] MEDS ORDERED: MAGNESIUM HYDROX 2400MG/30ML ORAL SUSPENSION 30 ML CUP PO PRN (14:53)
[2019-02-03] MEDS ORDERED: guaiFENesin 200 MG/10 ML 10 ML UNIT-DOSE CUPS PO PRN (14:53)
[2019-02-03] MEDS ORDERED: ACETAMINOPHEN 325 MG TABLET (FP) PO PRN (14:53)
[2019-02-03] MEDS ORDERED: IBUPROFEN 400 MG TABLET (FP) PO PRN (14:53)
[2019-02-03] MEDS ORDERED: LOPERAMIDE HCL 2 MG CAPSULE PO PRN (14:53)
[2019-02-03] MEDS ORDERED: MENTHOL/PHENOL 1 EACH UD MM PRN (14:53)
--- NOTE | 2019-02-03 14:53 | HP ---
[facility] Rehab Assess/Revision - Admission History Admitted to Rehab from: [address] - Vital signs Vital Signs: Vital Signs Period Temp Pulse Resp BP Sys/Katz Pulse Ox Last 24 Hr 97.7 F 63 18 137/75 - Findings Detox History & Physical reviewed: Yes Concur with findings: Yes Inpatient Rehab Admission - Rehab Decision to Admit Inpatient rehab admission?: Yes - Initial Determination Are CD services needed?: Yes Free of communicable disease: Yes Not in need of hospitalization: Yes - Rehab Admission Criteria Previous failed treatment: Yes Poor recovery environment: Yes Comorbidities: Yes Lacks judgement: Yes Patient is meeting Inpatient Rehab admission criteria:: Yes
[2019-02-03] MEDS: THIAMINE HCL 100 MG TABLET (FP) PO SCH (21:06)
[2019-02-03] MEDS: MELATONIN 5 MG TABLETS PO PRN (21:06)
[2019-02-03] MEDS: LATANOPROST 0.005% OPHTH SOLN 2.5ML BOTTLE OD SCH (21:07)
[2019-02-04] MEDS: NICOTINE 21 MG/24 HOURS TOPICAL PATCH TD SCH (10:21)
[2019-02-04] MEDS: PRENATAL VITAMINS W/ FOLIC ACID TABLET (FP) PO SCH (10:21)
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
[2019-02-04] MEDS: risperiDONE 0.5 MG TABLET (FP) PO SCH (21:29)
[2019-02-04] MEDS: THIAMINE HCL 100 MG TABLET (FP) PO SCH (21:29)
[2019-02-04] MEDS: MELATONIN 5 MG TABLETS PO PRN (21:29)
[2019-02-04] MEDS: traZODone HCL 50 MG TABLET (FP) PO SCH (21:29)
[2019-02-04] MEDS: LATANOPROST 0.005% OPHTH SOLN 2.5ML BOTTLE OD SCH (21:29)
[2019-02-05] MEDS ORDERED: PT OWN MED DRAWER 7, Y5N ONE ×2 (09:00→18:49)
[2019-02-05] MEDS: NICOTINE 21 MG/24 HOURS TOPICAL PATCH TD SCH (10:41)
[2019-02-05] MEDS: PRENATAL VITAMINS W/ FOLIC ACID TABLET (FP) PO SCH (10:41)
[2019-02-05] MEDS: risperiDONE 0.5 MG TABLET (FP) PO SCH ×2 (10:42→21:08)
[2019-02-05] MEDS: LATANOPROST 0.005% OPHTH SOLN 2.5ML BOTTLE OD SCH (21:08)
[2019-02-05] MEDS: traZODone HCL 50 MG TABLET (FP) PO SCH (21:08)
[2019-02-05] MEDS: MELATONIN 5 MG TABLETS PO PRN (21:08)
[2019-02-05] MEDS: THIAMINE HCL 100 MG TABLET (FP) PO SCH (21:08)
[2019-02-06] MEDS: PRENATAL VITAMINS W/ FOLIC ACID TABLET (FP) PO SCH (10:25)
[2019-02-06] MEDS: risperiDONE 0.5 MG TABLET (FP) PO SCH ×2 (10:25→21:44)
[2019-02-06] MEDS: NICOTINE 21 MG/24 HOURS TOPICAL PATCH TD SCH (10:25)
[2019-02-06] MEDS: LATANOPROST 0.005% OPHTH SOLN 2.5ML BOTTLE OD SCH (21:44)
[2019-02-06] MEDS: traZODone HCL 50 MG TABLET (FP) PO SCH (21:44)
[2019-02-06] MEDS: THIAMINE HCL 100 MG TABLET (FP) PO SCH (21:44)
[2019-02-06] MEDS: MELATONIN 5 MG TABLETS PO PRN (21:44)
[2019-02-07 06:45] VITALS: BP 120/83; PULSE 58; TEMP 97.8
[2019-02-07] MEDS: risperiDONE 0.5 MG TABLET (FP) PO SCH (10:03)
[2019-02-07] MEDS: PRENATAL VITAMINS W/ FOLIC ACID TABLET (FP) PO SCH (10:03)
[2019-02-07] MEDS: NICOTINE 21 MG/24 HOURS TOPICAL PATCH TD SCH (10:04)
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
== END 2019-02-07 16:45 | disposition home or self-care (01) | DRG 772 ==
LOC: YASAS 12:25 → Y3W 12:26
PROVIDERS: ADMIT Neuromusculoskeletal Medicine & OMM; ATTEND Neuromusculoskeletal Medicine & OMM
PROC: HZ42ZZZ Group Counseling for Substance Abuse Treatment, Cognitive-Behavioral (ICD-10-PCS; principal; 2019-02-03)
DX: F10.20 Alcohol dependence, uncomplicated (principal); F14.20 Cocaine dependence, uncomplicated; F12.20 Cannabis dependence, uncomplicated; F17.210 Nicotine dependence, cigarettes, uncomplicated; F25.9 Schizoaffective disorder, unspecified; F31.9 Bipolar disorder, unspecified; B20 Human immunodeficiency virus [HIV] disease; B18.2 Chronic viral hepatitis C; H40.9 Unspecified glaucoma; K74.60 Unspecified cirrhosis of liver; S05.72XS Avulsion of left eye, sequela; Z91.013 Allergy to seafood; Z91.041 Radiographic dye allergy status; Z91.19 Patient's noncompliance with other medical treatment and regimen; Z87.828 Personal history of other (healed) physical injury and trauma
CPT/HCPCS: 82140

== ENCOUNTER 2019-12-06 21:58 | Inpatient (IN) | payer OTHER ==
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
[2019-12-06 23:14] VITALS: BMI 25.8
[2019-12-06] MEDS ORDERED: METHOCARBAMOL 500 MG TABLET PO PRN (23:35)
[2019-12-06] MEDS ORDERED: BISMUTH SUBSALICYLATE 524 MG/30 ML UD PO PRN (23:35)
[2019-12-06] MEDS ORDERED: MAGNESIUM HYDROX 2400MG/30ML ORAL SUSPENSION 30 ML CUP PO PRN (23:35)
[2019-12-06] MEDS ORDERED: MENTHOL/PHENOL 1 EACH UD MM PRN (23:35)
[2019-12-06] MEDS ORDERED: LORazepam 1 MG TABLET PO PRN (23:35)
[2019-12-06] MEDS ORDERED: MAGNESIUM CITRATE 300 ML BOTTLE PO PRN (23:35)
[2019-12-06] MEDS ORDERED: IBUPROFEN 400 MG TABLET (FP) PO PRN (23:35)
[2019-12-06] MEDS ORDERED: NICOTINE POLACRILEX 2 MG GUM BUC PRN (23:35)
[2019-12-06] MEDS ORDERED: MAG HYDROX/AL HYDROX/SIMETH 30 ML UNIT-DOSE CUP PO PRN (23:35)
[2019-12-06] MEDS ORDERED: ACETAMINOPHEN 325 MG TABLET (FP) PO PRN ×2 (23:35)
[2019-12-07] MEDS: LORazepam 2 MG TABLET PO SCH ×5 (00:46→22:12)
--- NOTE | 2019-12-07 09:18 | EKG ---
Test Reason : Blood Pressure : / mmHG Vent. Rate : 059 BPM Atrial Rate : 059 BPM P-R Int : 172 ms QRS Dur : 084 ms QT Int : 436 ms P-R-T Axes : 065 011 042 degrees QTc Int : 431 ms SINUS BRADYCARDIA OTHERWISE NORMAL ECG WHEN COMPARED WITH ECG OF 16-SEP-2018 19:19, T WAVE INVERSION NO LONGER EVIDENT IN INFERIOR LEADS Confirmed by SANDY ZARATE MD ([id number]) on 12/07/2019 9:17:55 AM Referred By: Confirmed By:SANDY ZARATE MD
[2019-12-07] MEDS ORDERED: PRENATAL VITAMINS W/ FOLIC ACID TABLET (FP) PO SCH (10:00)
[2019-12-07] MEDS ORDERED: NICOTINE 21 MG/24 HOURS TOPICAL PATCH TD SCH (10:00)
--- NOTE | 2019-12-07 11:18 | PN ---
BHS CIWA - CIWA Score Nausea/Vomitin-Mild Nausea/No Vomiting Muscle Tremors: 4-Moderate,w/Arms Extend Anxiety: 3 Agitation: 1-Slight > Activity Paroxysmal Sweats: No Perspiration Orientation: 0-Oriented Tacttile Disturbances: 0-None Auditory Disturbances: 0-None Visual Disturbances: 2-Mild Sensitivity Headache: 2-Mild CIWA-Ar Total Score: 13 BHS Progress Note (SOAP) Subjective: 64 years old male admitted on 12/06/19 for alcohol withdrawal sx management treating with ativan detox regiment ate breakfast in room feeling tired prefers to stay in bed limited conversation with staff Objective: 12/07/19 11:18 Vital Signs - 24 hr 12/06/19 12/07/19 12/07/19 23:11 00:27 08:31 Temperature 97.0 F L 97.3 F L Pulse Rate 72 72 72 Respiratory 18 18 18 Rate Blood Pressure 132/85 148/92 133/82 O2 Sat by Pulse 100 Oximetry (%) 12/07/19 11:18 lab pending Assessment: 12/07/19 11:18 alcohol withdrawal Plan: ativan regiment
[2019-12-07 12:08] LABS: HEMATOCRIT 37.2 % (35.4-49); HEMOGLOBIN 12.6 GM/dL (11.7-16.9); MCH 29.7 pg (25.7-33.7); MCHC 33.8 g/dl (32.0-35.9); MEAN CELL VOLUME 88.1 fl (80-96); MEAN PLT VOLUME 8.7 fl (7.5-11.1); PLATELET COUNT 122 K/MM3 (134-434); RBC 4.23 M/mm3 (4.00-5.60); RDW 14.3 % (11.9-15.9); WHITE BLOOD COUNT 2.3 K/mm3 (4.0-10.0)
[2019-12-07 13:16] LABS: BILIRUBIN,TOTAL 0.5 mg/dL (0.2-1); CALCIUM 8.3 mg/dL (8.5-10.1); CREATININE 1.1 mg/dL (0.55-1.3); POTASSIUM 4.2 mmol/L (3.5-5.1); TOT PROT 7.1 g/dl (6.4-8.2)
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
[2019-12-07] MEDS ORDERED: MELATONIN 5 MG TABLETS PO SCH (22:00)
[2019-12-07] MEDS ORDERED: traZODone HCL 50 MG TABLET (FP) PO SCH (22:00)
[2019-12-07] MEDS ORDERED: risperiDONE 0.5 MG TABLET PO SCH (22:00)
[2019-12-07] MEDS ORDERED: THIAMINE HCL 100 MG TABLET (FP) PO SCH (22:00)
[2019-12-08] MEDS ORDERED: LORazepam 1 MG TABLET PO SCH (05:00)
[2019-12-08 09:44] VITALS: BP 100/61; PULSE 54; TEMP 96.8
--- NOTE | 2019-12-08 11:45 | DS ---
[facility] Detox Discharge Summary Admission Date: 12/06/19 Discharge Date: 12/08/19 - History Present History: Alcohol Dependence Additional Comments: 64 years old male was admitted on 12/06/19 for alcohol withdrawal sx management treated with ativan detox regiment seen by psychiatrist resume respiradol and trazodone mr banegas prefers to go to [facility] or [facility] for alcohol recover today instead of estimated discharge date of 12/10/19 General Appearance: Yes: Moderate Distress, Tremorous, Anxious HEENTM: Yes: Within Normal Limits Respiratory: Yes: Lungs Clear, Normal Breath Sounds, No Respiratory Distress Neck: Yes: Within Normal Limits Breast: Yes: Breast Exam Deferred Cardiology: Yes: Within Normal Limits Abdominal: Yes: Normal Bowel Sounds, Soft Genitourinary: Yes: Within Normal Limits Back: Yes: Normal Inspection Musculoskeletal: Yes: Back pain Extremities: Yes: Tremors Neurological: Yes: Within Normal Limits, Alert, Normal Mood/Affect Integumentary: Yes: Warm Lymphatic: Yes: Within Normal Limits Pertinent Past History: time for discharge 47 minutes treatment team met with mr banegas to discuss benefits of ativan regiment completion mr banegas insists to leave the detox unit that [facility] or [facility] can help alcohol recovery mr banegas will follow up with [facility] for resperidal and trazodone - Physical Exam Results Vital Signs: Vital Signs Temperature 96.8 F L 12/08/19 08:52 Pulse Rate 54 L 12/08/19 08:52 Respiratory Rate 18 12/08/19 08:52 Blood Pressure 100/61 12/08/19 08:52 O2 Sat by Pulse Oximetry (%) 97 12/08/19 08:52 Pertinent Admission Physical Exam Findings: alcohol withdrawal Vital Signs - 24 hr 12/07/19 12/07/19 12/08/19 16:31 20:23 06:18 Temperature 98.6 F 98.8 F 97.1 F L Pulse Rate 72 68 66 Respiratory 18 16 16 Rate Blood Pressure 122/73 139/80 129/73 O2 Sat by Pulse 100 97 Oximetry (%) 12/08/19 12/08/19 08:27 08:52 Temperature 98.2 F 96.8 F L Pulse Rate 68 54 L Respiratory 16 18 Rate Blood Pressure 109/70 100/61 O2 Sat by Pulse 97 97 Oximetry (%) Laboratory Tests 12/06/19 12/07/19 12/07/19 23:55 08:15 08:15 WBC 2.3 L RBC 4.23 Hgb 12.6 Hct 37.2 MCV 88.1 MCH 29.7 MCHC 33.8 RDW 14.3 Plt Count 122 L MPV 8.7 Sodium Potassium Chloride Carbon Dioxide Anion Gap BUN Creatinine Est GFR (CKD-EPI)AfAm Est GFR (CKD-EPI)NonAf Random Glucose Calcium Total Bilirubin AST ALT Alkaline Phosphatase Total Protein Albumin Syphilis Serology Non-reactive COVID-19 (JAY) Not detected 12/07/19 08:15 WBC RBC Hgb Hct MCV MCH MCHC RDW Plt Count MPV Sodium 142 Potassium 4.2 Chloride 106 Carbon Dioxide 27 Anion Gap 8 BUN 14.0 Creatinine 1.1 Est GFR (CKD-EPI)AfAm 80.65 Est GFR (CKD-EPI)NonAf 69.58 Random Glucose 91 Calcium 8.3 L Total Bilirubin 0.5 AST 42 H ALT 31 Alkaline Phosphatase 99 Total Protein 7.1 Albumin 3.0 L Syphilis Serology COVID-19 (JAY) mr banegas will follow up with infectious disease provider for low wbc - Treatment Hospital Course: Detox Protocol Followed, Detoxed Safely, Responded well, Discharged Condition Good, Rehab Referral Accepted Patient has Accepted a Rehab Referral to: [facility] - Medication Discharge Medications: Ambulatory Orders traZODone HCL [Trazodone HCl] 150 mg PO HS 06/03/18 Latanoprost 0.005% Eye Drops [Xalatan 0.005% Eye Drops -] 1 drop OD HS 07/04/18 Risperidone [Risperdal -] 1 mg PO BID #60 tablet 10/01/18 - Diagnosis (1) Uncomplicated alcohol dependence Status: Acute (2) Glaucoma, right eye Status: Chronic Qualifiers: Glaucoma type: unspecified Qualified Code(s): H40.9 - Unspecified glaucoma (3) History of HIV infection Status: Chronic (4) History of hepatitis C Status: Chronic (5) Cirrhosis of liver Status: Chronic Qualifiers: Hepatic cirrhosis type: alcoholic cirrhosis Ascites presence: without ascites Qualified Code(s): K70.30 - Alcoholic cirrhosis of liver without ascites (6) HEP-C Status: Chronic (7) Nicotine dependence Status: Chronic Qualifiers: Nicotine product type: cigarettes Substance use status: in withdrawal Qualified Code(s): F17.213 - Nicotine dependence, cigarettes, with withdrawal (8) Blind left eye Status: Chronic Qualifiers: Right eye visual impairment category: right - unspecified impairment Qualified Code(s): H54.40 - Blindness, one eye, unspecified eye (9) Schizoaffective disorder Status: Suspected Qualifiers: Schizoaffective disorder type: unspecified Qualified Code(s): F25.9 - Schizoaffective disorder, unspecified - AMA Did Patient Leave Against Medical Advice: No CIWA Score - CIWA Score Nausea/Vomitin-Mild Nausea/No Vomiting Muscle Tremors: 3 Anxiety: 1-Mildly Anxious Agitation: 0-Normal Activity Paroxysmal Sweats: No Perspiration Orientation: 0-Oriented Tacttile Disturbances: 0-None Auditory Disturbances: 0-None Visual Disturbances: 1-Very Mild Sensitivity Headache: 1-Very Mild CIWA-Ar Total Score: 7
[2019-12-09] MEDS ORDERED: LORazepam 0.5 MG TABLET PO PRN
[2019-12-09] MEDS ORDERED: LORazepam 0.5 MG TABLET PO SCH (05:00)
[2019-12-10] MEDS ORDERED: LORazepam 0.5 MG TABLET PO ONE (05:00)
== END 2019-12-08 11:48 | disposition home or self-care (01) | DRG 774 ==
LOC: YASAS 21:58 → Y6N 23:23 → Y3N 12-07 00:15
PROVIDERS: ADMIT Allergy & Immunology; ATTEND Allergy & Immunology
PROC: HZ2ZZZZ Detoxification Services for Substance Abuse Treatment (ICD-10-PCS; principal; 2019-12-06)
DX: F10.230 Alcohol dependence with withdrawal, uncomplicated (principal); F14.20 Cocaine dependence, uncomplicated; F17.213 Nicotine dependence, cigarettes, with withdrawal; F19.24 Other psychoactive substance dependence with psychoactive substance-induced mood disorder; F31.9 Bipolar disorder, unspecified; F25.9 Schizoaffective disorder, unspecified; B20 Human immunodeficiency virus [HIV] disease; H40.9 Unspecified glaucoma; K70.30 Alcoholic cirrhosis of liver without ascites; G62.9 Polyneuropathy, unspecified; B18.2 Chronic viral hepatitis C; H54.62 Unqualified visual loss, left eye, normal vision right eye; S05.72XD Avulsion of left eye, subsequent encounter; X95 Assault by other and unspecified firearm and gun discharge; Z91.19 Patient's noncompliance with other medical treatment and regimen; Z91.018 Allergy to other foods
CPT/HCPCS: 36415; 80053; 85027; 86780; 93005; 93010; U0003

== ENCOUNTER 2020-06-23 12:48 | Inpatient (IN) | payer OTHER ==
[2020-06-23 15:30] VITALS: BMI 24.2
[2020-06-23] MEDS ORDERED: ACETAMINOPHEN 325 MG TABLET (FP) PO PRN ×2 (15:51)
[2020-06-23] MEDS ORDERED: ONDANSETRON *ODT* 4 MG TABLET SL PRN (15:51)
[2020-06-23] MEDS ORDERED: METHOCARBAMOL 500 MG TABLET PO PRN (15:51)
[2020-06-23] MEDS ORDERED: MAG HYDROX/AL HYDROX/SIMETH 30 ML UNIT-DOSE CUP PO PRN (15:51)
[2020-06-23] MEDS ORDERED: NICOTINE POLACRILEX 2 MG GUM BUC PRN (15:51)
[2020-06-23] MEDS ORDERED: MAGNESIUM HYDROX 2400MG/30ML ORAL SUSPENSION 30 ML CUP PO PRN (15:51)
[2020-06-23] MEDS ORDERED: IBUPROFEN 400 MG TABLET (FP) PO PRN (15:51)
[2020-06-23] MEDS ORDERED: LORazepam 1 MG TABLET PO PRN (15:51)
[2020-06-23] MEDS ORDERED: BISMUTH SUBSALICYLATE 524 MG/30 ML UD PO PRN (15:51)
[2020-06-23] MEDS ORDERED: MAGNESIUM CITRATE 300 ML BOTTLE PO PRN (15:51)
[2020-06-23] MEDS ORDERED: MENTHOL/PHENOL 1 EACH UD MM PRN (15:51)
[2020-06-23] MEDS: LORazepam 2 MG TABLET PO SCH ×2 (18:17→23:46)
[2020-06-23] MEDS: hydrOXYzine PAMOATE 25 MG CAPSULE (FP) PO SCH ×2 (18:17→23:45)
[2020-06-23] MEDS: PRENATAL VITAMINS W/ FOLIC ACID TABLET (FP) PO SCH (18:18)
[2020-06-23] MEDS: NICOTINE 14 MG/24 HOURS TOPICAL PATCH TD SCH (18:21)
[2020-06-23] MEDS: MELATONIN 5 MG TABLETS PO SCH (23:45)
[2020-06-23] MEDS: THIAMINE HCL 100 MG TABLET (FP) PO SCH (23:45)
[2020-06-23] MEDS: LATANOPROST 0.005% OPHTH SOLN 2.5ML BOTTLE OD SCH (23:46)
[2020-06-24] MEDS: LORazepam 2 MG TABLET PO SCH ×4 (05:51→22:27)
[2020-06-24] MEDS: hydrOXYzine PAMOATE 25 MG CAPSULE (FP) PO SCH (05:51)
[2020-06-24] MEDS ORDERED: hydrOXYzine PAMOATE 25 MG CAPSULE (FP) PO PRN (09:35)
[2020-06-24] MEDS: risperiDONE 0.5 MG TABLET PO SCH ×2 (10:45→22:27)
[2020-06-24] MEDS: NICOTINE 14 MG/24 HOURS TOPICAL PATCH TD SCH (10:45)
[2020-06-24] MEDS: PRENATAL VITAMINS W/ FOLIC ACID TABLET (FP) PO SCH (10:45)
[2020-06-24 11:27] LABS: POTASSIUM 3.9 mmol/L (3.5-5.1)
[2020-06-24 11:32] LABS: HEMATOCRIT 38.4 % (35.4-49); HEMOGLOBIN 13.3 GM/dL (11.7-16.9); MCH 30.7 pg (25.7-33.7); MCHC 34.6 g/dl (32.0-35.9); MEAN CELL VOLUME 88.8 fl (80-96); MEAN PLT VOLUME 8.9 fl (7.5-11.1); PLATELET COUNT 120 K/MM3 (134-434); RBC 4.33 M/mm3 (4.00-5.60); RDW 15.1 % (11.9-15.9); WHITE BLOOD COUNT 2.1 K/mm3 (4.0-10.0)
[2020-06-24 11:33] LABS: CALCIUM 8.7 mg/dL (8.5-10.1)
[2020-06-24 11:34] LABS: ALBUMIN 3.2 g/dl (3.4-5.0); BLOOD UREA NITROGEN 11.4 mg/dL (7-18)
[2020-06-24 11:37] LABS: BILIRUBIN,TOTAL 0.8 mg/dL (0.2-1)
[2020-06-24 11:38] LABS: TOT PROT 6.9 g/dl (6.4-8.2)
[2020-06-24] MEDS: THIAMINE HCL 100 MG TABLET (FP) PO SCH (22:27)
[2020-06-24] MEDS: traZODone HCL 50 MG TABLET (FP) PO SCH (22:27)
[2020-06-24] MEDS: MELATONIN 5 MG TABLETS PO SCH (22:28)
[2020-06-24] MEDS: LATANOPROST 0.005% OPHTH SOLN 2.5ML BOTTLE OD SCH (22:29)
[2020-06-25] MEDS: LORazepam 1 MG TABLET PO SCH ×4 (07:47→22:08)
[2020-06-25] MEDS: PRENATAL VITAMINS W/ FOLIC ACID TABLET (FP) PO SCH (11:38)
[2020-06-25] MEDS: risperiDONE 0.5 MG TABLET PO SCH ×2 (11:40→22:07)
[2020-06-25] MEDS: NICOTINE 14 MG/24 HOURS TOPICAL PATCH TD SCH (11:40)
[2020-06-25] MEDS: traZODone HCL 50 MG TABLET (FP) PO SCH (22:07)
[2020-06-25] MEDS: THIAMINE HCL 100 MG TABLET (FP) PO SCH (22:07)
[2020-06-25] MEDS: MELATONIN 5 MG TABLETS PO SCH (22:08)
[2020-06-25] MEDS: LATANOPROST 0.005% OPHTH SOLN 2.5ML BOTTLE OD SCH (23:15)
[2020-06-26] MEDS ORDERED: LORazepam 0.5 MG TABLET PO PRN
[2020-06-26] MEDS: LORazepam 0.5 MG TABLET PO SCH ×4 (06:00→22:12)
[2020-06-26] MEDS: NICOTINE 14 MG/24 HOURS TOPICAL PATCH TD SCH (10:47)
[2020-06-26] MEDS: PRENATAL VITAMINS W/ FOLIC ACID TABLET (FP) PO SCH (10:50)
[2020-06-26] MEDS: risperiDONE 0.5 MG TABLET PO SCH ×2 (10:50→22:14)
[2020-06-26] MEDS: traZODone HCL 50 MG TABLET (FP) PO SCH (22:12)
[2020-06-26] MEDS: MELATONIN 5 MG TABLETS PO SCH (22:12)
[2020-06-26] MEDS: THIAMINE HCL 100 MG TABLET (FP) PO SCH (22:13)
[2020-06-26] MEDS: LATANOPROST 0.005% OPHTH SOLN 2.5ML BOTTLE OD SCH (22:15)
[2020-06-27] MEDS ORDERED: LORazepam 0.5 MG TABLET PO ONE (05:00)
[2020-06-27 07:17] VITALS: BP 110/66; PULSE 54; TEMP 97.3
[2020-06-27] MEDS: PRENATAL VITAMINS W/ FOLIC ACID TABLET (FP) PO SCH (10:24)
[2020-06-27] MEDS: risperiDONE 0.5 MG TABLET PO SCH (10:24)
[2020-06-27] MEDS: NICOTINE 14 MG/24 HOURS TOPICAL PATCH TD SCH (10:25)
== END 2020-06-27 11:28 | disposition other institution (70) | DRG 774 ==
LOC: YASAS 12:48 → Y3N 16:44
PROVIDERS: ADMIT Allergy & Immunology; ATTEND Allergy & Immunology
PROC: HZ2ZZZZ Detoxification Services for Substance Abuse Treatment (ICD-10-PCS; principal; 2020-06-23)
DX: F10.230 Alcohol dependence with withdrawal, uncomplicated (principal); F14.20 Cocaine dependence, uncomplicated; F17.210 Nicotine dependence, cigarettes, uncomplicated; F19.282 Other psychoactive substance dependence with psychoactive substance-induced sleep disorder; F19.24 Other psychoactive substance dependence with psychoactive substance-induced mood disorder; F25.9 Schizoaffective disorder, unspecified; F31.81 Bipolar II disorder; F41.9 Anxiety disorder, unspecified; Z21 Asymptomatic human immunodeficiency virus [HIV] infection status; D69.6 Thrombocytopenia, unspecified; D72.819 Decreased white blood cell count, unspecified; G62.9 Polyneuropathy, unspecified; H40.9 Unspecified glaucoma; H54.62 Unqualified visual loss, left eye, normal vision right eye; K70.30 Alcoholic cirrhosis of liver without ascites; B18.2 Chronic viral hepatitis C; Z86.19 Personal history of other infectious and parasitic diseases; Z91.013 Allergy to seafood; Z91.048 Other nonmedicinal substance allergy status; Z59.0 Homelessness; Z91.19 Patient's noncompliance with other medical treatment and regimen; Z87.828 Personal history of other (healed) physical injury and trauma
CPT/HCPCS: 36415; 80053; 82962; 85027; 86780; C9803; U0003

== ENCOUNTER 2020-06-27 11:48 | Inpatient (IN) | payer OTHER ==
[2020-06-27] MEDS: traZODone HCL 50 MG TABLET (FP) PO SCH (21:39)
[2020-06-27] MEDS ORDERED: risperiDONE 0.5 MG TABLET PO SCH (22:00)
[2020-06-27] MEDS: risperiDONE 1 MG TABLET PO SCH (22:15)
[2020-06-28] MEDS ORDERED: MENTHOL/PHENOL 1 EACH UD MM PRN (07:26)
[2020-06-28] MEDS ORDERED: MAG HYDROX/AL HYDROX/SIMETH 30 ML UNIT-DOSE CUP PO PRN (07:26)
[2020-06-28] MEDS ORDERED: ACETAMINOPHEN 325 MG TABLET (FP) PO PRN (07:26)
[2020-06-28] MEDS ORDERED: MAGNESIUM HYDROX 2400MG/30ML ORAL SUSPENSION 30 ML CUP PO PRN (07:26)
[2020-06-28] MEDS ORDERED: P-EPHED 60MG/TRIPROLIDI 2.5MG TABLET PO PRN (07:26)
[2020-06-28] MEDS ORDERED: MAGNESIUM CITRATE 300 ML BOTTLE PO PRN (07:26)
[2020-06-28] MEDS ORDERED: LOPERAMIDE HCL 2 MG CAPSULE PO PRN (07:26)
[2020-06-28] MEDS ORDERED: guaiFENesin 200 MG/10 ML 10 ML UNIT-DOSE CUPS PO PRN (07:26)
[2020-06-28] MEDS: PRENATAL VITAMINS W/ FOLIC ACID TABLET (FP) PO SCH (09:57)
[2020-06-28] MEDS: risperiDONE 1 MG TABLET PO SCH ×2 (09:58→21:09)
[2020-06-28] MEDS: THIAMINE HCL 100 MG TABLET (FP) PO SCH (21:09)
[2020-06-28] MEDS: traZODone HCL 50 MG TABLET (FP) PO SCH (21:09)
[2020-06-29] MEDS: PRENATAL VITAMINS W/ FOLIC ACID TABLET (FP) PO SCH (09:45)
[2020-06-29] MEDS: risperiDONE 1 MG TABLET PO SCH ×2 (09:45→21:29)
[2020-06-29] MEDS: MELATONIN 5 MG TABLETS PO PRN (21:29)
[2020-06-29] MEDS: traZODone HCL 50 MG TABLET (FP) PO SCH (21:29)
[2020-06-29] MEDS: THIAMINE HCL 100 MG TABLET (FP) PO SCH (21:29)
[2020-06-30] MEDS: PRENATAL VITAMINS W/ FOLIC ACID TABLET (FP) PO SCH (09:41)
[2020-06-30] MEDS: risperiDONE 1 MG TABLET PO SCH ×2 (09:41→21:49)
[2020-06-30] MEDS: traZODone HCL 50 MG TABLET (FP) PO SCH (21:49)
[2020-06-30] MEDS: THIAMINE HCL 100 MG TABLET (FP) PO SCH (21:49)
[2020-06-30] MEDS: MELATONIN 5 MG TABLETS PO PRN (21:56)
[2020-07-01] MEDS: PRENATAL VITAMINS W/ FOLIC ACID TABLET (FP) PO SCH (11:00)
[2020-07-01] MEDS: risperiDONE 1 MG TABLET PO SCH ×2 (11:00→22:17)
[2020-07-01] MEDS: IBUPROFEN 400 MG TABLET (FP) PO PRN (17:39)
[2020-07-01] MEDS ORDERED: hydrOXYzine PAMOATE 25 MG CAPSULE (FP) PO PRN (18:00)
[2020-07-01] MEDS: traZODone HCL 50 MG TABLET (FP) PO SCH (22:17)
[2020-07-01] MEDS: MELATONIN 5 MG TABLETS PO PRN (22:17)
[2020-07-01] MEDS: THIAMINE HCL 100 MG TABLET (FP) PO SCH (22:17)
[2020-07-02] MEDS: PRENATAL VITAMINS W/ FOLIC ACID TABLET (FP) PO SCH (10:38)
[2020-07-02] MEDS: risperiDONE 1 MG TABLET PO SCH ×2 (10:38→21:54)
[2020-07-02] MEDS: IBUPROFEN 400 MG TABLET (FP) PO PRN (14:52)
[2020-07-02] MEDS: traZODone HCL 50 MG TABLET (FP) PO SCH (21:54)
[2020-07-02] MEDS: THIAMINE HCL 100 MG TABLET (FP) PO SCH (21:54)
[2020-07-02] MEDS: MELATONIN 5 MG TABLETS PO PRN (21:54)
[2020-07-03 08:00] VITALS: TEMP 97.7
[2020-07-03] MEDS: PRENATAL VITAMINS W/ FOLIC ACID TABLET (FP) PO SCH (09:41)
[2020-07-03] MEDS: risperiDONE 1 MG TABLET PO SCH ×2 (09:41→21:55)
[2020-07-03] MEDS: traZODone HCL 50 MG TABLET (FP) PO SCH (21:55)
[2020-07-03] MEDS: THIAMINE HCL 100 MG TABLET (FP) PO SCH (21:56)
[2020-07-04] MEDS: PRENATAL VITAMINS W/ FOLIC ACID TABLET (FP) PO SCH (09:46)
[2020-07-04] MEDS: risperiDONE 1 MG TABLET PO SCH (09:46)
[2020-07-04 14:15] VITALS: BP 135/81; PULSE 65
== END 2020-07-04 15:52 | disposition home or self-care (01) | DRG 772 ==
LOC: YASAS 11:48 → Y3W 11:50
PROVIDERS: ADMIT Allergy & Immunology; ATTEND Allergy & Immunology
PROC: HZ42ZZZ Group Counseling for Substance Abuse Treatment, Cognitive-Behavioral (ICD-10-PCS; principal; 2020-06-27)
DX: F10.20 Alcohol dependence, uncomplicated (principal); F14.20 Cocaine dependence, uncomplicated; U07.1 COVID-19; Z21 Asymptomatic human immunodeficiency virus [HIV] infection status; B18.2 Chronic viral hepatitis C; Z59.0 Homelessness; Z91.013 Allergy to seafood; Z91.018 Allergy to other foods
CPT/HCPCS: 83036; C9803; J2794; U0003

== ENCOUNTER 2020-08-06 19:48 | Inpatient (IN) | payer OTHER ==
[2020-08-06 22:40] VITALS: BMI 24.0
[2020-08-06] MEDS ORDERED: P-EPHED 60MG/TRIPROLIDI 2.5MG TABLET PO PRN (23:04)
[2020-08-06] MEDS ORDERED: ACETAMINOPHEN 325 MG TABLET (FP) PO PRN ×2 (23:04)
[2020-08-06] MEDS ORDERED: MENTHOL/PHENOL 1 EACH UD MM PRN (23:04)
[2020-08-06] MEDS ORDERED: MAGNESIUM HYDROX 2400MG/30ML ORAL SUSPENSION 30 ML CUP PO PRN (23:04)
[2020-08-06] MEDS ORDERED: ONDANSETRON *ODT* 4 MG TABLET SL PRN (23:04)
[2020-08-06] MEDS ORDERED: MAGNESIUM CITRATE 300 ML BOTTLE PO PRN (23:04)
[2020-08-06] MEDS ORDERED: guaiFENesin 200 MG/10 ML 10 ML UNIT-DOSE CUPS PO PRN (23:04)
[2020-08-06] MEDS ORDERED: MAG HYDROX/AL HYDROX/SIMETH 30 ML UNIT-DOSE CUP PO PRN (23:04)
[2020-08-06] MEDS ORDERED: NICOTINE POLACRILEX 2 MG GUM BUC PRN (23:04)
[2020-08-06] MEDS ORDERED: IBUPROFEN 400 MG TABLET (FP) PO PRN (23:04)
[2020-08-06] MEDS ORDERED: hydrOXYzine PAMOATE 25 MG CAPSULE (FP) PO PRN (23:04)
[2020-08-06] MEDS ORDERED: METHOCARBAMOL 500 MG TABLET PO PRN (23:04)
[2020-08-06] MEDS ORDERED: BISMUTH SUBSALICYLATE 524 MG/30 ML UD PO PRN (23:04)
[2020-08-06] MEDS ORDERED: DICYCLOMINE HCL 10 MG CAPSULE PO PRN (23:04)
[2020-08-07] MEDS: PRENATAL VITAMINS W/ FOLIC ACID TABLET (FP) PO SCH (10:15)
[2020-08-07] MEDS: NICOTINE 14 MG/24 HOURS TOPICAL PATCH TD SCH (10:15)
[2020-08-07 10:39] LABS: HEMATOCRIT 38.2 % (35.4-49); MCH 30.4 pg (25.7-33.7); MCHC 34.1 g/dl (32.0-35.9); MEAN CELL VOLUME 89.3 fl (80-96); PLATELET COUNT 79 K/MM3 (134-434); RBC 4.28 M/mm3 (4.00-5.60); WHITE BLOOD COUNT 3.3 K/mm3 (4.0-10.0)
[2020-08-07 10:41] LABS: ALBUMIN 3.4 g/dl (3.4-5.0); BLOOD UREA NITROGEN 12.7 mg/dL (7-18)
[2020-08-07 10:46] LABS: BILIRUBIN,TOTAL 1.2 mg/dL (0.2-1)
[2020-08-07] MEDS ORDERED: THIAMINE HCL 100 MG TABLET (FP) PO SCH (22:00)
[2020-08-07] MEDS ORDERED: MELATONIN 5 MG TABLETS PO SCH (22:00)
[2020-08-08] MEDS: NICOTINE 14 MG/24 HOURS TOPICAL PATCH TD SCH (10:44)
[2020-08-08] MEDS: PRENATAL VITAMINS W/ FOLIC ACID TABLET (FP) PO SCH (10:44)
[2020-08-08 21:09] VITALS: BP 129/81; PULSE 80; TEMP 96.3
[2020-08-08] MEDS ORDERED: risperiDONE 0.5 MG TABLET PO SCH (22:00)
[2020-08-08] MEDS ORDERED: traZODone HCL 50 MG TABLET (FP) PO SCH (22:00)
[2020-08-09 06:06] LABS: SARS-CoV-2 NAA Not Detected (Not Detected)
== END 2020-08-08 21:57 | disposition home or self-care (01) | DRG 774 ==
LOC: YASAS 19:48 → Y6N 22:51
PROVIDERS: ADMIT Allergy & Immunology; ATTEND Allergy & Immunology
PROC: HZ2ZZZZ Detoxification Services for Substance Abuse Treatment (ICD-10-PCS; principal; 2020-08-06)
DX: F10.230 Alcohol dependence with withdrawal, uncomplicated (principal); F14.20 Cocaine dependence, uncomplicated; F17.210 Nicotine dependence, cigarettes, uncomplicated; F19.282 Other psychoactive substance dependence with psychoactive substance-induced sleep disorder; F25.9 Schizoaffective disorder, unspecified; Z21 Asymptomatic human immunodeficiency virus [HIV] infection status; G62.9 Polyneuropathy, unspecified; E11.9 Type 2 diabetes mellitus without complications; I10 Essential (primary) hypertension; K70.30 Alcoholic cirrhosis of liver without ascites; B18.2 Chronic viral hepatitis C; H54.62 Unqualified visual loss, left eye, normal vision right eye; Z86.16 Personal history of COVID-19; Z91.048 Other nonmedicinal substance allergy status; Z91.013 Allergy to seafood
CPT/HCPCS: 36415; 80053; 82962; 85027; 86780; C9803; U0003; U0005